=== PATIENT | female | born 1945 | race Caucasian/White ===

== ENCOUNTER → 2017-01-11 | Outpatient (CLI) | payer MEDICARE, OTHER ==
--- NOTE | 2017-01-11 16:41 | RADIOLOGY REPORT (SQ) ---
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 RADIONUCLIDE AND DOSE: 15.0 mCi F18 FDG The route of agent administration: Intravenous FASTING BLOOD SUGAR: 96 mg/dl CONTRAST TYPE AND DOSE: No CT contrast given. TECHNIQUE: Blood glucose level was verified. Above dose of FDG was injected intravenously. 2-D seg mented attenuation correction images were obtained from the base of the skull to the midthighs. Nonc ontrast CT images were obtained for attenuation correction and fusion with emission images. CT image s were performed without oral or intravenous contrast and are not sensitive for parenchymal lesions. A series of overlapping emission PET images were obtained. Images reviewed and manipulated at [facility] work station by the radiologist. Images stored on PACS. LIMITATIONS: None. FINDINGS: HEAD AND NECK: No areas of abnormal metabolic activity in the soft tissues of the head and neck. CHEST: No areas of abnormal metabolic activity in the chest. There are now surgical changes in the r ight breast with a 5 cm non metabolic postoperative fluid collection. Previously seen hypermetabolic right axillary lymph node is no longer present. ABDOMEN AND PELVIS: No areas of abnormal metabolic activity in the abdomen or pelvis. Expected physi ologic activity is present in the genitourinary system and bowel. PROXIMAL LOWER EXTREMITIES: No areas of abnormal metabolic activity in the soft tissues of the lower extremities. ADDITIONAL CT FINDINGS: Bilateral pleural effusions. Vascular access port in the chest. Gallstones. 3 cm right ovarian cyst. OTHER: No other significant findings. IMPRESSION: 1. UNREMARKABLE PET SCAN. THERE ARE SURGICAL CHANGES IN THE RIGHT BREAST WITH POSTOPERATIVE FLUID CO LLECTION, SEROMA. PREVIOUSLY SEEN HYPERMETABOLIC RIGHT AXILLARY LYMPH NODE IS NO LONGER PRESENT. 2. SMALL BILATERAL PLEURAL EFFUSIONS, NOT PRESENT PREVIOUSLY. 3. OTHER INCIDENTAL CT FINDINGS DESCRIBED INCLUDING GALLSTONES AND A RIGHT OVARIAN CYST. TECHNICAL DOCUMENTATION: JOB ID: [id number]- All Rights Reserved
== END ==
LOC: RAD 08:32
PROVIDERS: ATTEND Internal Medicine Medical Oncology
DX: C50.111 Malignant neoplasm of central portion of right female breast (principal); J90 Pleural effusion, not elsewhere classified
CPT/HCPCS: 78815; A9552

== ENCOUNTER → 2017-02-14 | Outpatient (CLI) | payer MEDICARE, OTHER ==
--- NOTE | 2017-02-15 10:50 | RADIOLOGY REPORT (SQ) ---
EXAM DESCRIPTION: MRI BREAST BILAT W AND/OR WO COMPLETED DATE/TIME: 02/14/2017 11:14 am REASON FOR STUDY: MALIGNANT NEOPLASM OF UPPER INNER QUADRANT OF RIGHT BREAST C50.111 MALIGNANT NEOP LASM OF CENTRAL PORTION OF RIGHT FEMAL COMPARISON: Mammograms 05/07/2015, 05/14/2015, 04/26/2016, 02/14/2017 Right breast ultrasound 05/14/2015 Bilateral breast MRI 05/21/2015 PET-CT 01/11/2017 PATHOLOGIC CORRELATION: Right upper inner quadrant breast biopsy 05/14/2015 invasive carcinoma CONTRAST TYPE AND DOSE: 20 mL Prohance. RENAL FUNCTION: GFR > 60. TECHNIQUE: MR imaging performed with a dedicated breast coil. Pre contrast T1 and T2 weighted images . Pre contrast and post contrast enhanced T1 weighted images with fat saturation. Subtraction images, 3D thick and thin MIPS, and kinetic analysis performed on an independent workstat ion. ([employer] workstation) Magnet strength: 1.5 T LIMITATIONS: None. FINDINGS: BREAST DENSITY: b. There are scattered areas of fibroglandular density. BACKGROUND PARENCHYMAL ENHANCEMENT:Minimal. RIGHT BREAST: No enhancing or suspicious masses. No clumped, regional/segmental ductal enhancement. There is a thin walled cavity in the upper inner quadrant of the right breast. There is thin rim of peripheral enhancement. No nodularity or aggressive enhancement worrisome for residual tumor. Remainder of the right breast demonstrates diffuse skin thickening and enhancement, with thickened Co oper's ligaments, related to breast radiation. No worrisome areas of nodularity or enhancement to mcarthur ggest tumor. CHEST WALL: Normal tissue planes. No abnormal internal mammary nodes. AXILLA: Normal axillary and retro-pectoral nodes. LEFT BREAST:No enhancing or suspicious masses. No clumped, regional/segmental ductal enhancement. CHEST WALL: Normal tissue planes. No abnormal internal mammary nodes. AXILLA: Normal axillary and retro-pectoral nodes. OTHER:No identified liver, bone, or lung lesions. No other significant incidental findings. IMPRESSION: Post therapeutic changes right breast. No findings worrisome for residual or recurrent malignancy. Unremarkable MRI left breast. BIRAD: RIGHT BREAST: 2 Benign findings. LEFT BREAST: 1 Negative. RECOMMENDATION: RECOMMENDED FOLLOW-UP: Patient is due for bilateral mammography in April 2017 TECHNICAL DOCUMENTATION: JOB ID: [id number]- All Rights Reserved
--- NOTE | 2017-02-15 15:14 | WOMENS IMAGING REPORT ---
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 LIMITATIONS: None. FINDINGS: BREAST: Right MASSES: In the medial right breast adjacent to biopsy clips, there is a 5 cm diameter well-circumscri bed fluid-filled cavity. This correlates with MRI today. CALCIFICATIONS: No new or suspicious calcifications. ARCHITECTURAL DISTORTION: None. DEVELOPING DENSITY: None. ASYMMETRY: None noted. OTHER: Diffuse profound skin thickening post radiation. Thickened Vijay's ligaments post radiation. Read with the assistance of CAD. .[facility] - R2 C[employer] Version 1.3 .[facility] - R2 Cenova Version 1.3 .[facility] - R2 Cenova Version 2.4 .[facility] [place] R2 Cenova Version 2.4 .[facility] - R2 [employer] Version 9.2 IMPRESSION: Right breast mammogram correlates with MRI findings today, of post therapeutic changes. BREAST DENSITY: b. There are scattered areas of fibroglandular density. BIRAD: 2 Benign findings. RECOMMENDATION: RECOMMENDED FOLLOW UP: Patient is due for bilateral mammography in April 2017 SPECIFIC INTERVENTION/IMAGING/CONSULTATION RECOMMENDED:Bilateral mammography April 2017 COMMUNICATION:Patient notified by letter COMMENT: The patient has been notified of the results by letter per SA requirements. Additional no tification policies are in place for contacting patient with suspicious or incomplete findings. Quality ID #225: The [employer] recommends an annual screening mammogram for women aged 40 years or over. This facility utilizes a reminder system to ensure that all patients receive reminder letters, and/or direct phone calls for appointments. This includes reminders for routine scr eening mammograms, diagnostic mammograms, or other Breast Imaging Interventions when appropriate. Th is patient will be placed in the appropriate reminder system. The [employer] (ACR) has developed recommendations for screening MRI of the breast s in certain patient populations, to be used in conjunction with mammography. Breast MRI surveillanc e may be appropriate for women with more than 20% lifetime risk of developing breast cancer as deter mined by genetic testing, significant family history of the disease, or history of mantle radiation f or Hodgkins Disease. ACR Practice Guidelines 2008. TECHNICAL DOCUMENTATION: FINDING NUMBER: (1) ASSESSMENT: (1) JOB ID: [id number] [employer]- All Rights Reserved
== END ==
LOC: RAD 08:51
PROVIDERS: ATTEND Internal Medicine Medical Oncology
DX: C50.111 Malignant neoplasm of central portion of right female breast (principal); C50.211 Malignant neoplasm of upper-inner quadrant of right female breast
CPT/HCPCS: 82565; A9576; C8906; G0206; 77059

== ENCOUNTER → 2017-07-26 | Outpatient (CLI) | payer MEDICARE, OTHER ==
--- NOTE | 2017-07-26 14:57 | WOMENS IMAGING REPORT ---
EXAM DESCRIPTION: BILAT DIAGNOSTIC MAMMO W/CAD COMPLETED DATE/TIME: 07/26/2017 1:14 pm REASON FOR STUDY: BREAST CANCER SP CHEMOTHERAPY C50.911 MALIGNANT NEOPLASM OF UNSP SITE OF RIGHT FE MALE LINDA COMPARISON: 02/14/2017, 04/26/2016, 09/15/2015, 05/07/2015. TECHNIQUE: Standard craniocaudal and mediolateral oblique views of each breast recorded using digita l acquisition. Additional true lateral image of the right breast also acquired. LIMITATIONS: None. FINDINGS: RIGHT BREAST MASSES: Stable postoperative changes with surgical clips and residual seroma. CALCIFICATIONS: No new or suspicious calcifications. ARCHITECTURAL DISTORTION: None. DEVELOPING DENSITY: None. ASYMMETRY: None noted. OTHER: Stable diffuse skin thickening secondary to treatment changes. LEFT BREAST MASSES: No suspicious masses. CALCIFICATIONS: No new or suspicious calcifications. ARCHITECTURAL DISTORTION: None. DEVELOPING DENSITY: None. ASYMMETRY: None noted. OTHER: No other significant finding. Read with the assistance of CAD: .[facility] - R2 Cenova Version 1.3 .[facility] Imaging - R2 Cenova Version 1.3 .[facility] Imaging - R2 Cenova Version 2.4 .[facility] [place] Cenova Version 2.4 .[facility] - R2 [employer] Version 9.2 IMPRESSION: Stable mammographic appearance of both breasts. Stable surgical changes and treatment c hanges in the right breast. BREAST DENSITY: c. The breasts are heterogeneously dense, which may obscure small masses. BIRAD: 2 Benign findings. RECOMMENDATION: RECOMMENDED FOLLOW UP: Post lumpectomy protocol. COMMENT: The patient has been notified of the results by letter per SA requirements. Additional no tification policies are in place for contacting patient with suspicious or incomplete findings. Quality ID #[id number]: The [employer] recommends an annual screening mammogram for women aged 40 years or over. This facility utilizes a reminder system to ensure that all patients receive reminder letters, and/or direct phone calls for appointments. This includes reminders for routine scr eening mammograms, diagnostic mammograms, or other Breast Imaging Interventions when appropriate. Th is patient will be placed in the appropriate reminder system. The [employer] (ACR) has developed recommendations for screening MRI of the breast s in certain patient populations, to be used in conjunction with mammography. Breast MRI surveillanc e may be appropriate for women with more than 20% lifetime risk of developing breast cancer as deter mined by genetic testing, significant family history of the disease, or history of mantle radiation f or Hodgkins Disease. ACR Practice Guidelines 2008. TECHNICAL DOCUMENTATION: FINDING NUMBER: (1) ASSESSMENT: (1) JOB ID: [id number] [employer]- All Rights Reserved
== END ==
LOC: WI 12:49
PROVIDERS: ATTEND Surgery
DX: C50.911 Malignant neoplasm of unspecified site of right female breast (principal)
CPT/HCPCS: 77066; G0204

== ENCOUNTER 2017-09-30 02:20 | Inpatient (IN) | payer MEDICARE, OTHER ==
--- NOTE | 2017-09-30 02:51 | ER Document Report ---
ED Fall - General Chief Complaint: Fall Injury Stated Complaint: FALL,HIP PAIN Time Seen by Provider: 09/30/17 02:27 Mode of Arrival: Medic Information source: Patient Notes: 72-year-old female presents to ED via EMS after she states she got up to put the dog out became severely dizzy plaque that was not able to sit down but fell down hitting her head bruising the left side of her head knocking her glasses into her nose and scratching the left side of her face. Her complaint when coming into the ED was right hip and wrist pain. She has a history of Parkinson 's TIAs and is supposed to be on blood thinners but states she has not taken them at least a month. She states she is also space to be taking cholesterol medicine but has not taken that in about 6 weeks. She denies any history of any high blood pressure or other cardiac history. She states she also has vertigo and sometimes gets dizzy but has never been this dizzy before in her life. TRAVEL OUTSIDE OF THE [place] IN LAST 30 DAYS: No - HPI Occurred: Other - Around midnight Where: Home, Outdoors Context: Fell from standing Associated symptoms: Other - States she became so dizzy she blacked out and fell Location of injury/pain: Face - Left, Hip, Wrist - Right right Quality of pain: No pain, Sharp, Stabbing Severity: Moderate Pain Level: 4 - Related data Allergies/Adverse Reactions: No Known Allergies Allergy (Unverified 06/19/15 10:58) Past Medical History - General Information source: Patient - Social History Smoking Status: Never Smoker Cigarette use (# per day): No Chew tobacco use (# tins/day): No Smoking Education Provided: No Frequency of alcohol use: None Drug Abuse: None Lives with: Family Family History: Reviewed & Not Pertinent Patient has suicidal ideation: No Patient has homicidal ideation: No - Past Medical History Cardiac Medical History: Reports: Hx Hypercholesterolemia Pulmonary Medical History: Reports: Hx Bronchitis - hx of, Hx Pneumonia - hx of Neurological Medical History: Reports: Hx Cerebrovascular Accident - Multiple TIAs, Other - Parkinson's and vertigo Endocrine Medical History: Reports: None Renal/ Medical History: Reports: None Malignancy Medical History: Reports: Hx Breast Cancer GI Medical History: Reports: None Musculoskeltal Medical History: Reports Hx Arthritis Skin Medical History: Reports None Psychiatric Medical History: Reports: None Traumatic Medical History: Reports: None Infectious Medical History: Reports: None Past Surgical History: Reports: Hx Breast Surgery - Right lumpectomy, Other - Port-A-Cath - Immunizations Hx Diphtheria, Pertussis, Tetanus Vaccination: No Review of Systems - Review of Systems Constitutional: No symptoms reported EENT: No symptoms reported Cardiovascular: Syncope, Dizziness, Lightheaded Respiratory: No symptoms reported Gastrointestinal: No symptoms reported Genitourinary: No symptoms reported Female Genitourinary: No symptoms reported Musculoskeletal: Other - Pain to any movement of the right wrist. Pain to any movement of the right hip. Skin: No symptoms reported Hematologic/Lymphatic: No symptoms reported Neurological/Psychological: No symptoms reported Physical Exam - Vital signs Vitals: Resp BP Pulse Ox 15 139/65 H 95 09/30/17 03:33 09/30/17 03:33 09/30/17 03:33 - General Notes: PHYSICAL EXAMINATION: GENERAL: Well-appearing, well-nourished and in no acute distress. HEAD: Atraumatic, normocephalic. EYES: Pupils equal round and reactive to light, extraocular movements intact, conjunctiva are normal. ENT: Nares patent, oropharynx clear without exudates. Moist mucous membranes. NECK: Normal range of motion, supple without lymphadenopathy LUNGS: Breath sounds clear to auscultation bilaterally and equal. No wheezes rales or rhonchi. HEART: Regular rate and rhythm without murmurs ABDOMEN: Soft, nontender, nondistended abdomen. No guarding, no rebound. No masses appreciated. Female : deferred Musculoskeletal: Pain to any movement of the right wrist. No deformity noted. Refills less than 3 seconds. Pain with any movement of the right hip. No deformity. No rotation noted. Refills less than 3 on the foot. NEUROLOGICAL: Cranial nerves grossly intact. Normal speech, normal gait. Normal sensory, motor exams PSYCH: Normal mood, normal affect. SKIN: Warm, Dry, normal turgor, no rashes or lesions noted. Bruise noted to the left side of the forehead the bridge of the nose on the left side of the face. Course - Re-evaluation Re-evalutation: 09/30/17 06:38 Patient was examined in the ED fall after she became very dizzy while taking the dog out around midnight. She complained of pain to her right wrist and hip and has bruises to the left side of her face. She states she is never been this dizzy before but she does have chronic dizziness from ago and Parkinson's. She states she also has a history of breast cancer with a lumpectomy chemo and radiation. She has a history of elevated cholesterol and states she supposed to be on cholesterol and blood thinners. She states she has a history of multiple TIAs. A CT of the head x-ray of the right hip and wrist were ordered. The CT scan was negative for any acute changes. The x-ray of the hip and wrist were both positive for fractures. As soon as her x-rays were resulted in a fracture of the hip, hospitalist was called for admission. Patient does not have a primary doctor that she has seen at this time she will need surgery for her hip fracture. Hospice came to the emergency room examined her and has put it admission orders. Dr. Win will be consulted in the morning. Patient was treated with 1 mg of Dilaudid IV before going to x-ray. - Vital Signs Vital signs: Temp Pulse Resp BP Pulse Ox 15 139/65 H 95 09/30/17 03:33 09/30/17 03:33 09/30/17 03:33 - Laboratory Result Diagrams: 09/30/17 04:21 09/30/17 04:21 Laboratory results interpreted by me: 09/30/17 09/30/17 04:21 04:21 MCV 98 H MCH 33.6 H Seg Neutrophils % 88.8 H Lymphocytes % 6.2 L Absolute Neutrophils 9.1 H Creatine Kinase 24 L Total Protein 6.1 L - Diagnostic Test Radiology reviewed: Image reviewed, Reports reviewed Discharge - Discharge Clinical Impression: Closed right hip fracture Qualifiers: Encounter type: initial encounter Qualified Code(s): S72.001A - Fracture of unspecified part of neck of right femur, initial encounter for closed fracture Distal radius fracture, right Qualifiers: Encounter type: initial encounter Fracture type: closed Fracture morphology: unspecified fracture morphology Qualified Code(s): S52.501A - Unspecified fracture of the lower end of right radius, initial encounter for closed fracture Fall Qualifiers: Encounter type: initial encounter Qualified Code(s): W19.XXXA - Unspecified fall, initial encounter Disposition: ADMITTED INPATIENT Admitting Provider: Hospitalist - parchment Unit Admitted: Surgical Floor
--- NOTE | 2017-09-30 03:06 | RADIOLOGY REPORT (SQ) ---
EXAM DESCRIPTION: CT HEAD WITHOUT CLINICAL HISTORY: severe dizziness caused fall,hx tia COMPARISON: None available TECHNIQUE: Axial CT of the head obtained from the skull apex to the skull base without contrast. FINDINGS: No acute intracranial hemorrhage identified. No mass, mass effect, shift of the midline, abnormal extra-axial fluid collection or CT evidence of acute ischemic change identified. The ventricular system and sulcal spaces are mildly enlarged compatible with mild cerebral atrophy. Scattered areas of hypodensity throughout the supratentorial white matter are nonspecific and may be related to chronic small vessel ischemic change. Focal region of encephalomalacia involving the right frontal lobe is likely related to remote ischemic change.. The visualized paranasal sinuses and the mastoids are clear. No skull fracture identified. Visualized orbits and globes are unremarkable. Atherosclerotic calcification of the intracranial internal carotid arteries. DLP:1162.97 mGy-cm IMPRESSION: 1. No acute intracranial abnormality by CT criteria. This exam was performed according to our departmental dose-optimization program, which includes automated exposure control, adjustment of the mA and/or kV according to patient size and/or use of iterative reconstruction technique.
[2017-09-30] MEDS ORDERED: MORPHINE SULFATE 10 MG/ML INJ IV ONE (03:28)
[2017-09-30] MEDS ORDERED: ONDANSETRON HCL INJ/PF 4 MG/2 ML SDV IV ONE (03:28)
[2017-09-30] MEDS ORDERED: HYDROMORPHONE HCL INJ/PF 2 MG/ML AMPULE IV ONE (03:49)
--- NOTE | 2017-09-30 03:50 | RADIOLOGY REPORT (SQ) ---
EXAM DESCRIPTION: WRIST RIGHT 3 VIEWS CLINICAL HISTORY: fall pain COMPARISON: None. FINDINGS: 3 views of the right wrist. Acute minimally displaced fracture of the distal right radial metaphysis. Osteopenia. IMPRESSION: 1. Acute minimally displaced fracture of the distal right radial metaphysis.
--- NOTE | 2017-09-30 03:51 | RADIOLOGY REPORT (SQ) ---
EXAM DESCRIPTION: HIP RIGHT AP/LATERAL CLINICAL HISTORY: fall pain COMPARISON: None. FINDINGS: Single view of the pelvis and lateral view of the right hip. Acute mildly displaced subcapital fracture of the right femoral neck. Osteopenia. No other fractures identified. Degenerative change of the visualized lumbar spine. Pelvic soft tissues unremarkable. IMPRESSION: 1. Acute mildly displaced subcapital fracture of the right femoral neck.
--- NOTE | 2017-09-30 03:51 | RADIOLOGY REPORT (SQ) ---
EXAM DESCRIPTION: CHEST SINGLE VIEW CLINICAL HISTORY: severe dizziness caused fall,hx tia COMPARISON: None. FINDINGS: Single frontal view of the chest. The cardiomediastinal silhouette has normal size and contour. Left subclavian Mediport with tip in the SVC. No consolidation, pneumothorax, or pleural effusion. No displaced rib fractures identified. Upper abdominal soft tissues are unremarkable. IMPRESSION: 1. No acute pulmonary process identified.
[2017-09-30] MEDS ORDERED: OXYCODONE-ACETAMINOPHEN 5-325 MG TABLET PO PRN (04:32)
[2017-09-30 04:35] LABS: ABSOLUTE LYMPHOCYTES (AUTO) 0.6 10^3/uL (0.5-4.7); ABSOLUTE MONOCYTES (AUTO) 0.5 10^3/uL (0.1-1.4); ABSOLUTE NEUT (AUTO) 9.1 10^3/uL (1.7-8.2); BASOPHILS % (AUTO) 0.3 % (0-2); EOSINOPHILS % (AUTO) 0.3 % (0-6); HEMATOCRIT 39.7 % (36.0-47.0); HEMOGLOBIN 13.6 g/dL (12.0-15.5); LYMPHOCYTES % (AUTO) 6.2 % (13-45); MEAN CORPUSCULAR HEMOGLOBIN 33.6 pg (27.0-33.4); MEAN CORPUSCULAR HGB CONC 34.3 g/dL (32.0-36.0); MEAN CORPUSCULAR VOLUME 98 fl (80-97); MONOCYTES % (AUTO) 4.4 % (3-13); PLATELET COUNT 185 10^3/uL (150-450); RED BLOOD COUNT 4.05 10^6/uL (3.72-5.28); RED CELL DISTRIBUTION WIDTH 12.1 % (11.5-14.0); SEGMENTED NEUTROPHILS % (AUTO) 88.8 % (42-78); TOTAL CELLS COUNTED % (AUTO) 100 %; WHITE BLOOD COUNT 10.3 10^3/uL (4.0-10.5)
[2017-09-30] MEDS ORDERED: IBUPROFEN 400 MG TABLET PO PRN (04:41)
[2017-09-30] MEDS ORDERED: DIAZEPAM 5 MG TABLET PO PRN (04:41)
[2017-09-30 04:49] LABS: ALANINE AMINOTRANSFERASE 26 U/L (9-52); ALKALINE PHOSPHATASE 67 U/L (38-126); ANION GAP 9 (5-19); ASPARTATE AMINO TRANSFERASE 24 U/L (14-36); BILIRUBIN,DIRECT 0.1 mg/dL (0.0-0.4); BILIRUBIN,TOTAL 0.3 mg/dL (0.2-1.3); BLOOD UREA NITROGEN 15 mg/dL (7-20); CALCIUM 9.3 mg/dL (8.4-10.2); CARBON DIOXIDE 30 mmol/L (22-30); CHLORIDE 104 mmol/L (98-107); CREATINE KINASE 24 U/L (30-135); GLUCOSE 104 mg/dL (75-110); POTASSIUM 3.9 mmol/L (3.6-5.0); SODIUM 143.1 mmol/L (137-145); TOTAL PROTEIN 6.1 g/dL (6.3-8.2)
[2017-09-30 05:02] LABS: CREATINE KINASE MB < 0.22 ng/mL (<4.55); TROPONIN I < 0.012 ng/mL
[2017-09-30] MEDS: RINGERS SOLUTION,LACTATED 1,000 ML IV PRN (05:31)
[2017-09-30] MEDS ORDERED: CARBIDOPA/LEVODOPA 25-250 MG TABLET ONE (05:58)
[2017-09-30] MEDS ORDERED: CARBIDOPA/LEVODOPA 25-250 MG TABLET PO ONE (06:00)
[2017-09-30] MEDS: OXYCODONE HCL IR 5 MG TABLET PO PRN (06:02)
[2017-09-30 06:12] LABS: APPEARANCE,URINE CLEAR; BILIRUBIN,URINE NEGATIVE (NEGATIVE); COLOR,URINE YELLOW; GLUCOSE, URINE NEGATIVE (NEGATIVE); KETONES,URINE NEGATIVE (NEGATIVE); LEUKOCYTE ESTERASE,URINE NEGATIVE (NEGATIVE); NITRITE,URINE NEGATIVE (NEGATIVE); PROTEIN,URINE NEGATIVE (NEGATIVE); URINE SPECIFIC GRAVITY 1.014; UROBILINOGEN,URINE NEGATIVE mg/dL (<2.0)
--- NOTE | 2017-09-30 06:16 | PDOC H&P ---
History of Present Illness Admission Date/PCP: She is establishing care with PCP in [place]. Patient complains of: Fall right hip and wrist pain History of Present Illness: JANETH MIRANDA is a 72 year old female with a past medical history of right breast cancer, TIA and Parkinson's disease presenting to the ED following a fall at her home. Patient got up around midnight to let her dog out of the house. Patient states she was just about to go to bed when the dog wanted to go out. She was able to let the dog out however when the dog was coming back in she fell. She went to turn around and the room was spinning and would not stop. She fell on her right side on the floor. She fell on a tiled floor. Patient did have a rolling walker nearby but did not think to sit down in it when became dizzy. Patient also hurt her right wrist. Patient was able to scoot back to her chair and pull herself up and sit in the chair. Patient went to call her daughter. Her daughter then called EMS. EMS came to evaluate the patient stated that her hip was not broken. They went as far as to stand patient up however patient was unable to move her right leg. Patient was brought to the ED for further evaluation. Patient reports having some right lower quadrant discomfort when he gets closer time for her to take her Sinemet. Otherwise patient states she has been feeling well. Patient denies any chest pain or shortness of breath with activity. Patient has never had a stress test before. Patient denies any history of MIs. Patient did have a TIA patient states that was about a year ago. Presentation to the ED patient was noted to have a right wrist and right hip fracture on x-ray. Patient CT head was negative and chest x-ray was negative. EKG was normal. Past Medical History Cardiac Medical History: Reports: Hyperlipidema Denies: Myocardial Infarction, Hypertension Pulmonary Medical History: Reports: Bronchitis - hx of, Pneumonia - hx of Denies: Asthma - sinuses, Chronic Obstructive Pulmonary Disease (COPD) Neurological Medical History: Reports: Other - Parkinson's and vertigo Denies: Seizures Endocrine Medical History: Reports: None Renal/ Medical History: Reports: None Malignancy Medical History: Reports: None, Breast Cancer GI Medical History: Reports: None Musculoskeltal Medical History: Reports: None, Arthritis Skin Medical History: Reports: None Psychiatric Medical History: Reports: None Traumatic Medical History: Reports: None Hematology: Denies: Anemia Infectious Medical History: Reports: None Past Surgical History Past Surgical History: Reports: None, Other - Port-A-Cath Social History Lives with: Family Smoking Status: Never Smoker Hx Recreational Drug Use: No Hx Prescription Drug Abuse: No Family History Family History: Other - Melanoma Parental Family History Reviewed: No Children Family History Reviewed: No Sibling(s) Family History Reviewed.: No Medication/Allergy Home Medications: Clopidogrel Bisulfate [Plavix 75 mg Tablet] 75 mg PO DAILY 06/19/15 Diazepam [Valium] 10 mg PO ASDIR PRN 06/19/15 Diphenhydramine HCl [Allergy] 25 mg PO ASDIR PRN 06/19/15 Fenofibrate Nanocrystallized [Fenofibrate] 145 mg PO DAILY 06/19/15 Guaifenesin/Dextromethorphan [Refenesen Dm Caplet] 1 each PO DAILY 06/19/15 Ibuprofen [Motrin 400 mg Tablet] 400 mg PO ASDIR PRN 06/19/15 Omega3/Dha/Epa/Fish Oil/Sunflw [[place]-3 Dha Powder] 100 gm MC DAILY 06/19/15 Pumpkin Seed Extract/Soy Germ [Azo Bladder Control Capsule] 300 mg PO DAILY Oxycodone HCl/Acetaminophen [Percocet 5-325 mg Tablet] 1 - 2 tab PO ASDIR PRN # 30 tablet 06/25/15 Allergies/Adverse Reactions: No Known Allergies Allergy (Unverified 06/19/15 10:58) Review of Systems Constitutional: ABSENT: chills, fever(s), headache(s), weight gain, weight loss Eyes: ABSENT: visual disturbances Ears: ABSENT: hearing changes Cardiovascular: ABSENT: chest pain, dyspnea on exertion, edema, orthropnea, palpitations Respiratory: ABSENT: cough, hemoptysis Gastrointestinal: PRESENT: other - Right lower quadrant intermittent pain. ABSENT: abdominal pain, constipation, diarrhea, hematemesis, hematochezia, nausea, vomiting Genitourinary: ABSENT: dysuria, hematuria Musculoskeletal: PRESENT: other - Right hip and right wrist pain Integumentary: ABSENT: rash, wounds Neurological: ABSENT: abnormal gait, abnormal speech, confusion, dizziness, focal weakness, syncope Psychiatric: ABSENT: anxiety, depression, homidical ideation, suicidal ideation Endocrine: ABSENT: cold intolerance, heat intolerance, polydipsia, polyuria Hematologic/Lymphatic: ABSENT: easy bleeding, easy bruising Physical Exam Vital Signs: Temp Pulse Resp BP Pulse Ox 15 139/65 H 95 09/30/17 03:33 09/30/17 03:33 09/30/17 03:33 General appearance: PRESENT: no acute distress, well-developed, well-nourished Head exam: PRESENT: atraumatic, normocephalic Eye exam: PRESENT: EOMI. ABSENT: scleral icterus Ear exam: PRESENT: normal external ear exam Mouth exam: PRESENT: moist Neck exam: ABSENT: carotid bruit, JVD, lymphadenopathy, thyromegaly Respiratory exam: PRESENT: clear to auscultation nakul. ABSENT: rales, rhonchi, wheezes Cardiovascular exam: PRESENT: RRR. ABSENT: diastolic murmur, rubs, systolic murmur Pulses: PRESENT: normal dorsalis pedis pul Vascular exam: PRESENT: normal capillary refill GI/Abdominal exam: PRESENT: normal bowel sounds, soft. ABSENT: distended, guarding, mass, organolmegaly, rebound, tenderness Rectal exam: PRESENT: deferred Extremities exam: PRESENT: full ROM. ABSENT: calf tenderness, clubbing, pedal edema Musculoskeletal exam: PRESENT: other - Right wrist tenderness right hip tenderness decreased movement Neurological exam: PRESENT: alert, awake, oriented to person, oriented to place , oriented to time, oriented to situation, CN II-XII grossly intact. ABSENT: motor sensory deficit Psychiatric exam: PRESENT: appropriate affect, flat affect, normal mood. ABSENT : homicidal ideation, suicidal ideation Skin exam: PRESENT: dry, intact, warm. ABSENT: cyanosis, rash Results Laboratory Results: 09/30/17 04:21 09/30/17 04:21 WBC 10.3 RBC 4.05 Hgb 13.6 Hct 39.7 MCV 98 H MCH 33.6 H MCHC 34.3 RDW 12.1 Plt Count 185 Seg Neutrophils % 88.8 H Lymphocytes % 6.2 L Monocytes % 4.4 Eosinophils % 0.3 Basophils % 0.3 Absolute Neutrophils 9.1 H Absolute Lymphocytes 0.6 Absolute Monocytes 0.5 Absolute Eosinophils 0.0 Absolute Basophils 0.0 Impressions: Hip/Pelvis X-Ray 09/30/17 02:28 IMPRESSION: 1. Acute mildly displaced subcapital fracture of the right femoral neck. Wrist X-Ray 09/30/17 02:28 IMPRESSION: 1. Acute minimally displaced fracture of the distal right radial metaphysis. Chest X-Ray 09/30/17 02:38 IMPRESSION: 1. No acute pulmonary process identified. Head CT 09/30/17 02:38 IMPRESSION: 1. No acute intracranial abnormality by CT criteria. This exam was performed according to our departmental dose-optimization program, which includes automated exposure control, adjustment of the mA and/or kV according to patient size and/or use of iterative reconstruction technique. Assessment & Plan - Diagnosis (1) Closed right hip fracture Qualifiers: Encounter type: initial encounter Qualified Code(s): S72.001A - Fracture of unspecified part of neck of right femur, initial encounter for closed fracture Plan: Patient with acute mildly displaced subcapital fracture of the right femoral neck after a fall. Patient currently on bedrest. Patient requested Norris catheter. Orthopedics consulted. Attempting to manage pain. Patient n.p.o. on IV fluids. Discharge planning consulted for rehab following surgery. (2) Distal radius fracture, right Qualifiers: Encounter type: initial encounter Fracture type: closed Fracture morphology: unspecified fracture morphology Qualified Code(s): S52.501A - Unspecified fracture of the lower end of right radius, initial encounter for closed fracture Is this a current diagnosis for this admission?: Yes Plan: Patient with acute minimally displaced fracture of the distal right radial metaphysis. Splint was placed in the ED. Continue pain management. (3) Parkinson disease Is this a current diagnosis for this admission?: Yes Plan: Patient with history of Parkinson's disease. Patient on Sinemet 25- 250 mg 4 times a day. She takes the medication at 3am, 9am, 3pm, 9pm. Patient was given a stat dose in ED. (4) Pre-operative clearance Is this a current diagnosis for this admission?: Yes Plan: Patient has no cardiac history. Denies any cardiac symptoms with activity. This is intermediate risk surgery. Patient is older in age and does have a history of TIA. Patient may have fairly good functional capacity considering that she lives alone. Patient is clear from a medical standpoint for surgery. Patient will be placed on telemetry and monitor following the procedure. (5) Insomnia Is this a current diagnosis for this admission?: Yes Plan: Patient complains of having problems with insomnia. Patient takes gabapentin at night to help with sleeping however does not work. Patient was taken Valium in the past however there was concern that patient was developing a habit. Patient is no longer on this medication. Patient given trazodone and gabapentin nightly for rest. (6) Abdominal pain Qualifiers: Abdominal location: lower abdomen, unspecified Qualified Code(s): R10.30 - Lower abdominal pain, unspecified Is this a current diagnosis for this admission?: Yes Plan: Patient has right lower quadrant intermittent tenderness. Patient states she often gets that discomfort close to when she has to take her Sinemet. Not sure if this is clinically relevant. Will order an abdominal US. (7) Fall Is this a current diagnosis for this admission?: Yes Plan: Patient had a fall after becoming dizzy or orthostatic. Patient does have history of Parkinson's disease and may suffer from orthostasis. Will not be able to evaluate for orthostatic hypotension at this time as patient hip is broken and her positions cannot be changed. Possibly following her procedure this can be evaluated. CT head was negative. - Time Time Spent: 30 to 50 Minutes Anticipated discharge: SNF Within: Other - Inpatient Certification Medical Necessity: Need for Surgery
[2017-09-30] MEDS ORDERED: KETAMINE HCL INJ 500 MG/10 ML VIAL ONE (08:06)
[2017-09-30] MEDS ORDERED: FENTANYL CITRATE INJ/PF 100 MCG/2 ML AMPUL ONE ×2 (08:07→09:26)
[2017-09-30] MEDS ORDERED: MIDAZOLAM 2 MG/2 ML INJ ONE (08:07)
[2017-09-30] MEDS ORDERED: ONDANSETRON HCL INJ/PF 4 MG/2 ML SDV ONE (08:07)
[2017-09-30] MEDS ORDERED: PROPOFOL INJ 200 MG/20 ML VIAL IV ONE (08:08)
[2017-09-30] MEDS ORDERED: TRANEXAMIC ACID INJ/PF 1,000 MG/10 ML SDV IV ONE ×3 (08:08→13:20)
--- NOTE | 2017-09-30 08:11 | PDOC CONSULTATION ---
Consultation Consult Date: 09/30/17 Consult reason:: Right hip fracture History of Present Illness Admission Date/PCP: 09/30/17 04:54 History of Present Illness: Patient is a 72-year-old white female being treated for breast cancer who was a community ambulator. She took her dog outside tripped and fell and sustained a right hip injury. She also sustained a right wrist injury which was evaluated in emergency room and found to be a torus fracture of the right distal radius. This is been splinted. Past Medical History Cardiac Medical History: Reports: Hyperlipidema Denies: Myocardial Infarction, Hypertension Pulmonary Medical History: Reports: Bronchitis - hx of, Pneumonia - hx of Denies: Asthma - sinuses, Chronic Obstructive Pulmonary Disease (COPD) Neurological Medical History: Denies: Seizures Endocrine Medical History: Reports: None Renal/ Medical History: Reports: None Malignancy Medical History: Reports: None, Breast Cancer GI Medical History: Reports: None Musculoskeltal Medical History: Reports: None, Arthritis Skin Medical History: Reports: None Psychiatric Medical History: Reports: None Traumatic Medical History: Reports: None Hematology: Denies: Anemia Infectious Medical History: Reports: None Past Surgical History Past Surgical History: Reports: None Social History Information Source: Patient, Relative, REPLACED BY [facility] Records Lives with: Alone, Family Smoking Status: Never Smoker Hx Recreational Drug Use: No Hx Prescription Drug Abuse: No - Advance Directive Resuscitation Status: Full Code Family History Family History: Reviewed & Not Pertinent Parental Family History Reviewed: No Children Family History Reviewed: No Sibling(s) Family History Reviewed.: No Medication/Allergy Home Medications: Clopidogrel Bisulfate [Plavix 75 mg Tablet] 75 mg PO DAILY 06/19/15 Diazepam [Valium] 10 mg PO ASDIR PRN 06/19/15 Diphenhydramine HCl [Allergy] 25 mg PO ASDIR PRN 06/19/15 Fenofibrate Nanocrystallized [Fenofibrate] 145 mg PO DAILY 06/19/15 Guaifenesin/Dextromethorphan [Refenesen Dm Caplet] 1 each PO DAILY 06/19/15 Ibuprofen [Motrin 400 mg Tablet] 400 mg PO ASDIR PRN 06/19/15 Omega3/Dha/Epa/Fish Oil/Sunflw [[place]-3 Dha Powder] 100 gm MC DAILY 06/19/15 Pumpkin Seed Extract/Soy Germ [Azo Bladder Control Capsule] 300 mg PO DAILY Oxycodone HCl/Acetaminophen [Percocet 5-325 mg Tablet] 1 - 2 tab PO ASDIR PRN # 30 tablet 06/25/15 Allergies/Adverse Reactions: No Known Allergies Allergy (Unverified 06/19/15 10:58) Review of Systems All systems: as per [facility] Physical Exam Vital Signs: Temp Pulse Resp BP Pulse Ox 15 139/65 H 95 09/30/17 03:33 09/30/17 03:33 09/30/17 03:33 Physical Exam: The patient is a moderately built middle-aged white female lying in [facility]. She is accompanied by both daughters. Is a fair amount of anxiety within the room. General appearance: PRESENT: mild distress Head exam: PRESENT: normocephalic Respiratory exam: PRESENT: unlabored Cardiovascular exam: PRESENT: RRR Pulses: PRESENT: +1 pedal pulses bilateral Vascular exam: PRESENT: normal capillary refill GI/Abdominal exam: PRESENT: soft Rectal exam: PRESENT: deferred Extremities exam: PRESENT: other - Right lower extremity is shortened and internally rotated is still neurovascular examination is intact. Musculoskeletal exam: PRESENT: other - Right upper extremity is immobilized in a long-arm fiberglass splint. Distal neurovascular examination of the fingers is intact. Neurological exam: PRESENT: alert, awake, oriented to person, oriented to place , oriented to time, oriented to situation. ABSENT: motor sensory deficit Psychiatric exam: PRESENT: anxious, appropriate affect, normal mood. ABSENT: homicidal ideation, suicidal ideation Skin exam: PRESENT: dry, intact, warm. ABSENT: cyanosis, rash Results Laboratory Results: 09/30/17 05:43 Urine Color YELLOW Urine Appearance CLEAR Urine pH 7.0 Ur Specific [place] 1.014 Urine Protein NEGATIVE Urine Glucose (UA) NEGATIVE Urine Ketones NEGATIVE Urine Blood NEGATIVE Urine Nitrite NEGATIVE Ur Leukocyte Esterase NEGATIVE Urine WBC (Auto) 0 Urine RBC (Auto) 0 Impressions: Hip/Pelvis X-Ray 09/30/17 02:28 IMPRESSION: 1. Acute mildly displaced subcapital fracture of the right femoral neck. Wrist X-Ray 09/30/17 02:28 IMPRESSION: 1. Acute minimally displaced fracture of the distal right radial metaphysis. Chest X-Ray 09/30/17 02:38 IMPRESSION: 1. No acute pulmonary process identified. Head CT 09/30/17 02:38 IMPRESSION: 1. No acute intracranial abnormality by CT criteria. This exam was performed according to our departmental dose-optimization program, which includes automated exposure control, adjustment of the mA and/or kV according to patient size and/or use of iterative reconstruction technique. Status: Imported from PACS Assessment & Plan - Diagnosis (1) Closed right hip fracture Qualifiers: Encounter type: initial encounter Qualified Code(s): S72.001A - Fracture of unspecified part of neck of right femur, initial encounter for closed fracture Is this a current diagnosis for this admission?: Yes Plan: Plan for hemiarthroplasty pending or availability (2) Distal radius fracture, right Qualifiers: Encounter type: initial encounter Fracture type: closed Fracture morphology: unspecified fracture morphology Qualified Code(s): S52.501A - Unspecified fracture of the lower end of right radius, initial encounter for closed fracture Is this a current diagnosis for this admission?: Yes Plan: This can be treated nonoperatively in a splint - Time Time Spent: 50 to 70 Minutes Anticipated discharge: Home with Homehealth Within: within 48 hours
--- NOTE | 2017-09-30 08:53 | RADIOLOGY REPORT (SQ) ---
EXAM DESCRIPTION: U/S ABDOMEN COMPLETE W/O DOP COMPLETED DATE/TIME: 09/30/2017 7:27 am REASON FOR STUDY: RLQ pain COMPARISON: None TECHNIQUE: Dynamic and static grayscale images acquired of the abdomen and recorded on PACS. Additio nal selected color Doppler and spectral images recorded. LIMITATIONS: Study limited due to acoustical interference from fat or from air in the bowel. FINDINGS: PANCREAS: Obscured. LIVER: No masses. No dilated ducts. LIVER VASCULATURE: Normal directional flow of the main portal vein and hepatic veins. GALLBLADDER: No stones. Normal wall thickness. No pericholecystic fluid. ULTRASOUND-DETECTED ROLLINS'S SIGN: Negative. INTRAHEPATIC DUCTS AND COMMON DUCT:CBD and intrahepatic ducts normal caliber. No filling defects. INFERIOR VENA CAVA: Normal flow. AORTA: Obscured. RIGHT KIDNEY: Normal size. Normal echogenicity. No solid or suspicious masses. No hydronephrosis. No calcifications. LEFT KIDNEY: Normal size. Normal echogenicity. No solid or suspicious masses. No hydronephrosis. No calcifications. SPLEEN:Normal size. No solid masses. PERITONEAL AND PLEURAL SPACES: No ascites or effusions. OTHER: No other significant finding. IMPRESSION: LIMITED STUDY. NO SIGNIFICANT FINDING IN THE VISUALIZED ABDOMEN. TECHNICAL DOCUMENTATION: JOB ID: [id number] [employer]- All Rights Reserved
[2017-09-30] MEDS ORDERED: CEFAZOLIN INJ 1 GM VIAL ONE (08:57)
[2017-09-30] MEDS ORDERED: CARBIDOPA/LEVODOPA 25-250 MG TABLET PO SCH (09:00)
[2017-09-30] MEDS ORDERED: FENTANYL CITRATE INJ/PF 100 MCG/2 ML AMPUL IV PRN ×3 (09:50)
[2017-09-30] MEDS ORDERED: DIPHENHYDRAMINE HCL 50 MG/ML VIAL IV PRN ×2 (09:50→11:15)
[2017-09-30] MEDS ORDERED: MEPERIDINE HCL/PF INJ 25 MG/1 ML DISP.SYRIN IV PRN (09:50)
[2017-09-30] MEDS ORDERED: MORPHINE SULFATE 10 MG/ML INJ IV PRN (09:50)
[2017-09-30] MEDS ORDERED: PROMETHAZINE HCL INJ 25 MG/1 ML VIAL IV PRN (09:50)
[2017-09-30] MEDS ORDERED: DIAZEPAM INJ 10 MG/2 ML DISP.SYRIN IV ONE (09:50)
[2017-09-30] MEDS ORDERED: DIAZEPAM INJ 10 MG/2 ML DISP.SYRIN ONE (09:56)
[2017-09-30] MEDS ORDERED: FENOFIBRATE NANOCRYSTALLIZED 145 MG TABLET PO SCH (10:00)
--- NOTE | 2017-09-30 10:17 | EKG REPORT ---
SEVERITY:- ABNORMAL ECG - SINUS RHYTHM ABNRM R PROG, CONSIDER ASMI OR LEAD PLACEMENT : Confirmed by: Shaista Steen 30-Sep-2017 10:17:04
[2017-09-30] MEDS ORDERED: THROMBIN (BOVINE) TOPICAL 20000 UNIT VIAL ONE (10:26)
[2017-09-30] MEDS ORDERED: THROMBIN (BOVINE) 5000 UNIT EPITAXIS KIT ONE (10:31)
[2017-09-30] MEDS: BUPIVACAINE INJ/PF LIPOSOME/PF 266 MG/20 ML SDV ONE ×2 (10:37→11:11)
[2017-09-30] MEDS: THROMBIN (BOVINE) 5000 UNIT EPITAXIS KIT ONE ×2 (10:38→11:08)
[2017-09-30] MEDS: THROMBIN (BOVINE) TOPICAL 20000 UNIT VIAL ONE ×2 (10:53→11:08)
--- NOTE | 2017-09-30 11:14 | Operative Report ---
Operative Report DATE OF SURGERY: 09/30/17 PREOPERATIVE DIAGNOSIS: Right femoral neck fracture OPERATION: Right proximal femoral hemiarthroplasty SURGEON: JANET LAWRENCE ANESTHESIA: Spinal TISSUE REMOVED OR ALTERED: Femoral head to pathology ESTIMATED BLOOD LOSS: 100 PROCEDURE: [place] size 5 Accolade 2 stem Standard neck 45 mm unipolar head With the patient in a left lateral decubitus position the right lower extremity hindquarter prepped and draped in a sterile fashion. A curvilinear incision made over the greater trochanter a posterior approach the hip was taken. The femur was retracted anteriorly and underlying femoral neck and head are retrieved using a corkscrew. The femoral head was measured and noted to be 45 millimeters. Attention is now turned to the femur. Access is gained to the femoral canal using a box osteotome to the piriformis fossa. The femur is then prepared using a series of tapered broaches until a number 5 broach is seated. A trial reduction was now performed using a standard head and 45 neck. Leg length was restored and there is excellent anterior posterior stability. A decision was made to proceed with this construct. All trial implants were removed. The final number 5 femoral stem is impacted into the canal. The standard neck is impacted onto the trunnion. Final unipolar head 45 millimeters is impacted onto the neck. The hip was reduced. The wound is copiously irrigated with pulsed lavage. A subsequent closed in layers using Vicryl and nel. A sterile dressing is applied. The patient was returned to the recovery room in satisfactory condition.
[2017-09-30] MEDS ORDERED: MAG HYDROX/AL HYDROX/SIMETH SUSP 30 ML UDCUP PO PRN (11:15)
[2017-09-30] MEDS ORDERED: ACETAMINOPHEN 325 MG TABLET PO PRN (11:15)
[2017-09-30] MEDS ORDERED: ONDANSETRON HCL INJ/PF 4 MG/2 ML SDV IV PRN (11:15)
[2017-09-30] MEDS ORDERED: ONDANSETRON 4 MG TAB.RAPDIS PO PRN (11:15)
[2017-09-30] MEDS ORDERED: ZOLPIDEM TARTRATE 5 MG TABLET PO PRN (11:15)
[2017-09-30] MEDS: CARBIDOPA/LEVODOPA 25-250 MG TABLET PO SCH ×3 (12:00→22:07)
[2017-09-30] MEDS ORDERED: HYDROMORPHONE HCL INJ/PF 2 MG/ML AMPULE IV PRN (12:03)
[2017-09-30] MEDS ORDERED: HYDROMORPHONE HCL INJ/PF 2 MG/ML AMPULE ONE (12:07)
[2017-09-30] MEDS ORDERED: KETOROLAC TROMETHAMINE INJ/PF 30 MG/1 ML SDV ONE (13:00)
--- NOTE | 2017-09-30 14:14 | RADIOLOGY REPORT (SQ) ---
EXAM DESCRIPTION: PELVIS AP COMPLETED DATE/TIME: 09/30/2017 1:41 pm REASON FOR STUDY: Post Op Long Cassette in PACU COMPARISON: 09/30/2017. NUMBER OF VIEWS: One view TECHNIQUE: Digital radiographic images of the pelvis post-procedure LIMITATIONS: None. FINDINGS: BONES: No worrisome or unexpected findings post-procedure. DEVICE: Bi-polar prothesis. Device appears in appropriate location. SOFT TISSUES: No worrisome findings. Expected postoperative soft tissue changes. IMPRESSION: SATISFACTORY POSTOPERATIVE PELVIS. TECHNICAL DOCUMENTATION: JOB ID: [id number] [employer]- All Rights Reserved
[2017-09-30] MEDS: DOCUSATE SODIUM 100 MG CAPSULE PO SCH (14:48)
[2017-09-30] MEDS: PANTOPRAZOLE SODIUM 40 MG VIAL IV SCH ×2 (14:48→22:07)
[2017-09-30] MEDS: ASPIRIN 81 MG TABLET, ENT COATED PO SCH (14:48)
--- NOTE | 2017-09-30 16:44 | PDOC PROGRESS REPORT ---
Subjective Progress Note for:: 09/30/17 Subjective:: 72-year-old female with past medical history of R Breast cancer TIA Parkinson's disease She presented to the hospital after sustaining a fall at home when she got up around midnight to that her dog out of the house. When she turned around the room was spinning and she fell on her right side to Floor which was tiled. She sustained pain in her right hip and wrist and was found to have fractures of both the right wrist and the right hip. CT of the head was negative. Chest x-ray was within normal limits. EKG was within normal limits. She got back from surgery. Pain is reasonably well controlled. Reason For Visit: RIGHT HIP AND WRIST FRACTURE Physical Exam Vital Signs: Temp Pulse Resp BP Pulse Ox 15 139/65 H 95 09/30/17 03:33 09/30/17 03:33 09/30/17 03:33 Additional comments: Elderly female lying in bed not in acute distress Lungs: Clear to auscultation bilaterally, normal Tory effort Cardiac: S1-S2 regular, no cyanosis no thrills palpable no murmurs heard no JVD Abdomen: Soft, no focal tenderness normal bowel sounds Skin: Warm and dry R upper extremity in sling. Results Laboratory Results: 09/30/17 05:43 Urine Color YELLOW Urine Appearance CLEAR Urine pH 7.0 Ur Specific [place] 1.014 Urine Protein NEGATIVE Urine Glucose (UA) NEGATIVE Urine Ketones NEGATIVE Urine Blood NEGATIVE Urine Nitrite NEGATIVE Ur Leukocyte Esterase NEGATIVE Urine WBC (Auto) 0 Urine RBC (Auto) 0 Impressions: Hip/Pelvis X-Ray 09/30/17 02:28 IMPRESSION: 1. Acute mildly displaced subcapital fracture of the right femoral neck. Wrist X-Ray 09/30/17 02:28 IMPRESSION: 1. Acute minimally displaced fracture of the distal right radial metaphysis. Chest X-Ray 09/30/17 02:38 IMPRESSION: 1. No acute pulmonary process identified. Head CT 09/30/17 02:38 IMPRESSION: 1. No acute intracranial abnormality by CT criteria. This exam was performed according to our departmental dose-optimization program, which includes automated exposure control, adjustment of the mA and/or kV according to patient size and/or use of iterative reconstruction technique. Assessment & Plan - Diagnosis (1) Closed right hip fracture Qualifiers: Encounter type: initial encounter Qualified Code(s): S72.001A - Fracture of unspecified part of neck of right femur, initial encounter for closed fracture Plan: Mildly displaced subcapital fracture of the right femur neck. Currently on bedrest. Orthopedic consultation requested. Continue analgesics for pain management. She is n.p.o. on IV fluids. Next (2) Distal radius fracture, right Qualifiers: Encounter type: initial encounter Fracture type: closed Fracture morphology: unspecified fracture morphology Qualified Code(s): S52.501A - Unspecified fracture of the lower end of right radius, initial encounter for closed fracture Is this a current diagnosis for this admission?: Yes Plan: [place] was placed in the ED. Continue pain management. Orthopedic evaluation. (3) Abdominal pain Qualifiers: Abdominal location: lower abdomen, unspecified Qualified Code(s): R10.30 - Lower abdominal pain, unspecified Is this a current diagnosis for this admission?: Yes (4) Fall Qualifiers: Encounter type: initial encounter Qualified Code(s): W19.XXXA - Unspecified fall, initial encounter Is this a current diagnosis for this admission?: Yes Plan: Could have been secondary to orthostasis as a result of her Parkinson's disease. All precautions and bedrest for now. (5) Insomnia Is this a current diagnosis for this admission?: Yes Plan: Trazodone and gabapentin. (6) Parkinson disease Is this a current diagnosis for this admission?: Yes (7) Pre-operative clearance Is this a current diagnosis for this admission?: Yes Plan: No cardiac history. Denies any chest pain or dyspnea with activity. Given her old age and history of TIA she is at intermediate risk for surgery. (8) Breast CA Is this a current diagnosis for this admission?: No - Time Time Spent with patient: 25-34 minutes
[2017-09-30] MEDS ORDERED: ACETAMINOPHEN 100 ML IV ONE (17:15)
[2017-09-30] MEDS: SENNOSIDES/DOCUSATE 8.6-50 MG 1 EACH TABLET PO SCH (17:21)
[2017-09-30] MEDS: HYDROMORPHONE HCL INJ/PF 2 MG/ML AMPULE IV PRN (17:26)
[2017-09-30] MEDS ORDERED: VANCOMYCIN HCL INJ 1000 MG VIAL ONE (21:13)
[2017-09-30] MEDS: OXYCODONE HCL SR 10 MG TABLET PO SCH (22:07)
[2017-09-30] MEDS: TRAZODONE HCL 50 MG TABLET PO SCH (22:07)
[2017-09-30] MEDS: GABAPENTIN 300 MG CAPSULE PO SCH ×2 (22:08→22:09)
[2017-09-30] MEDS ORDERED: VANCOMYCIN HCL 1,000 MG in DEXTROSE 5%-WATER 250 ML IV ONE (23:15)
[2017-10-01] MEDS: CARBIDOPA/LEVODOPA 25-250 MG TABLET PO SCH ×4 (05:28→23:40)
[2017-10-01] MEDS: LANSOPRAZOLE 30 MG TAB.RAP.DR PO SCH (05:28)
[2017-10-01] MEDS: OXYCODONE HCL IR 5 MG TABLET PO PRN ×2 (05:29→17:44)
[2017-10-01 06:25] LABS: ABSOLUTE EOSINOPHILS # (AUTO) 0.1 10^3/uL (0.0-0.6); ABSOLUTE LYMPHOCYTES (AUTO) 0.6 10^3/uL (0.5-4.7); ABSOLUTE MONOCYTES (AUTO) 0.3 10^3/uL (0.1-1.4); ABSOLUTE NEUT (AUTO) 5.2 10^3/uL (1.7-8.2); BASOPHILS % (AUTO) 0.2 % (0-2); EOSINOPHILS % (AUTO) 0.9 % (0-6); HEMATOCRIT 30.6 % (36.0-47.0); LYMPHOCYTES % (AUTO) 9.8 % (13-45); MEAN CORPUSCULAR HEMOGLOBIN 34.4 pg (27.0-33.4); MEAN CORPUSCULAR HGB CONC 34.7 g/dL (32.0-36.0); MEAN CORPUSCULAR VOLUME 99 fl (80-97); MONOCYTES % (AUTO) 5.4 % (3-13); PLATELET COUNT 136 10^3/uL (150-450); RED BLOOD COUNT 3.09 10^6/uL (3.72-5.28); RED CELL DISTRIBUTION WIDTH 11.7 % (11.5-14.0); SEGMENTED NEUTROPHILS % (AUTO) 83.7 % (42-78); TOTAL CELLS COUNTED % (AUTO) 100 %; WHITE BLOOD COUNT 6.3 10^3/uL (4.0-10.5)
[2017-10-01 06:26] LABS: HEMOGLOBIN 10.6 g/dL (12.0-15.5)
[2017-10-01 06:41] LABS: BLOOD UREA NITROGEN 14 mg/dL (7-20); CALCIUM 8.3 mg/dL (8.4-10.2); CHLORIDE 104 mmol/L (98-107); GLUCOSE 104 mg/dL (75-110); MAGNESIUM 1.9 mg/dL (1.6-2.3); PHOSPHORUS 3.4 mg/dL (2.5-4.5); POTASSIUM 3.9 mmol/L (3.6-5.0)
[2017-10-01 07:03] LABS: CARBON DIOXIDE 29 mmol/L (22-30); SODIUM 137.3 mmol/L (137-145)
[2017-10-01 07:07] LABS: ANION GAP 4 (5-19)
--- NOTE | 2017-10-01 08:45 | PDOC PROGRESS REPORT ---
Subjective Progress Note for:: 10/01/17 Reason For Visit: RIGHT FEMORAL NECK FRACTURE 72-year-old white female with metastatic breast carcinoma postop day 1 from right proximal femoral hemiarthroplasty secondary to femoral neck fracture. No indication for metastatic involvement. Physical Exam Vital Signs: Temp Pulse Resp BP Pulse Ox 37.3 C 115 H 18 107/37 L 93 10/01/17 07:46 10/01/17 07:46 10/01/17 07:46 10/01/17 07:46 10/01/17 07:46 Intake & Output 09/30/17 10/01/17 10/02/17 06:59 06:59 06:59 Intake Total 4520 Output Total 1450 Balance 3070 Weight 70.1 kg General appearance: PRESENT: no acute distress Head exam: PRESENT: normocephalic Respiratory exam: PRESENT: unlabored Cardiovascular exam: PRESENT: RRR Pulses: PRESENT: +1 pedal pulses bilateral Vascular exam: PRESENT: normal capillary refill GI/Abdominal exam: PRESENT: soft Rectal exam: PRESENT: deferred Extremities exam: PRESENT: other - Right hip dressing is clean dry and intact. Leg lengths are equal. Distal neurovascular examination is intact. Neurological exam: PRESENT: alert, awake, oriented to person, oriented to place , oriented to time, oriented to situation. ABSENT: motor sensory deficit Psychiatric exam: PRESENT: appropriate affect, normal mood. ABSENT: homicidal ideation, suicidal ideation Skin exam: PRESENT: dry, intact, warm. ABSENT: cyanosis, rash Results Laboratory Results: 10/01/17 05:30 10/01/17 05:30 10/01/17 10/01/17 05:30 05:30 WBC 6.3 RBC 3.09 L Hgb 10.6 L D Hct 30.6 L MCV 99 H MCH 34.4 H MCHC 34.7 RDW 11.7 Plt Count 136 L Seg Neutrophils % 83.7 H Lymphocytes % 9.8 L Monocytes % 5.4 Eosinophils % 0.9 Basophils % 0.2 Absolute Neutrophils 5.2 Absolute Lymphocytes 0.6 Absolute Monocytes 0.3 Absolute Eosinophils 0.1 Absolute Basophils 0.0 Sodium 137.3 Potassium 3.9 Chloride 104 Carbon Dioxide 29 Anion Gap 4 L BUN 14 Creatinine 0.53 Est GFR ( Amer) > 60 Est GFR (Non-Af Amer) > 60 Glucose 104 Calcium 8.3 L Phosphorus 3.4 Magnesium 1.9 Impressions: Abdomen Ultrasound 09/30/17 00:00 IMPRESSION: LIMITED STUDY. NO SIGNIFICANT FINDING IN THE VISUALIZED ABDOMEN. Hip/Pelvis X-Ray 09/30/17 02:28 IMPRESSION: 1. Acute mildly displaced subcapital fracture of the right femoral neck. Wrist X-Ray 09/30/17 02:28 IMPRESSION: 1. Acute minimally displaced fracture of the distal right radial metaphysis. Chest X-Ray 09/30/17 02:38 IMPRESSION: 1. No acute pulmonary process identified. Head CT 09/30/17 02:38 IMPRESSION: 1. No acute intracranial abnormality by CT criteria. This exam was performed according to our departmental dose-optimization program, which includes automated exposure control, adjustment of the mA and/or kV according to patient size and/or use of iterative reconstruction technique. Pelvis X-Ray 09/30/17 11:16 IMPRESSION: SATISFACTORY POSTOPERATIVE PELVIS. Status: Imported from PACS Assessment & Plan - Diagnosis (1) Closed right hip fracture Qualifiers: Encounter type: initial encounter Qualified Code(s): S72.001A - Fracture of unspecified part of neck of right femur, initial encounter for closed fracture Is this a current diagnosis for this admission?: Yes Plan: Postop day 1 right hemiarthroplasty. Patient will be mobilized with physical therapy and weightbearing as tolerated basis. Patient will need a platform walker because of the right distal radius fracture. Postoperative hematocrit is 30.7. (2) Distal radius fracture, right Qualifiers: Encounter type: initial encounter Fracture type: closed Fracture morphology: unspecified fracture morphology Qualified Code(s): S52.501A - Unspecified fracture of the lower end of right radius, initial encounter for closed fracture Is this a current diagnosis for this admission?: Yes Plan: Stable
[2017-10-01] MEDS: PRENATAL VITAMIN W DHA CAPSULE PO SCH (09:59)
[2017-10-01] MEDS: PANTOPRAZOLE SODIUM 40 MG VIAL IV SCH ×2 (10:00→21:18)
[2017-10-01] MEDS: OXYCODONE HCL SR 10 MG TABLET PO SCH ×2 (10:00→21:18)
[2017-10-01] MEDS: DOCUSATE SODIUM 100 MG CAPSULE PO SCH (10:00)
[2017-10-01] MEDS: SENNOSIDES/DOCUSATE 8.6-50 MG 1 EACH TABLET PO SCH ×2 (10:00→17:44)
--- NOTE | 2017-10-01 11:35 | PDOC PROGRESS REPORT ---
Subjective Progress Note for:: 10/01/17 Subjective:: 72-year-old female with past medical history of R Breast cancer TIA Parkinson's disease She presented to the hospital after sustaining a fall at home when she got up around midnight to that her dog out of the house. When she turned around the room was spinning and she fell on her right side to Floor which was tiled. She sustained pain in her right hip and wrist and was found to have fractures of both the right wrist and the right hip. CT of the head was negative. Chest x-ray was within normal limits. EKG was within normal limits. Post op day 1 from right proximal femoral hemiarthroplasty secondary to femoral neck fracture. No indication for metastatic involvement per orthopedic surgery. No complaints at present pain is reasonably well controlled. Reason For Visit: RIGHT FEMORAL NECK FRACTURE Physical Exam Vital Signs: Temp Pulse Resp BP Pulse Ox 99.2 F 115 H 18 107/37 L 93 10/01/17 07:46 10/01/17 07:46 10/01/17 07:46 10/01/17 07:46 10/01/17 07:46 Intake & Output 09/30/17 10/01/17 10/02/17 06:59 06:59 06:59 Intake Total 4520 Output Total 1450 Balance 3070 Weight 70.1 kg Additional comments: Elderly female lying in bed not in acute distress Lungs: Clear to auscultation bilaterally, normal respiratory effort Cardiac: S1-S2 regular, no cyanosis no thrills palpable no murmurs heard no JVD Abdomen: Soft, no focal tenderness normal bowel sounds Skin: Warm and dry R upper extremity in sling. Results Laboratory Results: 10/01/17 05:30 10/01/17 05:30 10/01/17 10/01/17 05:30 05:30 WBC 6.3 RBC 3.09 L Hgb 10.6 L D Hct 30.6 L MCV 99 H MCH 34.4 H MCHC 34.7 RDW 11.7 Plt Count 136 L Seg Neutrophils % 83.7 H Lymphocytes % 9.8 L Monocytes % 5.4 Eosinophils % 0.9 Basophils % 0.2 Absolute Neutrophils 5.2 Absolute Lymphocytes 0.6 Absolute Monocytes 0.3 Absolute Eosinophils 0.1 Absolute Basophils 0.0 Sodium 137.3 Potassium 3.9 Chloride 104 Carbon Dioxide 29 Anion Gap 4 L BUN 14 Creatinine 0.53 Est GFR ( Amer) > 60 Est GFR (Non-Af Amer) > 60 Glucose 104 Calcium 8.3 L Phosphorus 3.4 Magnesium 1.9 Impressions: Abdomen Ultrasound 09/30/17 00:00 IMPRESSION: LIMITED STUDY. NO SIGNIFICANT FINDING IN THE VISUALIZED ABDOMEN. Hip/Pelvis X-Ray 09/30/17 02:28 IMPRESSION: 1. Acute mildly displaced subcapital fracture of the right femoral neck. Wrist X-Ray 09/30/17 02:28 IMPRESSION: 1. Acute minimally displaced fracture of the distal right radial metaphysis. Chest X-Ray 09/30/17 02:38 IMPRESSION: 1. No acute pulmonary process identified. Head CT 09/30/17 02:38 IMPRESSION: 1. No acute intracranial abnormality by CT criteria. This exam was performed according to our departmental dose-optimization program, which includes automated exposure control, adjustment of the mA and/or kV according to patient size and/or use of iterative reconstruction technique. Pelvis X-Ray 09/30/17 11:16 IMPRESSION: SATISFACTORY POSTOPERATIVE PELVIS. Assessment & Plan - Diagnosis (1) Closed right hip fracture Qualifiers: Encounter type: initial encounter Qualified Code(s): S72.001A - Fracture of unspecified part of neck of right femur, initial encounter for closed fracture Is this a current diagnosis for this admission?: Yes Plan: Management per Orthopedic surgery Continue analgesics for pain management. (2) Distal radius fracture, right Qualifiers: Encounter type: initial encounter Fracture type: closed Fracture morphology: unspecified fracture morphology Qualified Code(s): S52.501A - Unspecified fracture of the lower end of right radius, initial encounter for closed fracture Is this a current diagnosis for this admission?: Yes Plan: Splint was placed in the ED. Continue pain management. Orthopedic evaluation appreciated (3) Abdominal pain Qualifiers: Abdominal location: lower abdomen, unspecified Qualified Code(s): R10.30 - Lower abdominal pain, unspecified Is this a current diagnosis for this admission?: No (4) Fall Qualifiers: Encounter type: initial encounter Qualified Code(s): W19.XXXA - Unspecified fall, initial encounter Is this a current diagnosis for this admission?: Yes Plan: Could have been secondary to orthostasis as a result of her Parkinson's disease. Fall precautions and PT as tolerated. (5) Insomnia Is this a current diagnosis for this admission?: Yes Plan: Trazodone and gabapentin. (6) Parkinson disease Is this a current diagnosis for this admission?: Yes Plan: Continue Sinemet (7) Breast CA Is this a current diagnosis for this admission?: No Plan: Outpatient follow up - Time Time Spent with patient: 25-34 minutes
[2017-10-01] MEDS: ASPIRIN 81 MG TABLET, ENT COATED PO SCH (12:47)
[2017-10-01] MEDS: HYDROMORPHONE HCL INJ/PF 2 MG/ML AMPULE IV PRN (12:47)
[2017-10-01] MEDS: RINGERS SOLUTION,LACTATED 1,000 ML IV PRN ×2 (12:53→19:39)
[2017-10-01] MEDS: GABAPENTIN 300 MG CAPSULE PO SCH ×2 (21:15→21:18)
[2017-10-01] MEDS: TRAZODONE HCL 50 MG TABLET PO SCH (21:18)
[2017-10-02] MEDS: LANSOPRAZOLE 30 MG TAB.RAP.DR PO SCH (05:50)
[2017-10-02] MEDS: CARBIDOPA/LEVODOPA 25-250 MG TABLET PO SCH ×4 (05:51→21:15)
[2017-10-02 06:36] LABS: ABSOLUTE EOSINOPHILS # (AUTO) 0.1 10^3/uL (0.0-0.6); ABSOLUTE LYMPHOCYTES (AUTO) 0.6 10^3/uL (0.5-4.7); ABSOLUTE MONOCYTES (AUTO) 0.5 10^3/uL (0.1-1.4); ABSOLUTE NEUT (AUTO) 6.3 10^3/uL (1.7-8.2); BASOPHILS % (AUTO) 0.2 % (0-2); EOSINOPHILS % (AUTO) 1.3 % (0-6); HEMOGLOBIN 10.1 g/dL (12.0-15.5); LYMPHOCYTES % (AUTO) 7.5 % (13-45); MEAN CORPUSCULAR HEMOGLOBIN 34.1 pg (27.0-33.4); MEAN CORPUSCULAR HGB CONC 34.8 g/dL (32.0-36.0); MEAN CORPUSCULAR VOLUME 98 fl (80-97); MONOCYTES % (AUTO) 6.2 % (3-13); PLATELET COUNT 126 10^3/uL (150-450); RED BLOOD COUNT 2.96 10^6/uL (3.72-5.28); RED CELL DISTRIBUTION WIDTH 12.1 % (11.5-14.0); SEGMENTED NEUTROPHILS % (AUTO) 84.8 % (42-78); TOTAL CELLS COUNTED % (AUTO) 100 %; WHITE BLOOD COUNT 7.5 10^3/uL (4.0-10.5)
[2017-10-02 07:05] LABS: ANION GAP 5 (5-19); BLOOD UREA NITROGEN 6 mg/dL (7-20); CALCIUM 8.3 mg/dL (8.4-10.2); CARBON DIOXIDE 30 mmol/L (22-30); CHLORIDE 104 mmol/L (98-107); GLUCOSE 113 mg/dL (75-110); MAGNESIUM 1.8 mg/dL (1.6-2.3); POTASSIUM 3.7 mmol/L (3.6-5.0); SODIUM 138.5 mmol/L (137-145)
[2017-10-02] MEDS: RINGERS SOLUTION,LACTATED 1,000 ML IV PRN (08:44)
[2017-10-02] MEDS: SENNOSIDES/DOCUSATE 8.6-50 MG 1 EACH TABLET PO SCH ×2 (10:55→17:53)
[2017-10-02] MEDS: DOCUSATE SODIUM 100 MG CAPSULE PO SCH (10:55)
[2017-10-02] MEDS: PRENATAL VITAMIN W DHA CAPSULE PO SCH (10:55)
[2017-10-02] MEDS: OXYCODONE HCL SR 10 MG TABLET PO SCH (10:55)
[2017-10-02] MEDS: PANTOPRAZOLE SODIUM 40 MG VIAL IV SCH ×2 (10:56→21:15)
[2017-10-02] MEDS: ASPIRIN 81 MG TABLET, ENT COATED PO SCH (14:09)
[2017-10-02] MEDS: ONDANSETRON HCL INJ/PF 4 MG/2 ML SDV IV PRN (14:10)
--- NOTE | 2017-10-02 14:30 | PDOC PROGRESS REPORT ---
Subjective Progress Note for:: 10/02/17 Subjective:: Patient is complaining of fatigue and pain in the hip No shortness of breath no fever no chills She is alert and awake She does have a bed in rehab and will be transferred tomorrow Reason For Visit: RIGHT FEMORAL NECK FRACTURE Physical Exam Vital Signs: Temp Pulse Resp BP Pulse Ox 98.8 F 101 H 18 117/53 L 90 L 10/02/17 10:48 10/02/17 10:48 10/02/17 10:48 10/02/17 10:48 10/02/17 10:48 Intake & Output 10/01/17 10/02/17 10/03/17 00:59 00:59 00:59 Intake Total 3600 7256 1230 Output Total 1550 1000 Balance 2050 6256 1230 Weight 64.5 kg 70.1 kg General appearance: PRESENT: no acute distress, well-developed, well-nourished Eye exam: PRESENT: conjunctiva pink, EOMI, PERRLA. ABSENT: scleral icterus Neck exam: ABSENT: carotid bruit, JVD, lymphadenopathy, thyromegaly Respiratory exam: PRESENT: clear to auscultation nakul. ABSENT: rales, rhonchi, wheezes Pulses: PRESENT: normal dorsalis pedis pul GI/Abdominal exam: PRESENT: normal bowel sounds, soft. ABSENT: distended, guarding, mass, organolmegaly, rebound, tenderness Extremities exam: ABSENT: calf tenderness, joint swelling Neurological exam: PRESENT: alert Results Laboratory Results: 10/02/17 06:00 10/02/17 06:00 10/02/17 10/02/17 06:00 06:00 WBC 7.5 RBC 2.96 L Hgb 10.1 L Hct 29.0 L MCV 98 H MCH 34.1 H MCHC 34.8 RDW 12.1 Plt Count 126 L Seg Neutrophils % 84.8 H Lymphocytes % 7.5 L Monocytes % 6.2 Eosinophils % 1.3 Basophils % 0.2 Absolute Neutrophils 6.3 Absolute Lymphocytes 0.6 Absolute Monocytes 0.5 Absolute Eosinophils 0.1 Absolute Basophils 0.0 Sodium 138.5 Potassium 3.7 Chloride 104 Carbon Dioxide 30 Anion Gap 5 BUN 6 L Creatinine 0.47 L Est GFR ( Amer) > 60 Est GFR (Non-Af Amer) > 60 Glucose 113 H Calcium 8.3 L Magnesium 1.8 Impressions: Abdomen Ultrasound 09/30/17 00:00 IMPRESSION: LIMITED STUDY. NO SIGNIFICANT FINDING IN THE VISUALIZED ABDOMEN. Hip/Pelvis X-Ray 09/30/17 02:28 IMPRESSION: 1. Acute mildly displaced subcapital fracture of the right femoral neck. Wrist X-Ray 09/30/17 02:28 IMPRESSION: 1. Acute minimally displaced fracture of the distal right radial metaphysis. Chest X-Ray 09/30/17 02:38 IMPRESSION: 1. No acute pulmonary process identified. Head CT 09/30/17 02:38 IMPRESSION: 1. No acute intracranial abnormality by CT criteria. This exam was performed according to our departmental dose-optimization program, which includes automated exposure control, adjustment of the mA and/or kV according to patient size and/or use of iterative reconstruction technique. Pelvis X-Ray 09/30/17 11:16 IMPRESSION: SATISFACTORY POSTOPERATIVE PELVIS. Assessment & Plan - Diagnosis (1) Closed right hip fracture Qualifiers: Encounter type: initial encounter Qualified Code(s): S72.001A - Fracture of unspecified part of neck of right femur, initial encounter for closed fracture Is this a current diagnosis for this admission?: Yes (2) Distal radius fracture, right Qualifiers: Encounter type: initial encounter Fracture type: closed Fracture morphology: unspecified fracture morphology Qualified Code(s): S52.501A - Unspecified fracture of the lower end of right radius, initial encounter for closed fracture Is this a current diagnosis for this admission?: Yes (3) Fall Qualifiers: Encounter type: initial encounter Qualified Code(s): W19.XXXA - Unspecified fall, initial encounter Is this a current diagnosis for this admission?: Yes (4) Parkinson disease Is this a current diagnosis for this admission?: Yes Plan: Continue present management Transferred to short-term rehab in [facility]
[2017-10-02] MEDS: HYDROMORPHONE HCL INJ/PF 2 MG/ML AMPULE IV PRN (18:16)
[2017-10-02] MEDS: OXYCODONE HCL IR 5 MG TABLET PO PRN (21:10)
[2017-10-02] MEDS: GABAPENTIN 300 MG CAPSULE PO SCH ×2 (21:15)
[2017-10-02] MEDS: TRAZODONE HCL 50 MG TABLET PO SCH (21:15)
[2017-10-03] MEDS: HYDROMORPHONE HCL INJ/PF 2 MG/ML AMPULE IV PRN (01:21)
[2017-10-03] MEDS: LANSOPRAZOLE 30 MG TAB.RAP.DR PO SCH (05:43)
[2017-10-03] MEDS: ONDANSETRON HCL INJ/PF 4 MG/2 ML SDV IV PRN (05:43)
[2017-10-03] MEDS: CARBIDOPA/LEVODOPA 25-250 MG TABLET PO SCH ×3 (05:43→17:37)
[2017-10-03 06:11] LABS: ABSOLUTE EOSINOPHILS # (AUTO) 0.1 10^3/uL (0.0-0.6); ABSOLUTE LYMPHOCYTES (AUTO) 0.6 10^3/uL (0.5-4.7); ABSOLUTE MONOCYTES (AUTO) 0.3 10^3/uL (0.1-1.4); ABSOLUTE NEUT (AUTO) 4.2 10^3/uL (1.7-8.2); BASOPHILS % (AUTO) 0.2 % (0-2); EOSINOPHILS % (AUTO) 2.4 % (0-6); HEMATOCRIT 26.9 % (36.0-47.0); HEMOGLOBIN 9.5 g/dL (12.0-15.5); LYMPHOCYTES % (AUTO) 11.8 % (13-45); MEAN CORPUSCULAR HEMOGLOBIN 34.3 pg (27.0-33.4); MEAN CORPUSCULAR HGB CONC 35.2 g/dL (32.0-36.0); MEAN CORPUSCULAR VOLUME 98 fl (80-97); MONOCYTES % (AUTO) 6.2 % (3-13); PLATELET COUNT 136 10^3/uL (150-450); RED BLOOD COUNT 2.75 10^6/uL (3.72-5.28); RED CELL DISTRIBUTION WIDTH 11.8 % (11.5-14.0); SEGMENTED NEUTROPHILS % (AUTO) 79.4 % (42-78); TOTAL CELLS COUNTED % (AUTO) 100 %; WHITE BLOOD COUNT 5.3 10^3/uL (4.0-10.5)
[2017-10-03 06:27] LABS: BLOOD UREA NITROGEN 6 mg/dL (7-20); CHLORIDE 106 mmol/L (98-107); GLUCOSE 86 mg/dL (75-110); MAGNESIUM 1.7 mg/dL (1.6-2.3); POTASSIUM 3.4 mmol/L (3.6-5.0)
[2017-10-03 06:39] LABS: CARBON DIOXIDE 33 mmol/L (22-30); SODIUM 140.1 mmol/L (137-145)
[2017-10-03 06:41] LABS: ANION GAP 1 (5-19)
[2017-10-03] MEDS: SENNOSIDES/DOCUSATE 8.6-50 MG 1 EACH TABLET PO SCH ×2 (09:15→17:37)
[2017-10-03] MEDS: OXYCODONE HCL IR 5 MG TABLET PO PRN ×2 (09:15→17:43)
[2017-10-03] MEDS: DOCUSATE SODIUM 100 MG CAPSULE PO SCH (09:15)
[2017-10-03] MEDS: PRENATAL VITAMIN W DHA CAPSULE PO SCH (09:15)
[2017-10-03] MEDS: PANTOPRAZOLE SODIUM 40 MG VIAL IV SCH (09:20)
[2017-10-03] MEDS: ASPIRIN 81 MG TABLET, ENT COATED PO SCH (13:24)
[2017-10-03] MEDS ORDERED: POTASSIUM CHLORIDE 10 MEQ TABLET.SA PO ONE (15:55)
--- NOTE | 2017-10-03 16:02 | PDOC PROGRESS REPORT ---
Subjective Progress Note for:: 10/03/17 Subjective:: The patient is a 72-year-old white female who is postoperative day #3 status post right proximal femoral hemiarthroplasty secondary to a femoral neck fracture. She also sustained a humeral fracture on the right arm. The patient has underlying breast cancer. According to the surgery notes there is no indication at this time of metastatic involvement. Patient did well today with physical therapy. She is without any specific complaints. Reason For Visit: RIGHT FEMORAL NECK FRACTURE Physical Exam Vital Signs: Temp Pulse Resp BP Pulse Ox 98.7 F 103 H 18 124/54 L 91 L 10/03/17 12:00 10/03/17 14:00 10/03/17 12:00 10/03/17 12:00 10/03/17 12:00 Intake & Output 10/02/17 10/03/17 10/04/17 06:59 06:59 06:59 Intake Total 6366 2797 Output Total 600 Balance 5766 2797 Weight 72.3 kg Additional comments: The patient is a very pleasant female. She is not in any distress. Her cognition appears to be intact. Her facial appearance is unremarkable. Her lungs are clear bilaterally. Her cardiac exam is regular without murmurs, gallops or rubs. The abdomen is soft. Bowel sounds are present in all 4 quadrants. She does not have guarding or rebound noted and there are no hernias or masses present. The patient has warmth feet without significant edema. The skin is warm dry and intact without lesions or rashes. The right arm is wrapped in a semi-soft cast with an Joshua bandage. Results Laboratory Results: 10/03/17 05:55 10/03/17 05:55 10/03/17 10/03/17 05:55 05:55 WBC 5.3 RBC 2.75 L Hgb 9.5 L Hct 26.9 L MCV 98 H MCH 34.3 H MCHC 35.2 RDW 11.8 Plt Count 136 L Seg Neutrophils % 79.4 H Lymphocytes % 11.8 L Monocytes % 6.2 Eosinophils % 2.4 Basophils % 0.2 Absolute Neutrophils 4.2 Absolute Lymphocytes 0.6 Absolute Monocytes 0.3 Absolute Eosinophils 0.1 Absolute Basophils 0.0 Sodium 140.1 Potassium 3.4 L Chloride 106 Carbon Dioxide 33 H Anion Gap 1 L BUN 6 L Creatinine 0.43 L Est GFR ( Amer) > 60 Est GFR (Non-Af Amer) > 60 Glucose 86 Calcium 8.0 L Magnesium 1.7 Impressions: Abdomen Ultrasound 09/30/17 00:00 IMPRESSION: LIMITED STUDY. NO SIGNIFICANT FINDING IN THE VISUALIZED ABDOMEN. Hip/Pelvis X-Ray 09/30/17 02:28 IMPRESSION: 1. Acute mildly displaced subcapital fracture of the right femoral neck. Wrist X-Ray 09/30/17 02:28 IMPRESSION: 1. Acute minimally displaced fracture of the distal right radial metaphysis. Chest X-Ray 09/30/17 02:38 IMPRESSION: 1. No acute pulmonary process identified. Head CT 09/30/17 02:38 IMPRESSION: 1. No acute intracranial abnormality by CT criteria. This exam was performed according to our departmental dose-optimization program, which includes automated exposure control, adjustment of the mA and/or kV according to patient size and/or use of iterative reconstruction technique. Pelvis X-Ray 09/30/17 11:16 IMPRESSION: SATISFACTORY POSTOPERATIVE PELVIS. Assessment & Plan - Diagnosis (1) Closed right hip fracture Qualifiers: Encounter type: initial encounter Qualified Code(s): S72.001A - Fracture of unspecified part of neck of right femur, initial encounter for closed fracture Is this a current diagnosis for this admission?: Yes (2) Distal radius fracture, right Qualifiers: Encounter type: initial encounter Fracture type: closed Fracture morphology: unspecified fracture morphology Qualified Code(s): S52.501A - Unspecified fracture of the lower end of right radius, initial encounter for closed fracture Is this a current diagnosis for this admission?: Yes (3) Fall Qualifiers: Encounter type: initial encounter Qualified Code(s): W19.XXXA - Unspecified fall, initial encounter Is this a current diagnosis for this admission?: Yes (4) Parkinson disease Is this a current diagnosis for this admission?: Yes (5) Breast CA Is this a current diagnosis for this admission?: No - Time Time Spent with patient: 15-24 minutes - Inpatient Certification Medical Necessity: Need for Pain Control - Plan Summary Plan Summary: The patient appears to be doing well. I have stopped her IV fluids. We will continue her medications for pain control. She will continue on her medications for Parkinson's. I anticipate discharge in the morning.
[2017-10-03] MEDS: TRAZODONE HCL 50 MG TABLET PO SCH (22:17)
[2017-10-03] MEDS: GABAPENTIN 300 MG CAPSULE PO SCH ×2 (22:17)
[2017-10-04] MEDS: CARBIDOPA/LEVODOPA 25-250 MG TABLET PO SCH ×3 (00:06→12:16)
[2017-10-04] MEDS: LANSOPRAZOLE 30 MG TAB.RAP.DR PO SCH (05:44)
--- NOTE | 2017-10-04 09:10 | PDOC PROGRESS REPORT ---
Subjective Progress Note for:: 10/04/17 Reason For Visit: RIGHT FEMORAL NECK FRACTURE 72-year-old white female postop day 4 from right proximal femoral hemiarthroplasty for femoral neck fracture. Uneventful postoperative course. Physical Exam Vital Signs: Temp Pulse Resp BP Pulse Ox 37.0 C 96 16 129/59 H 96 10/04/17 08:28 10/04/17 08:28 10/04/17 08:28 10/04/17 08:28 10/04/17 08:28 Intake & Output 10/03/17 10/04/17 10/05/17 06:59 06:59 06:59 Intake Total 2797 1346 Balance 2797 1346 Weight 72.3 kg 67.9 kg General appearance: PRESENT: no acute distress Extremities exam: PRESENT: other - Right hip dressing remains clean dry and intact. Leg lengths are equal. Distal neurovascular examination is intact. Results Laboratory Results: 10/03/17 05:55 10/03/17 05:55 Impressions: Abdomen Ultrasound 09/30/17 00:00 IMPRESSION: LIMITED STUDY. NO SIGNIFICANT FINDING IN THE VISUALIZED ABDOMEN. Hip/Pelvis X-Ray 09/30/17 02:28 IMPRESSION: 1. Acute mildly displaced subcapital fracture of the right femoral neck. Wrist X-Ray 09/30/17 02:28 IMPRESSION: 1. Acute minimally displaced fracture of the distal right radial metaphysis. Chest X-Ray 09/30/17 02:38 IMPRESSION: 1. No acute pulmonary process identified. Head CT 09/30/17 02:38 IMPRESSION: 1. No acute intracranial abnormality by CT criteria. This exam was performed according to our departmental dose-optimization program, which includes automated exposure control, adjustment of the mA and/or kV according to patient size and/or use of iterative reconstruction technique. Pelvis X-Ray 09/30/17 11:16 IMPRESSION: SATISFACTORY POSTOPERATIVE PELVIS. Status: Imported from PACS Assessment & Plan - Diagnosis (1) Closed right hip fracture Qualifiers: Encounter type: initial encounter Qualified Code(s): S72.001A - Fracture of unspecified part of neck of right femur, initial encounter for closed fracture Is this a current diagnosis for this admission?: Yes Plan: Patient to be discharged to a custodial facility on a weightbearing as tolerated basis. Follow-up with Dr. Win in the [facility] for surgery in approximately 10-14 days for staple removal. (2) Distal radius fracture, right Qualifiers: Encounter type: initial encounter Fracture type: closed Fracture morphology: unspecified fracture morphology Qualified Code(s): S52.501A - Unspecified fracture of the lower end of right radius, initial encounter for closed fracture Is this a current diagnosis for this admission?: Yes Plan: At the time of the patient's clinic appointment the right lower extremity splint will be removed and a cast applied - Time Time Spent with patient: 15-24 minutes Anticipated discharge: SNF Within: when bed available
[2017-10-04] MEDS: SENNOSIDES/DOCUSATE 8.6-50 MG 1 EACH TABLET PO SCH (09:47)
[2017-10-04] MEDS: DOCUSATE SODIUM 100 MG CAPSULE PO SCH (09:48)
[2017-10-04] MEDS: PRENATAL VITAMIN W DHA CAPSULE PO SCH (09:48)
[2017-10-04] MEDS: OXYCODONE HCL IR 5 MG TABLET PO PRN ×2 (10:28→16:32)
[2017-10-04] MEDS ORDERED: METHYL SALICYLATE/MENTHOL BALM 29 GM TP PRN (10:29)
--- NOTE | 2017-10-04 11:50 | PDOC DISCHARGE SUMMARY ---
General - Admit/Disc Date/PCP Admission Date/Primary Care Provider: 09/30/17 04:54 Discharge Date: 10/04/17 - Discharge Diagnosis (1) Closed right hip fracture Is this a current diagnosis for this admission?: Yes (2) Distal radius fracture, right Is this a current diagnosis for this admission?: Yes (3) Fall Is this a current diagnosis for this admission?: Yes (4) Parkinson disease Is this a current diagnosis for this admission?: Yes (5) Breast CA Is this a current diagnosis for this admission?: No - Additional Information Resuscitation Status: Full Code Discharge Diet: Regular Discharge Activity: Supervised Activity Prescriptions: Aspirin [Ecotrin 81 mg EC Tablet] 81 mg PO Q24H 30 Days #30 tabec Oxycodone HCl [Oxy-Ir 5 mg Tablet] 5 mg PO Q6HP PRN 7 Days #20 tablet PRN Reason: Home Medications: Carbidopa/Levodopa [Sinemet 25-250 mg Tablet] 1 tab PO Q6 09/30/17 Gabapentin [Neurontin 300 mg Capsule] 300 mg PO QHS 09/30/17 Tramadol HCl/Acetaminophen [Ultracet 37.5 mg/325 mg Tablet] 1 tab PO Q8HP PRN Acetaminophen [Tylenol 325 mg Tablet] 650 mg PO Q4HP PRN tablet 10/04/17 Aspirin [Ecotrin 81 mg EC Tablet] 81 mg PO Q24H 30 Days #30 tabec 10/04/17 Docusate Sodium [Colace 100 mg Capsule] 100 mg PO DAILY capsule 10/04/17 Mag Hydrox/Al Hydrox/Simeth [Maalox Plus Susp 30 Udcup] 30 ml PO Q6HP PRN udc 10/04/17 Methyl Salicylate/Menthol [Demarco-Silveira Analgesic [place] 29 gm] 1 applic TP PRN PRN tube 10/04/17 Oxycodone HCl [Oxy-Ir 5 mg Tablet] 5 mg PO Q6HP PRN 7 Days #20 tablet 10/04/17 Sennosides/Docusate 8.6-50 mg [Senna Plus Tablet] 1 each PO BID tablet History of Present Illness History of Present Illness: JANETH MIRANDA is a 72 year old female with a past medical history of right breast cancer, TIA and Parkinson's disease presenting to the ED following a fall at her home. Patient got up around midnight to let her dog out of the house. Patient states she was just about to go to bed when the dog wanted to go out. She was able to let the dog out however when the dog was coming back in she fell. She went to turn around and the room was spinning and would not stop. She fell on her right side on the floor. She fell on a tiled floor. Patient did have a rolling walker nearby but did not think to sit down in it when became dizzy. Patient also hurt her right wrist. Patient was able to scoot back to her chair and pull herself up and sit in the chair. Patient went to call her daughter. Her daughter then called EMS. EMS came to evaluate the patient stated that her hip was not broken. They went as far as to stand patient up however patient was unable to move her right leg. Patient was brought to the ED for further evaluation. Patient reports having some right lower quadrant discomfort when he gets closer time for her to take her Sinemet. Otherwise patient states she has been feeling well. Patient denies any chest pain or shortness of breath with activity. Patient has never had a stress test before. Patient denies any history of MIs. Patient did have a TIA patient states that was about a year ago. Presentation to the ED patient was noted to have a right wrist and right hip fracture on x-ray. Patient CT head was negative and chest x-ray was negative. EKG was normal. Hospital Course Hospital Course: The patient presented after an acute fall at home. She suffered a right hip fracture and right distal radius fracture. The patient underwent right proximal Demerol hemiarthroplasty on 09/30/2017. Her wrist fracture is being treated nonoperatively with a splint. She has had an unremarkable postoperative course. She will be discharged today to a senior living facility for rehabilitation. DVT prophylaxis is aspirin. The patient did not have evidence of metastatic involvement from her breast cancer. She will be continued on her routine Parkinson's medications. She will be given a short course of opiates for pain management. Incentive spirometry will be continued upon discharge. Physical Exam Vital Signs: Temp Pulse Resp BP Pulse Ox 98.6 F 96 16 129/59 H 96 10/04/17 08:28 10/04/17 08:28 10/04/17 08:28 10/04/17 08:28 02/14/18 08:28 Intake & Output 10/03/17 10/04/17 10/05/17 06:59 06:59 06:59 Intake Total 2797 1346 Balance 2797 1346 Weight 72.3 kg 67.9 kg Additional comments: Patient is in good spirits this morning. She has no complaints except for some slight back pain. She states that she worked hard with physical therapy yesterday and she is in more pain today. Her lungs are clear to auscultation bilaterally. Her cardiac exam is regular without murmurs, gallops or rubs. The abdomen is soft and flat. Bowel sounds are present in the lower quadrants. The lower extremities are warm to touch. No pitting edema is present. The patient's surgical site on the right hip is clean dry and intact without any excessive bleeding. The right arm remains in a soft cast. Results Laboratory Results: 10/03/17 05:55 10/03/17 05:55 Impressions: Abdomen Ultrasound 09/30/17 00:00 IMPRESSION: LIMITED STUDY. NO SIGNIFICANT FINDING IN THE VISUALIZED ABDOMEN. Hip/Pelvis X-Ray 09/30/17 02:28 IMPRESSION: 1. Acute mildly displaced subcapital fracture of the right femoral neck. Wrist X-Ray 09/30/17 02:28 IMPRESSION: 1. Acute minimally displaced fracture of the distal right radial metaphysis. Chest X-Ray 09/30/17 02:38 IMPRESSION: 1. No acute pulmonary process identified. Head CT 09/30/17 02:38 IMPRESSION: 1. No acute intracranial abnormality by CT criteria. This exam was performed according to our departmental dose-optimization program, which includes automated exposure control, adjustment of the mA and/or kV according to patient size and/or use of iterative reconstruction technique. Pelvis X-Ray 09/30/17 11:16 IMPRESSION: SATISFACTORY POSTOPERATIVE PELVIS. Plan Discharge Plan: 1. Discharge to senior living facility today 2. Follow-up with Dr. Win in 10 days at the [facility] surgery for suture removal Time Spent: Less than 30 Minutes
[2017-10-04] MEDS: ASPIRIN 81 MG TABLET, ENT COATED PO SCH (12:16)
[2017-10-04 13:02] VITALS: BP 139/70
== END 2017-10-04 16:47 | DRG 470 ==
LOC: ER 02:20 → EH 04:54 → UNDOADMIN 04:54 → 4S 14:12
PROVIDERS: ADMIT Pediatrics; ATTEND Pediatrics
PROC: 2W38X1Z Immobilization of Right Upper Extremity using Splint (ICD-10-PCS; 2017-09-30)
PROC: 0SRR01Z Replacement of Right Hip Joint, Femoral Surface with Metal Synthetic Substitute, Open Approach (ICD-10-PCS; principal; 2017-09-30 08:30)
DX: S72.011A Unspecified intracapsular fracture of right femur, initial encounter for closed fracture (principal); S52.591A Other fractures of lower end of right radius, initial encounter for closed fracture; S00.81XA Abrasion of other part of head, initial encounter; G20 Parkinson's disease; M19.90 Unspecified osteoarthritis, unspecified site; W18.30XA Fall on same level, unspecified, initial encounter; Y92.009 Unspecified place in unspecified non-institutional (private) residence as the place of occurrence of the external cause; E78.00 Pure hypercholesterolemia, unspecified; R10.30 Lower abdominal pain, unspecified; E78.5 Hyperlipidemia, unspecified; G47.00 Insomnia, unspecified; Z86.73 Personal history of transient ischemic attack (TIA), and cerebral infarction without residual deficits; Z85.3 Personal history of malignant neoplasm of breast; Z92.21 Personal history of antineoplastic chemotherapy; Z92.3 Personal history of irradiation
CPT/HCPCS: 01210; 36415; 36591; 70450; 71045; 72170; 76700; 80048; 80053; 81001; 82550; 82553; 83735; 84100; 84484; 85025; 93005; 93010; 94799; 96374; 96375; 99285; C9290; G8978-GP; G8979-GP; G8987-GO; G8988-GO; G8989-GO; J0690; J1170; J1200; J1642; J1885; J2250; J2405; J2704; J3010; J3360; J3370; J3490; J7120; S0164

== ENCOUNTER 2018-01-15 12:24 | Observation (INO) | payer MEDICARE, OTHER ==
--- NOTE | 2018-01-15 13:00 | ER Document Report ---
ED Dizziness/Weakness - General Chief Complaint: Syncope Stated Complaint: POSSIBLE SYNCOPE Time Seen by Provider: 01/15/18 12:29 Mode of Arrival: Stretcher Information source: Patient, Relative Notes: Chief complaint: Syncope History of complain:( obtained from----patient) 72 years old female with a history of frequent syncope, today in the closet when she was trying to reach out for a box passed out she do not remember what happened after that. The family states that she was out for about 5 minutes by the time EMS arrived she came around. No fall apparently she slid down. No injuries. Currently has no headache focal weakness numbness tingling sensation. Denies any constitutional symptoms. Denies any injury to the upper limbs or lower limbs. Onset: Sudden Duration: 5 minutes Severity: Mild to moderate Quality: Not applicable Context: Reaching out for an object about head Exacerbating factor and relieving factors: Not applicable REVIEW OF SYSTEMS: CONSTITUTIONAL : Denies fever, chills, or sweats. Denies recent illness. EENT: Denies eye, ear, throat, or mouth pain or symptoms. Denies nasal or sinus congestion or discharge. Denies throat, tongue, or mouth swelling or difficulty swallowing. CARDIOVASCULAR: Denies chest pain. Denies palpitations or racing or irregular heart beat. Denies ankle edema. RESPIRATORY: Denies cough, cold, or chest congestion. Denies shortness of breath, difficulty breathing, or wheezing. GASTROINTESTINAL: Denies distention. Denies nausea, vomiting, or diarrhea. Denies blood in vomitus, stools, or per rectum. Denies black, tarry stools. Denies constipation. GENITOURINARY: Denies difficulty urinating, painful urination, burning, frequency, blood in urine, or discharge. FEMALE GENITOURINARY: Denies vaginal bleeding, heavy or abnormal periods, irregular periods. Denies vaginal discharge or odor. MUSCULOSKELETAL: Denies back or neck pain or stiffness. Denies joint pain or swelling. SKIN: Denies rash, lesions or sores. HEMATOLOGIC : Denies easy bruising or bleeding. LYMPHATIC: Denies swollen, enlarged glands. NEUROLOGICAL: Denies confusion or altered mental status. Denies passing out or loss of consciousness. Denies dizziness or lightheadedness. Denies headache. Denies weakness or paralysis or loss of use of either side. Denies problems with gait or speech. Denies sensory loss, numbness, or tingling. Denies seizures. PSYCHIATRIC: Denies anxiety or stress. Denies depression, suicidal ideation, or homicidal ideation. ALL OTHER SYSTEMS REVIEWED AND NEGATIVE. PHYSICAL EXAMINATION: GENERAL: Well-appearing, well-nourished and in no acute distress. Pleasant female HEAD: Atraumatic, normocephalic. EYES: Pupils equal round and reactive to light, extraocular movements intact, conjunctiva are normal. ENT: Nares patent, oropharynx clear without exudates. Moist mucous membranes. NECK: Normal range of motion, supple without lymphadenopathy LUNGS: Breath sounds clear to auscultation bilaterally and equal. No wheezes rales or rhonchi. HEART: Regular rate and rhythm without murmurs ABDOMEN: Soft, nontender, nondistended abdomen. No guarding, no rebound. No masses appreciated. Examination of genitals-deferred Musculoskeletal: Normal range of motion, no pitting or edema. No cyanosis. NEUROLOGICAL: Cranial nerves grossly intact. Normal speech, normal gait. Normal sensory, motor exams. No pronator drift no focal neurological deficit. PSYCH: Normal mood, normal affect. SKIN: Warm, Dry, normal turgor, no rashes or lesions noted. Dictation was performed using [employer] voice recognition software TRAVEL OUTSIDE OF THE [place] IN LAST 30 DAYS: No - HPI Severity: Moderate Notes: Dictated - Related Data Allergies/Adverse Reactions: No Known Allergies Allergy (Unverified 06/19/15 10:58) Past Medical History - General Information source: Patient - Social History Smoking Status: Never Smoker Cigarette use (# per day): No Chew tobacco use (# tins/day): No Frequency of alcohol use: None Lives with: Family Family History: Reviewed & Not Pertinent - Past Medical History Cardiac Medical History: Reports: Hx Hypercholesterolemia Denies: Hx Heart Attack, Hx Hypertension Pulmonary Medical History: Reports: Hx Bronchitis - hx of, Hx Pneumonia - hx of Denies: Hx Asthma - sinuses, Hx COPD Neurological Medical History: Reports: Hx Cerebrovascular Accident - Multiple TIAs. Denies: Hx Seizures Renal/ Medical History: Denies: Hx Peritoneal Dialysis Malignancy Medical History: Reports: Hx Breast Cancer Musculoskeltal Medical History: Reports Hx Arthritis Past Surgical History: Reports: Hx Breast Surgery - Right lumpectomy, Other - Port-A-Cath - Immunizations Hx Diphtheria, Pertussis, Tetanus Vaccination: No Review of Systems - Review of Systems Notes: Dictated Physical Exam - Vital signs Vitals: Resp BP Pulse Ox 22 H 113/71 99 01/15/18 12:36 01/15/18 12:36 01/15/18 12:36 - Notes Notes: Dictated Course - Re-evaluation Re-evalutation: 01/15/18 16:05 Case discussed with hospitalist to admit patient to the hospital. - Vital Signs Vital signs: Temp Pulse Resp BP Pulse Ox 18 104/62 99 01/15/18 13:02 01/15/18 13:02 01/15/18 13:02 - Laboratory Result Diagrams: 01/15/18 13:20 01/15/18 13:20 Laboratory results interpreted by me: 01/15/18 01/15/18 01/15/18 13:20 13:20 15:00 Seg Neutrophils % 78.1 H Lymphocytes % 11.9 L Sodium 145.7 H BUN 22 H Urine Protein 30 H Urine Ketones TRACE H Ur Leukocyte Esterase LARGE H - Diagnostic Test Radiology reviewed: Reports reviewed - CT report reviewed - EKG Interpretation by Me EKG shows normal: Sinus rhythm Rate: Normal Rhythm: NSR - Sinus rhythm at the rate of 88 bpm normal axis no acute ST elevation ST depression T-wave inversion noted. Discharge - Discharge Clinical Impression: Vertebral artery compression syndrome Syncope Qualifiers: Syncope type: unspecified Qualified Code(s): R55 - Syncope and collapse Condition: Fair Disposition: ADMITTED INPATIENT Admitting Provider: Hospitalist Unit Admitted: Medical Floor
[2018-01-15 13:32] LABS: ABSOLUTE EOSINOPHILS # (AUTO) 0.1 10^3/uL (0.0-0.6); ABSOLUTE LYMPHOCYTES (AUTO) 0.6 10^3/uL (0.5-4.7); ABSOLUTE MONOCYTES (AUTO) 0.4 10^3/uL (0.1-1.4); ABSOLUTE NEUT (AUTO) 4.1 10^3/uL (1.7-8.2); BASOPHILS % (AUTO) 0.4 % (0-2); EOSINOPHILS % (AUTO) 2.6 % (0-6); HEMOGLOBIN 13.2 g/dL (12.0-15.5); LYMPHOCYTES % (AUTO) 11.9 % (13-45); MEAN CORPUSCULAR HGB CONC 34.9 g/dL (32.0-36.0); MEAN CORPUSCULAR VOLUME 95 fl (80-97); PLATELET COUNT 220 10^3/uL (150-450); RED BLOOD COUNT 4.01 10^6/uL (3.72-5.28); RED CELL DISTRIBUTION WIDTH 12.3 % (11.5-14.0); SEGMENTED NEUTROPHILS % (AUTO) 78.1 % (42-78); TOTAL CELLS COUNTED % (AUTO) 100 %; WHITE BLOOD COUNT 5.2 10^3/uL (4.0-10.5)
[2018-01-15 13:49] LABS: ALANINE AMINOTRANSFERASE 16 U/L (9-52); ALBUMIN 3.7 g/dL (3.5-5.0); ALKALINE PHOSPHATASE 61 U/L (38-126); ANION GAP 9 (5-19); ASPARTATE AMINO TRANSFERASE 18 U/L (14-36); BILIRUBIN,DIRECT 0.3 mg/dL (0.0-0.4); BILIRUBIN,TOTAL 0.6 mg/dL (0.2-1.3); BLOOD UREA NITROGEN 22 mg/dL (7-20); CALCIUM 9.6 mg/dL (8.4-10.2); CARBON DIOXIDE 30 mmol/L (22-30); CHLORIDE 107 mmol/L (98-107); GLUCOSE 99 mg/dL (75-110); POTASSIUM 4.3 mmol/L (3.6-5.0); SODIUM 145.7 mmol/L (137-145); TOTAL PROTEIN 6.4 g/dL (6.3-8.2)
[2018-01-15 13:50] LABS: ALCOHOL < 10 mg/dL (NONE DETECTED)
--- NOTE | 2018-01-15 13:59 | RADIOLOGY REPORT (SQ) ---
EXAM DESCRIPTION: CT HEAD WITHOUT COMPLETED DATE/TIME: 01/15/2018 1:44 pm REASON FOR STUDY: Syncope COMPARISON: 09/30/2017 TECHNIQUE: Axial images acquired through the brain without intravenous contrast. Images reviewed wi th bone, brain and subdural windows. Additional sagittal and coronal reconstructions were generated. Images stored on PACS. All CT scanners at this facility use dose modulation, iterative reconstruction, and/or weight based d osing when appropriate to reduce radiation dose to as low as reasonably achievable (ALARA). [facility]: Dose Right [facility]: CareDose [facility]: Dose Right [facility]: Teradose 4D [facility]: Smart 1010data RADIATION DOSE: CT Rad equipment meets quality standard of care and radiation dose reduction techniq ues were employed. CTDIvol: 53.2 mGy. DLP: 1017 mGy-cm. mGy. LIMITATIONS: None. FINDINGS: VENTRICLES: Normal size and contour. CEREBRUM: Mild cortical atrophy. No masses. No hemorrhage. No midline shift. Limited area of ence phalomalacia in the right frontal lobe. No interval change PA No evidence for acute infarction. Few scattered areas of low density in the white matter most likely chronic small vessel ischemic changes. CEREBELLUM: No masses. No hemorrhage. No alteration of density. No evidence for acute infarction. EXTRAAXIAL SPACES: No fluid collections. No masses. ORBITS AND GLOBE: No intra- or extraconal masses. Normal contour of globe without masses. CALVARIUM: No fracture. PARANASAL SINUSES: No fluid or mucosal thickening. SOFT TISSUES: No mass or hematoma. OTHER: No other significant finding. IMPRESSION: MILD CHRONIC MICROVASCULAR ISCHEMIA. NO ACUTE IMAGING FINDINGS IN THE BRAIN. EVIDENCE OF ACUTE STROKE: NO. COMMENT: Quality ID # [id number]: Final reports with documentation of one or more dose reduction techniques (e.g., Automated exposure control, adjustment of the mA and/or kV according to patient size, use of iterative reconstruction technique) TECHNICAL DOCUMENTATION: JOB ID: [id number] [employer]- All Rights Reserved Reading location - IP/workstation name: [email or web address]
[2018-01-15 15:21] LABS: APPEARANCE,URINE CLOUDY; BILIRUBIN,URINE NEGATIVE (NEGATIVE); COLOR,URINE AMBER; GLUCOSE, URINE NEGATIVE (NEGATIVE); KETONES,URINE TRACE mg/dL (NEGATIVE); LEUKOCYTE ESTERASE,URINE LARGE (NEGATIVE); NITRITE,URINE NEGATIVE (NEGATIVE); PROTEIN,URINE 30 mg/dL (NEGATIVE); URINE SPECIFIC GRAVITY 1.018; UROBILINOGEN,URINE NEGATIVE mg/dL (<2.0)
[2018-01-15 15:37] LABS: URINE AMPHETAMINES SCREEN NEGATIVE; URINE BARBITURATES SCREEN NEGATIVE; URINE BENZODIAZEPINES SCREEN NEGATIVE; URINE COCAINE SCREEN NEGATIVE; URINE MARIJUANA (THC) SCREEN NEGATIVE; URINE METHADONE SCREEN NEGATIVE; URINE PHENCYCLIDINE SCREEN NEGATIVE
--- NOTE | 2018-01-15 16:30 | EKG REPORT ---
SEVERITY:- BORDERLINE ECG - SINUS RHYTHM BORDERLINE INFERIOR Q WAVES : Confirmed by: Shaista Steen 15-Jan-2018 16:30:02
[2018-01-15] MEDS ORDERED: ACETAMINOPHEN 325 MG TABLET PO PRN (16:36)
[2018-01-15] MEDS ORDERED: PROMETHAZINE HCL 25 MG TABLET PO PRN (16:36)
--- NOTE | 2018-01-15 16:57 | PDOC H&P ---
History of Present Illness Admission Date/PCP: 01/15/18 16:15 NO LOCALMD History of Present Illness: JANETH MIRANDA is a 72 year old female with a past medical history of Parkinson's disease, hyperlipidemia and history of breast cancer brought by EMS with chief complaint of syncope. Per her daughter, the patient was trying to get a box from her close it at which time she felt dizzy and become unresponsive for about 10 minutes. There is no fall or injury to her head. Patient claims she had had 2 similar attacks in the past while she is sitting on commode. There is no prodrome of nausea, vomiting, blurring of vision, diaphoresis or palpitation. No history of clammy or cold extremity. Patient denied any history of rhythm disorder or cardiac disease. Patient is partially independent for her ADLs. No fever, chills, chest pain or diarrhea. She denies incontinence of bowel or bladder at the time of attack. Past Medical History Cardiac Medical History: Reports: Hyperlipidema Denies: Myocardial Infarction, Hypertension Pulmonary Medical History: Reports: Bronchitis - hx of, Pneumonia - hx of Denies: Asthma - sinuses, Chronic Obstructive Pulmonary Disease (COPD) Neurological Medical History: Denies: Seizures Malignancy Medical History: Reports: Breast Cancer Musculoskeltal Medical History: Reports: Arthritis Hematology: Denies: Anemia Past Surgical History Past Surgical History: Reports: Other - Port-A-Cath Social History Lives with: Family Smoking Status: Never Smoker Frequency of Alcohol Use: None Hx Recreational Drug Use: No Drugs: None Hx Prescription Drug Abuse: No Family History Family History: None, Reviewed & Not Pertinent Parental Family History Reviewed: Yes Children Family History Reviewed: Yes Sibling(s) Family History Reviewed.: Yes Medication/Allergy Home Medications: Carbidopa/Levodopa [Sinemet 25-250 mg Tablet] 1 tab PO Q6 09/30/17 Gabapentin [Neurontin 300 mg Capsule] 300 mg PO QHS 09/30/17 Acetaminophen [Tylenol 325 mg Tablet] 650 mg PO Q4HP PRN tablet 10/04/17 Aspirin [Ecotrin 81 mg EC Tablet] 81 mg PO Q24H 30 Days #30 tabec 10/04/17 Docusate Sodium [Colace 100 mg Capsule] 100 mg PO DAILY capsule 10/04/17 Mag Hydrox/Al Hydrox/Simeth [Maalox Plus Susp 30 Udcup] 30 ml PO Q6HP PRN udc 10/04/17 Methyl Salicylate/Menthol [Demarco-Silveira Analgesic [place] 29 gm] 1 applic TP PRN PRN tube 10/04/17 Oxycodone HCl [Oxy-Ir 5 mg Tablet] 5 mg PO Q6HP PRN 7 Days #20 tablet 10/04/17 Sennosides/Docusate 8.6-50 mg [Senna Plus Tablet] 1 each PO BID tablet Tramadol HCl/Acetaminophen [Ultracet 37.5 mg/325 mg Tablet] 1 tab PO Q8HP PRN 5 Days #14 tablet 10/04/17 Allergies/Adverse Reactions: No Known Allergies Allergy (Unverified 06/19/15 10:58) Review of Systems Constitutional: ABSENT: chills, fever(s), headache(s), weight gain, weight loss Eyes: PRESENT: as per HPI Cardiovascular: PRESENT: as per HPI Respiratory: ABSENT: cough, hemoptysis Genitourinary: ABSENT: dysuria, hematuria Neurological: PRESENT: as per HPI Psychiatric: PRESENT: as per HPI Physical Exam Vital Signs: Temp Pulse Resp BP Pulse Ox 18 104/62 99 01/15/18 13:02 01/15/18 13:02 01/15/18 13:02 General appearance: PRESENT: no acute distress Head exam: PRESENT: atraumatic, normocephalic Eye exam: PRESENT: conjunctiva pink, EOMI, PERRLA. ABSENT: scleral icterus Neck exam: ABSENT: carotid bruit, JVD, lymphadenopathy, thyromegaly Respiratory exam: PRESENT: clear to auscultation nakul. ABSENT: rales, rhonchi, wheezes Cardiovascular exam: PRESENT: RRR. ABSENT: diastolic murmur, rubs, systolic murmur GI/Abdominal exam: PRESENT: normal bowel sounds, soft. ABSENT: distended, guarding, mass, organolmegaly, rebound, tenderness Extremities exam: PRESENT: full ROM. ABSENT: calf tenderness, clubbing, pedal edema Neurological exam: PRESENT: alert, awake, oriented to time Psychiatric exam: PRESENT: appropriate affect, normal mood. ABSENT: homicidal ideation, suicidal ideation Results Impressions: Head CT 01/15/18 12:59 IMPRESSION: MILD CHRONIC MICROVASCULAR ISCHEMIA. NO ACUTE IMAGING FINDINGS IN THE BRAIN. EVIDENCE OF ACUTE STROKE: NO. Assessment & Plan - Diagnosis (1) Recurrent syncope Is this a current diagnosis for this admission?: Yes Plan: Patient admitted to telemetry floor for observation. Cardiac Doppler, echo and MRI of the brain requested. Continuous cardiac monitoring. (2) UTI (urinary tract infection) Qualifiers: Indwelling urinary catheter type: unspecified Is this a current diagnosis for this admission?: Yes Plan: Patient has been started on ceftriaxone. (3) Hyperlipidemia Qualifiers: Hyperlipidemia type: unspecified Qualified Code(s): E78.5 - Hyperlipidemia , unspecified Is this a current diagnosis for this admission?: Yes Plan: Continue her statin (4) Parkinson disease Is this a current diagnosis for this admission?: Yes Plan: We will continue her home Sinemet
[2018-01-15] MEDS ORDERED: CEFTRIAXONE 1 GM/D5W RTU 1 GM/50 ML RTUPB IV ONE ×2 (18:00→21:02)
[2018-01-15] MEDS: CARBIDOPA/LEVODOPA 25-250 MG TABLET PO SCH (21:21)
[2018-01-16] MEDS: CARBIDOPA/LEVODOPA 25-250 MG TABLET PO SCH ×3 (01:59→12:33)
[2018-01-16] MEDS ORDERED: LANSOPRAZOLE 30 MG TAB.RAP.DR PO SCH (06:00)
[2018-01-16 06:32] LABS: HEMATOCRIT 36.6 % (36.0-47.0); HEMOGLOBIN 12.8 g/dL (12.0-15.5); MEAN CORPUSCULAR HEMOGLOBIN 33.1 pg (27.0-33.4); MEAN CORPUSCULAR HGB CONC 34.9 g/dL (32.0-36.0); MEAN CORPUSCULAR VOLUME 95 fl (80-97); PLATELET COUNT 230 10^3/uL (150-450); RED BLOOD COUNT 3.86 10^6/uL (3.72-5.28); RED CELL DISTRIBUTION WIDTH 12.4 % (11.5-14.0); WHITE BLOOD COUNT 3.9 10^3/uL (4.0-10.5)
[2018-01-16 07:05] LABS: ANION GAP 10 (5-19); BLOOD UREA NITROGEN 19 mg/dL (7-20); CALCIUM 9.2 mg/dL (8.4-10.2); CARBON DIOXIDE 30 mmol/L (22-30); CHLORIDE 105 mmol/L (98-107); GLUCOSE 116 mg/dL (75-110); POTASSIUM 3.5 mmol/L (3.6-5.0); SODIUM 145.1 mmol/L (137-145)
--- NOTE | 2018-01-16 09:00 | RADIOLOGY REPORT (SQ) ---
EXAM DESCRIPTION: MRI HEAD COMBO COMPLETED DATE/TIME: 01/16/2018 8:23 am REASON FOR STUDY: Recurrent syncope COMPARISON: CT brain 01/15/2018, 09/30/2017 MRI brain 06/20/2014 TECHNIQUE: Multiplanar imaging includes noncontrasted T1, T2, FLAIR, diffusion with ADC map and post gadolinium contrast T1 sequences. Images stored on PACS. CONTRAST TYPE AND DOSE: 10 developmental mL Multihance. RENAL FUNCTION: GFR > 60. LIMITATIONS: None. FINDINGS: ANATOMY: No anomalies. Normal vascular flow voids. Pituitary fossa normal. CSF SPACES: Normal in size and contour. No hemorrhage. CEREBRUM: No MRI evidence of acute ischemic change, acute intracranial hemorrhage, mass effect, or mi dline shift. There is an old right frontal cortical and subcortical white matter infarct unchanged since 2013. Mi nimal spotty increased FLAIR/ T2 signal in the hemispheric white matter from minimal small vessel isc hemic change, age-appropriate. POSTERIOR FOSSA: No signal alteration. No hemorrhage. No edema, masses, or mass effect. Internal kevin tory canals, cerebellopontine angles, mastoids normal. No enhancing lesions. No abnormal enhancement post contrast. DIFFUSION IMAGING: Negative for acute or subacute infarction. ORBITS: No masses. Globes normal. PARANASAL SINUSES: No fluid levels. Mucosa normal. OTHER: No other significant finding. IMPRESSION: No acute findings. 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 Ag e-appropriate minimal small vessel ischemic change in the hemispheric white matter. EVIDENCE OF ACUTE STROKE: NO. TECHNICAL DOCUMENTATION: JOB ID: [id number] [employer]- All Rights Reserved Reading location - IP/workstation name: [facility]
[2018-01-16] MEDS ORDERED: ENOXAPARIN SODIUM INJ 40 MG/0.4 ML DISP.SYRIN SUBCUT SCH (10:00)
[2018-01-16] MEDS ORDERED: CEFTRIAXONE SODIUM 1,000 MG in DEXTROSE 5%-WATER 50 ML IV SCH (10:00)
[2018-01-16] MEDS ORDERED: CEFTRIAXONE 1 GM/D5W RTU 1 GM/50 ML RTUPB IV SCH (10:00)
--- NOTE | 2018-01-16 10:09 | RADIOLOGY REPORT (SQ) ---
EXAM DESCRIPTION: CAROTID DOPPLER COMPLETED DATE/TIME: 01/16/2018 9:33 am REASON FOR STUDY: Recurrent syncope COMPARISON: MRI brain 01/16/2018 CT brain 01/15/2018 Carotid Doppler 07/01/2014 TECHNIQUE: Grayscale ultrasound, Doppler velocity and spectra, and color Doppler images acquired of the extra-cranial carotid and vertebral arteries. Images stored on PACS. LIMITATIONS: None. FINDINGS: RIGHT CAROTID CCA Velocities: Within normal limits. ICA Velocities Peak systolic 0.75 m/s. End diastolic 0.20 m/s. Proximal ICA/CCA peak systolic ratio 1.08. Spectra normal. No significant plaque. LEFT CAROTID CCA Velocities: Within normal limits. ICA Velocities Peak systolic 0.55 m/s. End diastolic 0.15 m/s. Proximal ICA/CCA peak systolic ratio 0.7. Spectra normal. No significant plaque. VERTEBRAL ARTERIES: Antegrade flow. Normal waveforms. SUBCLAVIAN ARTERIES: Not evaluated OTHER: No other significant finding. IMPRESSION: NO HEMODYNAMICALLY SIGNIFICANT STENOSIS. COMMENT: Quality ID #[id number]: Velocity criteria are extrapolated from the diameter data as defined by t he Society of Radiologists in Ultrasound Consensus Conference. Radiology 2003: 229; 340-346. TECHNICAL DOCUMENTATION: JOB ID: [id number] [employer]- All Rights Reserved Reading location - IP/workstation name: [facility] BEDS AT THE [facility]
--- NOTE | 2018-01-16 10:56 | PDOC DISCHARGE SUMMARY ---
General - Admit/Disc Date/PCP Admission Date/Primary Care Provider: 01/15/18 16:15 NO LOCALMD Discharge Date: 01/16/18 - Discharge Diagnosis (1) Recurrent syncope Is this a current diagnosis for this admission?: Yes (2) UTI (urinary tract infection) Is this a current diagnosis for this admission?: Yes (3) Hyperlipidemia Is this a current diagnosis for this admission?: Yes (4) Parkinson disease Is this a current diagnosis for this admission?: Yes - Additional Information Resuscitation Status: Full Code Discharge Diet: Regular Discharge Activity: Activity As Tolerated Prescriptions: Atorvastatin Calcium [Lipitor 40 mg Tablet] 40 mg PO QHS #30 tablet Home Medications: Carbidopa/Levodopa [Sinemet 25-250 mg Tablet] 1 tab PO Q6 09/30/17 Gabapentin [Neurontin 300 mg Capsule] 300 mg PO QHS 09/30/17 Acetaminophen [Tylenol 325 mg Tablet] 650 mg PO Q4HP PRN tablet 10/04/17 Aspirin [Ecotrin 81 mg EC Tablet] 81 mg PO Q24H 30 Days #30 tabec 10/04/17 Docusate Sodium [Colace 100 mg Capsule] 100 mg PO DAILY capsule 10/04/17 Mag Hydrox/Al Hydrox/Simeth [Maalox Plus Susp 30 Udcup] 30 ml PO Q6HP PRN udc 10/04/17 Methyl Salicylate/Menthol [Demarco-Silveira Analgesic Buckland 29 gm] 1 applic TP PRN PRN tube 10/04/17 Oxycodone HCl [Oxy-Ir 5 mg Tablet] 5 mg PO Q6HP PRN 7 Days #20 tablet 10/04/17 Sennosides/Docusate 8.6-50 mg [Senna Plus Tablet] 1 each PO BID tablet Tramadol HCl/Acetaminophen [Ultracet 37.5 mg/325 mg Tablet] 1 tab PO Q8HP PRN 5 Days #14 tablet 10/04/17 Atorvastatin Calcium [Lipitor 40 mg Tablet] 40 mg PO QHS #30 tablet 01/16/18 History of Present Illness History of Present Illness: JANETH MIRANDA is a 72 year old female with a past medical history of Parkinson's disease, hyperlipidemia and history of breast cancer brought by EMS with chief complaint of syncope. Per her daughter, the patient was trying to get a box from her close it at which time she felt dizzy and become unresponsive for about 10 minutes. There is no fall or injury to her head. Patient claims she had had 2 similar attacks in the past while she is sitting on commode. There is no prodrome of nausea, vomiting, blurring of vision, diaphoresis or palpitation. No history of clammy or cold extremity. Patient denied any history of rhythm disorder or cardiac disease. Patient is partially independent for her ADLs. No fever, chills, chest pain or diarrhea. She denies incontinence of bowel or bladder at the time of attack. Hospital Course Hospital Course: This is a 72 years old female patient admitted with history of unresponsiveness patient has also prior similar episodes due to recurrent syncope. CT head, MRI of the brain and bilateral carotid carotid Doppler studies are unremarkable. During this current admission patient also found to have UTI for which she is on ceftriaxone. This morning I seen patient while she is resting on recliner. She is awake alert oriented. She is not in pain or any form of acute cardiorespiratory distress. Her vital signs are within normal limits and patient is stable enough to be discharged and follow-up with her primary care physician. Patient discharged with Lipitor 40 mg p.o. nightly and Levaquin 500 mg p.o. daily for 5 days. Physical Exam Vital Signs: Temp Pulse Resp BP Pulse Ox 98.2 F 94 14 128/63 H 99 01/16/18 08:02 01/16/18 08:02 01/16/18 08:02 01/16/18 08:02 01/16/18 08:02 Intake & Output 01/15/18 01/16/18 01/17/18 06:59 06:59 06:59 Weight 140.4 kg General appearance: PRESENT: no acute distress, well-developed, well-nourished Head exam: PRESENT: atraumatic, normocephalic Ear exam: PRESENT: normal external ear exam Neck exam: ABSENT: carotid bruit, JVD, lymphadenopathy, thyromegaly Respiratory exam: PRESENT: clear to auscultation nakul. ABSENT: rales, rhonchi, wheezes Cardiovascular exam: PRESENT: RRR. ABSENT: diastolic murmur, rubs, systolic murmur GI/Abdominal exam: PRESENT: normal bowel sounds, soft. ABSENT: distended, guarding, mass, organolmegaly, rebound, tenderness Neurological exam: PRESENT: alert, awake, oriented to person, oriented to place , oriented to time, oriented to situation, CN II-XII grossly intact. ABSENT: motor sensory deficit Psychiatric exam: PRESENT: appropriate affect, normal mood. ABSENT: homicidal ideation, suicidal ideation Results Laboratory Results: 01/16/18 06:15 01/16/18 06:15 01/16/18 01/16/18 01/16/18 06:15 06:15 06:15 WBC 3.9 L RBC 3.86 Hgb 12.8 Hct 36.6 MCV 95 MCH 33.1 MCHC 34.9 RDW 12.4 Plt Count 230 Sodium 145.1 H Potassium 3.5 L Chloride 105 Carbon Dioxide 30 Anion Gap 10 BUN 19 Creatinine 0.49 L Est GFR ( Amer) > 60 Est GFR (Non-Af Amer) > 60 Glucose 116 H Calcium 9.2 TSH 4.43 Impressions: Head CT 01/15/18 12:59 IMPRESSION: MILD CHRONIC MICROVASCULAR ISCHEMIA. NO ACUTE IMAGING FINDINGS IN THE BRAIN. EVIDENCE OF ACUTE STROKE: NO. Carotid Doppler Study 01/16/18 00:00 IMPRESSION: NO HEMODYNAMICALLY SIGNIFICANT STENOSIS. Head MRI 01/16/18 00:00 IMPRESSION: No acute findings. 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 Age-appropriate minimal small vessel ischemic change in the hemispheric white matter. EVIDENCE OF ACUTE STROKE: NO. Qualifiers - * PATIENT BEING DISCHARGED WITH ANY OF THE FOLLOWING DIAGNOSIS: No
--- NOTE | 2018-01-16 12:54 | XCELERA REPORT ---
[address] [address] Transthoracic Echocardiogram Report Name: JANETH MIRANDA Age: 72 yrs Gender: Female : 1945 Patient Status: Inpatient Patient Location: [address] [place] [address] Study Date: 01/16/2018 08:45 AM Height: 65 in Weight: 145 lb BSA: 1.7 m2 Procedure: A two-dimensional transthoracic echocardiogram with color flow and Doppler was performed. Study Quality: Technically suboptimal. The study was technically difficult with many images being suboptimal in quality. Reason For Study: SYNCOPE History: SYNCOPE. Ordering Physician: ALEXA PENNINGTON Performed By: Fabiana Lao Interpretation Summary The left ventricle is normal in size. There is normal left ventricular wall thickness. LV EF is > than 65% Left ventricular systolic function is normal. Doppler measurements suggest impaired left ventricular relaxation, which is associated with grade I/IV or mild diastolic dysfunction The left ventricular wall motion is normal. The right ventricle is not well visualized secondary to technical limitations The left atrial size is normal. There is no evidence of mitral valve prolapse. There is no vegetation seen on the mitral valve. There is no mitral valve stenosis. There is no mitral regurgitation noted. There is no aortic valve stenosis There is no LVOT obstruction. No aortic regurgitation is present. There is no tricuspid stenosis. There is a trace amount of tricuspid regurgitation Right ventricular systolic pressure is normal. RVSP is 29 mm of Hg , with RA mean of 5. There is no pulmonic valvular stenosis. There is no pulmonic valvular regurgitation. There is no pericardial effusion. MMode/2D Measurements & Calculations RVDd: 1.8 cm LVIDd: 3.7 cm FS: 42.2 % Ao root diam: 2.8 cm IVSd: 0.91 cm LVIDs: 2.1 cm EDV(Teich): 57.3 ml LVPWd: 0.77 cmESV(Teich): 14.9 ml Ao root area: 6.3 cm2 EF(Teich): 74.0 % LVOT diam: 1.8 cm LVOT area: 2.5 cm2 Doppler Measurements & Calculations MV E max prachi: MV dec slope: Ao V2 max: LV V1 max P.5 cm/sec 369.6 cm/sec2 139.4 cm/sec 3.8 mmHg MV A max prachi: MV dec time: Ao max PG: LV V1 max: 75.7 cm/sec 0.15 sec 7.8 mmHg 97.9 cm/sec MV E/A: 0.75 EZEKIEL(V,D): 1.7 cm2 PA V2 max: TR max prachi: 76.3 cm/sec 246.7 cm/sec PA max PG: TR max P.3 mmHg 2.3 mmHg Left Ventricle The left ventricle is normal in size. There is normal left ventricular wall thickness. LV EF is > than 65%. Left ventricular systolic function is normal. Doppler measurements suggest impaired left ventricular relaxation, which is associated with grade I/IV or mild diastolic dysfunction. The left ventricular wall motion is normal. Right Ventricle The right ventricle is not well visualized secondary to technical limitations. Atria The right atrium is normal. The left atrial size is normal. Mitral Valve There is no evidence of mitral valve prolapse. There is no vegetation seen on the mitral valve. There is no mitral valve stenosis. There is no mitral regurgitation noted. Aortic Valve There is no aortic valvular vegetation. There is no aortic valve stenosis. There is no LVOT obstruction. No aortic regurgitation is present. Tricuspid Valve There is no tricuspid stenosis. There is a trace amount of tricuspid regurgitation. Right ventricular systolic pressure is normal. RVSP is 29 mm of Hg , with RA mean of 5. Pulmonic Valve There is no pulmonic valvular stenosis. There is no pulmonic valvular regurgitation. Great Vessels The aortic root is not well visualized but is probably normal size. Effusions There is no pericardial effusion. : ALEXA PENNINGTON > Ellen Gibbs
[2018-01-16 13:39] VITALS: BP 128/63
== END 2018-01-16 14:50 | disposition home or self-care (01) ==
LOC: ER 12:24 → EH 16:15 → INTOOBSV 16:15 → 4S 18:40
PROVIDERS: ADMIT Internal Medicine; ATTEND Internal Medicine
DX: R55 Syncope and collapse (principal); N39.0 Urinary tract infection, site not specified; E78.5 Hyperlipidemia, unspecified; G20 Parkinson's disease; M19.90 Unspecified osteoarthritis, unspecified site; Z79.899 Other long term (current) drug therapy; Z85.3 Personal history of malignant neoplasm of breast; Z79.82 Long term (current) use of aspirin; Z86.73 Personal history of transient ischemic attack (TIA), and cerebral infarction without residual deficits
CPT/HCPCS: 93005; 36591; 99285; 36415; 87040; 82962; 80307 ×2; 83735; 84443; 85025; 85027; 80048; 80053; 81001; 93306; 93880; 70553; 70450; 93010; G0378 ×3; A9577; A9270 ×4; J1650; J0696 ×2; J3490

== ENCOUNTER 2018-02-27 09:50 | Emergency (ER) | payer MEDICARE, OTHER ==
[2018-02-27] MEDS ORDERED: ASPIRIN 81 MG TABLET, CHEWABLE PO ONE ×2 (10:08→12:41)
--- NOTE | 2018-02-27 10:24 | ER Document Report ---
ED General - General Chief Complaint: Syncope Stated Complaint: SYNCOPE Time Seen by Provider: 02/27/18 09:52 Mode of Arrival: Medic Information source: Patient Notes: 73-year-old female who has had multiple episodes of syncope in the past presents after another syncopal episode today. Patient was at her primary care office for checkup, notes they are taking her vitals and while standing she felt lightheaded dizzy heart rate dropped to 23 blood pressure went to 80s over 40s and patient syncopized. She denies any chest pain shortness breath difficulty breathing, TRAVEL OUTSIDE OF THE [place] IN LAST 30 DAYS: No - HPI Onset: Just prior to arrival Onset/Duration: Sudden Quality of pain: No pain Severity: Moderate Pain Level: Denies Associated symptoms: Weakness Exacerbated by: Denies Relieved by: Denies Similar symptoms previously: Yes Recently seen / treated by doctor: Yes - Related Data Allergies/Adverse Reactions: No Known Allergies Allergy (Unverified 06/19/15 10:58) Past Medical History - Social History Smoking Status: Never Smoker Cigarette use (# per day): No Chew tobacco use (# tins/day): No Smoking Education Provided: No Family History: Reviewed & Not Pertinent - Past Medical History Cardiac Medical History: Reports: Hx Hypercholesterolemia Denies: Hx Congestive Heart Failure, Hx Heart Attack, Hx Hypertension Pulmonary Medical History: Reports: Hx Bronchitis - hx of, Hx Pneumonia - hx of Denies: Hx Asthma - sinuses, Hx COPD, Hx Tuberculosis Neurological Medical History: Reports: Hx Cerebrovascular Accident - Multiple TIAs. Denies: Hx Seizures Renal/ Medical History: Denies: Hx End Stage Renal Disease, Hx Kidney Stones, Hx Peritoneal Dialysis Malignancy Medical History: Reports: Hx Breast Cancer GI Medical History: Reports: Hx Gastroesophageal Reflux Disease. Denies: Hx Cirrhosis, Hx Ulcer Musculoskeltal Medical History: Reports Hx Arthritis, Denies Hx Multiple Sclerosis Psychiatric Medical History: Denies: Hx Bipolar Disorder, Hx Depression, Hx Schizophrenia Past Surgical History: Reports: Hx Breast Surgery - Right lumpectomy, Other - Port-A-Cath - Immunizations Hx Diphtheria, Pertussis, Tetanus Vaccination: No Review of Systems - Review of Systems Notes: REVIEW OF SYSTEMS: CONSTITUTIONAL : Denies fever, chills, or sweats. Denies recent illness. EENT: Denies eye, ear, throat, or mouth pain or symptoms. Denies nasal or sinus congestion or discharge. Denies throat, tongue, or mouth swelling or difficulty swallowing. CARDIOVASCULAR: Denies chest pain. Denies palpitations or racing or irregular heart beat. Denies ankle edema. RESPIRATORY: Denies cough, cold, or chest congestion. Denies shortness of breath, difficulty breathing, or wheezing. GASTROINTESTINAL: Denies abdominal pain or distention. Denies nausea, vomiting , or diarrhea. Denies blood in vomitus, stools, or per rectum. Denies black, tarry stools. Denies constipation. GENITOURINARY: Denies difficulty urinating, painful urination, burning, frequency, blood in urine, or discharge. FEMALE GENITOURINARY: Denies vaginal bleeding, heavy or abnormal periods, irregular periods. Denies vaginal discharge or odor. MUSCULOSKELETAL: Denies back or neck pain or stiffness. Denies joint pain or swelling. SKIN: Denies rash, lesions or sores. HEMATOLOGIC : Denies easy bruising or bleeding. LYMPHATIC: Denies swollen, enlarged glands. NEUROLOGICAL: Admits to syncope PSYCHIATRIC: Denies anxiety or stress. Denies depression, suicidal ideation, or homicidal ideation. ALL OTHER SYSTEMS REVIEWED AND NEGATIVE. PHYSICAL EXAMINATION: GENERAL: Well-appearing, well-nourished and in no acute distress. HEAD: Atraumatic, normocephalic. EYES: Pupils equal round and reactive to light, extraocular movements intact, conjunctiva are normal. ENT: Nares patent, oropharynx clear without exudates. Moist mucous membranes. NECK: Normal range of motion, supple without lymphadenopathy LUNGS: Breath sounds clear to auscultation bilaterally and equal. No wheezes rales or rhonchi. HEART: Regular rate and rhythm without murmurs ABDOMEN: Soft, nontender, nondistended abdomen. No guarding, no rebound. No masses appreciated. Female : deferred Musculoskeletal: Normal range of motion, no pitting or edema. No cyanosis. NEUROLOGICAL: Cranial nerves grossly intact. Normal speech, normal gait. Normal sensory, motor exams PSYCH: Normal mood, normal affect. SKIN: Warm, Dry, normal turgor, no rashes or lesions noted. Dictation was performed using [employer] voice recognition software Physical Exam - Vital signs Vitals: Resp Pulse Ox 22 H 100 02/27/18 09:58 02/27/18 09:58 Course - Re-evaluation Re-evalutation: 02/27/18 10:24 Patient was given IV fluid bolus by EMS her blood pressure is now 119/66 02/27/18 11:14 Aubree whitman , awaiting call back 02/27/18 11:39 Dr Hu accepts transfer 02/27/18 14:01 Patient has been resting comfortably no distress - Vital Signs Vital signs: Temp Pulse Resp BP Pulse Ox 97.5 F 14 128/60 H 98 02/27/18 10:00 02/27/18 13:01 02/27/18 13:01 02/27/18 13:01 - Laboratory Result Diagrams: 02/27/18 09:22 02/27/18 09:22 Laboratory results interpreted by me: 02/27/18 02/27/18 09:22 09:22 MCH 33.7 H Sodium 146.7 H BUN 22 H Creatine Kinase 23 L Total Protein 6.1 L - Diagnostic Test Radiology reviewed: Reports reviewed - EKG Interpretation by Me EKG shows normal: Sinus rhythm, Heartwell, Intervals, QRS Complexes Discharge - Discharge Clinical Impression: Bradycardia, Syncope and collapse Condition: Stable Disposition: [facility] Referrals: LARISSA CA MD [Primary Care Provider] - Follow up as needed
[2018-02-27 10:39] LABS: ABSOLUTE EOSINOPHILS # (AUTO) 0.2 10^3/uL (0.0-0.6); ABSOLUTE LYMPHOCYTES (AUTO) 1.1 10^3/uL (0.5-4.7); ABSOLUTE MONOCYTES (AUTO) 0.3 10^3/uL (0.1-1.4); ABSOLUTE NEUT (AUTO) 3.4 10^3/uL (1.7-8.2); BASOPHILS % (AUTO) 0.8 % (0-2); HEMATOCRIT 37.6 % (36.0-47.0); HEMOGLOBIN 13.1 g/dL (12.0-15.5); MEAN CORPUSCULAR HEMOGLOBIN 33.7 pg (27.0-33.4); MEAN CORPUSCULAR HGB CONC 34.8 g/dL (32.0-36.0); MEAN CORPUSCULAR VOLUME 97 fl (80-97); MONOCYTES % (AUTO) 6.2 % (3-13); PLATELET COUNT 216 10^3/uL (150-450); RED BLOOD COUNT 3.89 10^6/uL (3.72-5.28); RED CELL DISTRIBUTION WIDTH 12.8 % (11.5-14.0); TOTAL CELLS COUNTED % (AUTO) 100 %
[2018-02-27 10:51] LABS: ALANINE AMINOTRANSFERASE 15 U/L (9-52); ALBUMIN 3.5 g/dL (3.5-5.0); ALKALINE PHOSPHATASE 60 U/L (38-126); ANION GAP 10 (5-19); ASPARTATE AMINO TRANSFERASE 19 U/L (14-36); BILIRUBIN,DIRECT 0.4 mg/dL (0.0-0.4); BILIRUBIN,TOTAL 0.9 mg/dL (0.2-1.3); BLOOD UREA NITROGEN 22 mg/dL (7-20); CARBON DIOXIDE 30 mmol/L (22-30); CHLORIDE 107 mmol/L (98-107); CREATINE KINASE 23 U/L (30-135); GLUCOSE 102 mg/dL (75-110); SODIUM 146.7 mmol/L (137-145); TOTAL PROTEIN 6.1 g/dL (6.3-8.2)
[2018-02-27 11:03] LABS: CREATINE KINASE MB < 0.22 ng/mL (<4.55); TROPONIN I < 0.012 ng/mL
--- NOTE | 2018-02-27 11:04 | RADIOLOGY REPORT (SQ) ---
EXAM DESCRIPTION: CHEST SINGLE VIEW COMPLETED DATE/TIME: 02/27/2018 10:47 am REASON FOR STUDY: All syncope COMPARISON: May 2018 EXAM PARAMETERS: NUMBER OF VIEWS: One view. TECHNIQUE: Single frontal radiographic view of the chest acquired. RADIATION DOSE: NA LIMITATIONS: None. FINDINGS: LUNGS AND PLEURA: No opacities, masses or pneumothorax. No pleural effusion. MEDIASTINUM AND HILAR STRUCTURES: No masses. Contour normal. HEART AND VASCULAR STRUCTURES: Heart normal in size. Normal vasculature. BONES: No acute findings. HARDWARE: On the left with the tip projected over the superior vena cava. OTHER: No other significant finding. IMPRESSION: NO ACUTE RADIOGRAPHIC FINDING IN THE CHEST. TECHNICAL DOCUMENTATION: JOB ID: [id number] [employer]- All Rights Reserved Reading location - IP/workstation name: [email or web address]
[2018-02-27 16:08] VITALS: BP 102/82
--- NOTE | 2018-02-27 16:35 | ER Document Report ---
Doctor's Note Notes: 02/27/18 16:34 Transport is here for the patient. Her vital signs are stable. She is sitting up in bed sipping fluids and eating a meal. At this time she does appear stable for transport.
--- NOTE | 2018-02-27 20:41 | EKG REPORT ---
SEVERITY:- NORMAL ECG - SINUS RHYTHM : Confirmed by: Ellen Gibbs MD 27-Feb-2018 20:41:13
[2018-02-28] MEDS ORDERED: ASPIRIN 81 MG TABLET, CHEWABLE PO SCH (10:00)
== END 2018-02-27 16:35 | disposition short-term general hospital (02) ==
LOC: ER 09:50
DX: R55 Syncope and collapse (principal); R00.1 Bradycardia, unspecified; R53.1 Weakness; Z86.73 Personal history of transient ischemic attack (TIA), and cerebral infarction without residual deficits; Z85.3 Personal history of malignant neoplasm of breast
CPT/HCPCS: 93005; 99285; 36415; 82553; 82550; 85025; 80053; 84484; 71045; 93010; A9270

== ENCOUNTER 2018-12-11 14:56 | Inpatient (IN) | payer MEDICARE, OTHER ==
--- NOTE | 2018-12-11 16:04 | ER Document Report ---
Entered by DANNY SCOTT SCRIBE 12/11/18 1525 Acting as scribe for:NABEEL DEL ANGEL MD ED General - General Stated Complaint: POSSIBLE SYNCOPE Time Seen by Provider: 12/11/18 15:05 Mode of Arrival: Ambulatory Notes: Patient is a 73 year old female presenting to the emergency department complaining of a syncopal episode onset just prior to arrival. Patient states she was at her doctors office when she proceeded to feel dizzy and have a syncopal episode. EMS reports a blood pressure of 100/66 upon arrival to the scene and they proceeded to administer a normal saline bolus. Patient state she currently feels a lot better. Of note, patient has a history of multiple syncopal episodes. Patient's PCP is Dr. Ramirez. The patient was here in February 2018 with a syncopal episode that occurred in the office. The notes report that she had a pulse that dropped down to 28 and a low blood pressure. There is no description of how the low pulse was verified. She was evaluated in the emergency room where her blood pressure were normal. Due to the history of the bradycardia, she was transferred to [facility] for evaluation for a pacemaker. After she was evaluated there, they decided that she did not need a pacemaker. The daughter states that her mother has been very weak recently and cannot go home. She actually was taken to the doctor's office today to be evaluated for urinary tract infection and to check her sacral- coccyx region because of pain since she sustained a fall several days ago. TRAVEL OUTSIDE OF THE [place] IN LAST 30 DAYS: No - Related Data Allergies/Adverse Reactions: No Known Allergies Allergy (Unverified 06/19/15 10:58) Past Medical History - General Information source: Patient - Social History Smoking Status: Never Smoker Cigarette use (# per day): No Chew tobacco use (# tins/day): No Smoking Education Provided: No Frequency of alcohol use: None Family History: Reviewed & Not Pertinent - Past Medical History Cardiac Medical History: Reports: Hx Hypercholesterolemia Pulmonary Medical History: Reports: Hx Bronchitis - hx of, Hx Pneumonia - hx of Neurological Medical History: Reports: Hx Cerebrovascular Accident - Multiple TIAs Malignancy Medical History: Reports: Hx Breast Cancer GI Medical History: Reports: Hx Gastroesophageal Reflux Disease Musculoskeletal Medical History: Reports Hx Arthritis Past Surgical History: Reports: Hx Breast Surgery - Right lumpectomy, Other - Port-A-Cath - Immunizations Hx Diphtheria, Pertussis, Tetanus Vaccination: No Review of Systems - Review of Systems Constitutional: No symptoms reported EENT: No symptoms reported Cardiovascular: See HPI, Syncope Respiratory: No symptoms reported Gastrointestinal: No symptoms reported Genitourinary: No symptoms reported Female Genitourinary: No symptoms reported Musculoskeletal: No symptoms reported Skin: No symptoms reported Hematologic/Lymphatic: No symptoms reported Neurological/Psychological: No symptoms reported -: Yes All other systems reviewed and negative Physical Exam - Vital signs Vitals: Pulse BP 92 134/68 H 12/11/18 15:01 12/11/18 15:01 - Notes Notes: GENERAL: Alert, interacts well. No acute distress. HEAD: Normocephalic, atraumatic. EYES: Pupils equal, round, and reactive to light. Extraocular movements intact. ENT: Oral mucosa moist, tongue midline. NECK: Full range of motion. Supple. Trachea midline. LUNGS: Clear to auscultation bilaterally, no wheezes, rales, or rhonchi. No respiratory distress. HEART: Regular rate and rhythm. No murmurs, gallops, or rubs. Blood pressure 134 on quality assurance monitor body. ABDOMEN: Soft, non-tender. Non-distended. Bowel sounds present in all 4 quadrants. No guarding, rigidity, or rebound. BACK: There is some tenderness in the region of the coccyx. EXTREMITIES: Moves all 4 extremities spontaneously. NEUROLOGICAL: Alert and oriented x3. Normal speech. PSYCH: Normal affect, normal mood. SKIN: Warm, dry, normal turgor. No rashes or lesions noted. Course - Re-evaluation Re-evalutation: 12/11/18 18:54 The patient was gotten up to her walker and tested for hemodynamic stability. Her blood pressure dropped to 78/55 and her heart rate went up to about 150. This would suggest that the patient possibly needs a tilt table test, and serum cortisol testing. - Vital Signs Vital signs: Temp Pulse Resp BP Pulse Ox 98.6 F 92 15 139/62 H 96 12/11/18 15:13 12/11/18 15:01 12/11/18 17:33 12/11/18 17:33 12/11/18 17:33 - Laboratory Result Diagrams: 12/11/18 15:05 12/11/18 15:05 Laboratory results interpreted by me: 12/11/18 12/11/18 12/11/18 15:05 15:05 16:45 Seg Neutrophils % 86.0 H Lymphocytes % 7.6 L Chloride 108 H Anion Gap 4 L Creatine Kinase 22 L Total Protein 6.1 L Urine Protein 30 H Urine Blood MODERATE H Ur Leukocyte Esterase LARGE H - Diagnostic Test Radiology reviewed: Image reviewed, Reports reviewed - Chest x-ray does not show any acute findings. Sacrum and coccyx x-ray shows a questionable acute hairline nondisplaced fracture through the coccyx seen on the lateral view. - EKG Interpretation by Me EKG shows normal: Sinus rhythm, Reedy, Intervals, QRS Complexes, ST-T Waves Rate: Normal - 94 Rhythm: NSR - Consults Dr Chacon Time consulted: 18:33 Consulted provider: other - Admit to telemetry, Dr. Moran will see the patient when he comes on duty. Discharge - Discharge Clinical Impression: Recurrent syncope, Orthostatic hypotension Syncope Qualifiers: Syncope type: unspecified Qualified Code(s): R55 - Syncope and collapse Hypotension Qualifiers: Hypotension type: unspecified hypotension type Qualified Code(s): I95.9 - Hypotension, unspecified Fractured coccyx Qualifiers: Encounter type: initial encounter Fracture type: closed Qualified Code(s): S32.2XXA - Fracture of coccyx, initial encounter for closed fracture Urinary tract infection Qualifiers: Urinary tract infection type: site unspecified Hematuria presence: with hematuria Qualified Code(s): N39.0 - Urinary tract infection, site not specified Condition: Good Disposition: ADMITTED INPATIENT Admitting Provider: Ines (Hospitalist) Unit Admitted: Telemetry Scribe Attestation: 12/11/18 15:57 I personally performed the services described in the documentation, reviewed and edited the documentation which was dictated to the scribe in my presence, and it accurately records my words and actions. I personally performed the services described in the documentation, reviewed and edited the documentation which was dictated to the scribe in my presence, and it accurately records my words and actions.
--- NOTE | 2018-12-11 16:11 | RADIOLOGY REPORT (SQ) ---
EXAM DESCRIPTION: CHEST SINGLE VIEW COMPLETED DATE/TIME: 12/11/2018 3:57 pm REASON FOR STUDY: syncope COMPARISON: 09/30/2017 NUMBER OF VIEWS: One view. TECHNIQUE: Single frontal radiographic image of the chest acquired. LIMITATIONS: None. FINDINGS: LUNGS AND PLEURA: No acute findings. MEDIASTINUM AND HILAR STRUCTURES: Normal in appearance. HEART AND VASCULAR STRUCTURES: Normal in size. No failure. SUPPORT DEVICES: [id number] remains in place. BONES: No acute findings. OTHER: No other significant finding. IMPRESSION: No acute findings in the chest. TECHNICAL DOCUMENTATION: JOB ID: [id number] [employer]- All Rights Reserved Reading location - IP/workstation name: [email or web address]
[2018-12-11 16:12] LABS: ABSOLUTE EOSINOPHILS # (AUTO) 0.1 10^3/uL (0.0-0.6); ABSOLUTE LYMPHOCYTES (AUTO) 0.6 10^3/uL (0.5-4.7); ABSOLUTE MONOCYTES (AUTO) 0.4 10^3/uL (0.1-1.4); ABSOLUTE NEUT (AUTO) 6.3 10^3/uL (1.7-8.2); BASOPHILS % (AUTO) 0.5 % (0-2); EOSINOPHILS % (AUTO) 1.1 % (0-6); HEMATOCRIT 39.4 % (36.0-47.0); HEMOGLOBIN 13.4 g/dL (12.0-15.5); LYMPHOCYTES % (AUTO) 7.6 % (13-45); MEAN CORPUSCULAR HEMOGLOBIN 32.6 pg (27.0-33.4); MEAN CORPUSCULAR HGB CONC 33.9 g/dL (32.0-36.0); MEAN CORPUSCULAR VOLUME 96 fl (80-97); MONOCYTES % (AUTO) 4.8 % (3-13); PLATELET COUNT 225 10^3/uL (150-450); RED BLOOD COUNT 4.09 10^6/uL (3.72-5.28); RED CELL DISTRIBUTION WIDTH 12.5 % (11.5-14.0); TOTAL CELLS COUNTED % (AUTO) 100 %; WHITE BLOOD COUNT 7.4 10^3/uL (4.0-10.5)
[2018-12-11 16:36] LABS: ALANINE AMINOTRANSFERASE 25 U/L (9-52); ALBUMIN 3.5 g/dL (3.5-5.0); ALKALINE PHOSPHATASE 92 U/L (38-126); ASPARTATE AMINO TRANSFERASE 15 U/L (14-36); BILIRUBIN,DIRECT 0.1 mg/dL (0.0-0.4); BILIRUBIN,TOTAL 0.5 mg/dL (0.2-1.3); BLOOD UREA NITROGEN 16 mg/dL (7-20); CALCIUM 9.3 mg/dL (8.4-10.2); CARBON DIOXIDE 29 mmol/L (22-30); CHLORIDE 108 mmol/L (98-107); CREATINE KINASE 22 U/L (30-135); GLUCOSE 110 mg/dL (75-110); TOTAL PROTEIN 6.1 g/dL (6.3-8.2)
[2018-12-11 16:49] LABS: SODIUM 141.2 mmol/L (137-145)
[2018-12-11 16:50] LABS: ANION GAP 4 (5-19)
--- NOTE | 2018-12-11 17:16 | EKG REPORT ---
SEVERITY:- NORMAL ECG - SINUS RHYTHM : Confirmed by: Jesus Manuel Sosa MD 11-Dec-2018 17:15:48
--- NOTE | 2018-12-11 17:19 | RADIOLOGY REPORT (SQ) ---
EXAM DESCRIPTION: SACRUM AND COCCYX COMPLETED DATE/TIME: 12/11/2018 5:07 pm REASON FOR STUDY: Fall, tailbone pain COMPARISON: 12/14/2015 NUMBER OF VIEWS: Three views. TECHNIQUE: AP, lateral, and tilt views of the sacrum and coccyx. LIMITATIONS: None. FINDINGS: MINERALIZATION: Osteoporotic BONES: Question acute hairline nondisplaced fracture through the coccyx on lateral view SOFT TISSUES: No soft tissue swelling. No foreign body. OTHER: No other significant finding. IMPRESSION: Question acute hairline nondisplaced fracture through the coccyx on lateral view TECHNICAL DOCUMENTATION: JOB ID: [id number] [employer]- All Rights Reserved Reading location - IP/workstation name: [email or web address]
[2018-12-11 17:35] LABS: APPEARANCE,URINE CLOUDY; BILIRUBIN,URINE NEGATIVE (NEGATIVE); CALCIUM OXALATE CRYSTALS,URINE MODERATE /HPF; COLOR,URINE YELLOW; GLUCOSE, URINE NEGATIVE (NEGATIVE); KETONES,URINE NEGATIVE (NEGATIVE); LEUKOCYTE ESTERASE,URINE LARGE (NEGATIVE); NITRITE,URINE NEGATIVE (NEGATIVE); PROTEIN,URINE 30 mg/dL (NEGATIVE); UROBILINOGEN,URINE NEGATIVE mg/dL (<2.0)
[2018-12-11] MEDS ORDERED: NORMAL SALINE 1000 ML 1,000 ML IV ONE ×2 (18:41→19:23)
[2018-12-11] MEDS ORDERED: CEFTRIAXONE 1 GM/D5W RTU 1 GM/50 ML RTUPB IV ONE (18:41)
[2018-12-11] MEDS ORDERED: MAGNESIUM HYDROXIDE SUSP 30 ML UDCUP PO PRN (19:19)
[2018-12-11] MEDS ORDERED: IPRATROPIUM/ALBUTEROL 0.5-2.5 MG/3 ML AMPUL NEB PRN (19:19)
[2018-12-11] MEDS ORDERED: ACETAMINOPHEN 325 MG TABLET PO PRN (19:19)
[2018-12-11 22:15] LABS: URINE AMPHETAMINES SCREEN NEGATIVE; URINE BARBITURATES SCREEN NEGATIVE; URINE BENZODIAZEPINES SCREEN NEGATIVE; URINE COCAINE SCREEN NEGATIVE; URINE MARIJUANA (THC) SCREEN NEGATIVE; URINE METHADONE SCREEN NEGATIVE; URINE PHENCYCLIDINE SCREEN NEGATIVE
[2018-12-11] MEDS ORDERED: SUCRALFATE 1 GM TABLET PO ONE (23:30)
[2018-12-11] MEDS: ATORVASTATIN CALCIUM 40 MG TABLET PO SCH (23:35)
[2018-12-11] MEDS: HEPARIN SOD (PORCINE) 5,000 UNIT/ML 1 ML SYRINGE SUBCUT SCH (23:36)
[2018-12-11] MEDS: GABAPENTIN 300 MG CAPSULE PO SCH (23:36)
[2018-12-11] MEDS: CARBIDOPA/LEVODOPA 25-250 MG TABLET PO SCH (23:44)
[2018-12-12] MEDS: HEPARIN SOD (PORCINE) 5,000 UNIT/ML 1 ML SYRINGE SUBCUT SCH ×4 (00:08→21:37)
[2018-12-12] MEDS: KETOROLAC TROMETHAMINE INJ/PF 30 MG/1 ML SDV IV PRN ×3 (01:39→16:15)
[2018-12-12 03:45] LABS: ABSOLUTE EOSINOPHILS # (AUTO) 0.1 10^3/uL (0.0-0.6); ABSOLUTE LYMPHOCYTES (AUTO) 0.9 10^3/uL (0.5-4.7); ABSOLUTE MONOCYTES (AUTO) 0.4 10^3/uL (0.1-1.4); ABSOLUTE NEUT (AUTO) 3.5 10^3/uL (1.7-8.2); BASOPHILS % (AUTO) 0.8 % (0-2); EOSINOPHILS % (AUTO) 2.8 % (0-6); HEMATOCRIT 36.6 % (36.0-47.0); HEMOGLOBIN 12.6 g/dL (12.0-15.5); LYMPHOCYTES % (AUTO) 17.7 % (13-45); MEAN CORPUSCULAR HEMOGLOBIN 33.3 pg (27.0-33.4); MEAN CORPUSCULAR HGB CONC 34.5 g/dL (32.0-36.0); MEAN CORPUSCULAR VOLUME 97 fl (80-97); MONOCYTES % (AUTO) 7.6 % (3-13); PLATELET COUNT 212 10^3/uL (150-450); RED BLOOD COUNT 3.79 10^6/uL (3.72-5.28); RED CELL DISTRIBUTION WIDTH 12.7 % (11.5-14.0); SEGMENTED NEUTROPHILS % (AUTO) 71.1 % (42-78); TOTAL CELLS COUNTED % (AUTO) 100 %; WHITE BLOOD COUNT 4.9 10^3/uL (4.0-10.5)
[2018-12-12 04:08] LABS: BLOOD UREA NITROGEN 15 mg/dL (7-20); CALCIUM 8.7 mg/dL (8.4-10.2); CREATINE KINASE 21 U/L (30-135); GLUCOSE 111 mg/dL (75-110); POTASSIUM 3.6 mmol/L (3.6-5.0)
[2018-12-12 04:21] LABS: CREATINE KINASE MB < 0.22 ng/mL (<4.55); TROPONIN I < 0.012 ng/mL
[2018-12-12 04:22] LABS: ANION GAP 6 (5-19); CARBON DIOXIDE 27 mmol/L (22-30); CHLORIDE 110 mmol/L (98-107); SODIUM 142.8 mmol/L (137-145)
--- NOTE | 2018-12-12 05:00 | PDOC H&P ---
History of Present Illness Admission Date/PCP: 12/11/18 18:45 RENEA ZAPATA MD Patient complains of: Syncope History of Present Illness: JANETH MIRANDA is a 73 year old female with a past medical history of Parkinson's, GERD, hypertension and recurrent urinary tract infection. Patient presents 1 hour after the onset of the episode of dizziness followed by syncope with hypotension and bradycardia occurring at her primary care physician's office. She is brought to the emergency room after receiving IV fluids feeling largely improved without headache, blurred vision, nausea vomiting but complains of sacral pain. Patient has had several near syncopal episodes some resulting in fall recently. Work-up reveals pyuria and recurrence of orthostatic hypotens ion. She received IV fluids and empiric antibiotics referred to the hospitalist for admission. She denies recent change in medications. Past Medical History Cardiac Medical History: Reports: Hyperlipidema Denies: Congestive Heart Failure, Myocardial Infarction, Hypertension Pulmonary Medical History: Reports: Bronchitis - hx of, Pneumonia - hx of Denies: Asthma - sinuses, Chronic Obstructive Pulmonary Disease (COPD), Tuberculosis Neurological Medical History: Denies: Seizures Renal/ Medical History: Denies: End Stage Renal Disease Malignancy Medical History: Reports: Breast Cancer GI Medical History: Reports: Gastroesophageal Reflux Disease Denies: Cirrhosis Musculoskeltal Medical History: Reports: Arthritis Psychiatric Medical History: Denies: Bipolar Disorder, Depression Hematology: Denies: Anemia, Bleeding Tendencies Past Surgical History Past Surgical History: Reports: Other - Port-A-Cath Social History Information Source: Patient Lives with: Family Smoking Status: Smoker,Current Status Unk Frequency of Alcohol Use: None Hx Recreational Drug Use: No Drugs: None Hx Prescription Drug Abuse: No - Advance Directive Resuscitation Status: Full Code Family History Family History: Hypertension Parental Family History Reviewed: Yes Children Family History Reviewed: Yes Sibling(s) Family History Reviewed.: Yes Medication/Allergy Home Medications: Aspirin [Ecotrin 81 mg EC Tablet] 81 mg PO DAILY 01/16/18 Atorvastatin Calcium [Lipitor 40 mg Tablet] 40 mg PO QHS #30 tablet 01/16/18 Acetaminophen [Tylenol Extra Strength 500 mg Tablet] 1 tab PO QID 12/11/18 Amantadine HCl [Amantadine] 100 mg PO Q12 12/11/18 Celecoxib [Celebrex 200 mg Capsule] 200 mg PO DAILY 12/11/18 Cetirizine HCl [Zyrtec 10 mg Tablet] 10 mg PO QHS 12/11/18 Potassium Chloride 20 meq PO DAILY 12/11/18 Sucralfate [Carafate 1 gm Tablet] 1 gm PO ACHS 12/11/18 Allergies/Adverse Reactions: No Known Allergies Allergy (Unverified 06/19/15 10:58) Review of Systems Constitutional: PRESENT: as per HPI, weakness. ABSENT: chills, fever(s), headache(s), weight gain, weight loss Eyes: ABSENT: visual disturbances Ears: ABSENT: hearing changes Cardiovascular: ABSENT: chest pain, dyspnea on exertion, edema, orthropnea, palpitations Respiratory: ABSENT: cough, hemoptysis Gastrointestinal: ABSENT: abdominal pain, constipation, diarrhea, hematemesis, hematochezia, nausea, vomiting Genitourinary: ABSENT: dysuria, hematuria Musculoskeletal: PRESENT: as per HPI, back pain, muscle weakness. ABSENT: joint swelling Integumentary: ABSENT: rash, wounds Neurological: PRESENT: as per HPI, abnormal gait, abnormal movements. ABSENT: abnormal speech, confusion, dizziness, focal weakness, syncope Psychiatric: ABSENT: anxiety, depression, homidical ideation, suicidal ideation Endocrine: ABSENT: cold intolerance, heat intolerance, polydipsia, polyuria Hematologic/Lymphatic: ABSENT: easy bleeding, easy bruising Physical Exam Vital Signs: Temp Pulse Resp BP Pulse Ox 98.6 F 105 H 18 108/49 L 98 12/12/18 04:09 12/12/18 04:09 12/11/18 23:45 12/12/18 04:09 12/12/18 04:09 Intake & Output 12/10/18 12/11/18 12/12/18 11:59 11:59 11:59 Intake Total 1050 Balance 1050 Weight 74.3 kg General appearance: PRESENT: cooperative, mild distress, well-developed, well- nourished. ABSENT: disheveled Head exam: PRESENT: atraumatic, normocephalic Eye exam: PRESENT: conjunctiva pink, EOMI, PERRLA. ABSENT: scleral icterus Ear exam: PRESENT: normal external ear exam Mouth exam: PRESENT: moist, tongue midline Neck exam: ABSENT: carotid bruit, JVD, lymphadenopathy, thyromegaly Respiratory exam: PRESENT: clear to auscultation nakul. ABSENT: rales, rhonchi, wheezes Cardiovascular exam: PRESENT: RRR. ABSENT: diastolic murmur, rubs, systolic murmur Pulses: PRESENT: normal dorsalis pedis pul Vascular exam: PRESENT: normal capillary refill GI/Abdominal exam: PRESENT: normal bowel sounds, soft. ABSENT: distended, guarding, mass, organolmegaly, rebound, tenderness Rectal exam: PRESENT: deferred Extremities exam: PRESENT: full ROM. ABSENT: calf tenderness, clubbing, pedal edema Musculoskeletal exam: PRESENT: full ROM, normal inspection. ABSENT: tenderness Neurological exam: PRESENT: alert, awake, oriented to person, oriented to place, oriented to time, oriented to situation, CN II-XII grossly intact. ABSENT: motor sensory deficit Psychiatric exam: PRESENT: appropriate affect, normal mood. ABSENT: homicidal ideation, suicidal ideation Skin exam: PRESENT: dry, intact, warm. ABSENT: cyanosis, rash Results Laboratory Results: 12/12/18 02:50 12/12/18 02:45 12/11/18 12/11/18 12/11/18 15:05 15:05 16:45 WBC 7.4 RBC 4.09 Hgb 13.4 Hct 39.4 MCV 96 MCH 32.6 MCHC 33.9 RDW 12.5 Plt Count 225 Seg Neutrophils % 86.0 H Lymphocytes % 7.6 L Monocytes % 4.8 Eosinophils % 1.1 Basophils % 0.5 Absolute Neutrophils 6.3 Absolute Lymphocytes 0.6 Absolute Monocytes 0.4 Absolute Eosinophils 0.1 Absolute Basophils 0.0 Sodium 141.2 Potassium 4.0 Chloride 108 H Carbon Dioxide 29 Anion Gap 4 L BUN 16 Creatinine 0.69 Est GFR ( Amer) > 60 Est GFR (Non-Af Amer) > 60 Glucose 110 Calcium 9.3 Magnesium Total Bilirubin 0.5 AST 15 ALT 25 Alkaline Phosphatase 92 Total Protein 6.1 L Albumin 3.5 TSH Urine Color YELLOW Urine Appearance CLOUDY Urine pH 7.0 Ur Specific [place] 1.020 Urine Protein 30 H Urine Glucose (UA) NEGATIVE Urine Ketones NEGATIVE Urine Blood MODERATE H Urine Nitrite NEGATIVE Ur Leukocyte Esterase LARGE H Urine WBC (Auto) 154 Urine RBC (Auto) 55 12/11/18 12/11/18 12/12/18 20:30 20:30 02:45 WBC RBC Hgb Hct MCV MCH MCHC RDW Plt Count Seg Neutrophils % Lymphocytes % Monocytes % Eosinophils % Basophils % Absolute Neutrophils Absolute Lymphocytes Absolute Monocytes Absolute Eosinophils Absolute Basophils Sodium 142.8 Potassium 3.6 Chloride 110 H Carbon Dioxide 27 Anion Gap 6 BUN 15 Creatinine 0.54 Est GFR ( Amer) > 60 Est GFR (Non-Af Amer) > 60 Glucose 111 H Calcium 8.7 Magnesium 1.9 Total Bilirubin AST ALT Alkaline Phosphatase Total Protein Albumin TSH 2.23 Urine Color Urine Appearance Urine pH Ur Specific [place] Urine Protein Urine Glucose (UA) Urine Ketones Urine Blood Urine Nitrite Ur Leukocyte Esterase Urine WBC (Auto) Urine RBC (Auto) 12/12/18 02:50 WBC 4.9 RBC 3.79 Hgb 12.6 Hct 36.6 MCV 97 MCH 33.3 MCHC 34.5 RDW 12.7 Plt Count 212 Seg Neutrophils % 71.1 Lymphocytes % 17.7 Monocytes % 7.6 Eosinophils % 2.8 Basophils % 0.8 Absolute Neutrophils 3.5 Absolute Lymphocytes 0.9 Absolute Monocytes 0.4 Absolute Eosinophils 0.1 Absolute Basophils 0.0 Sodium Potassium Chloride Carbon Dioxide Anion Gap BUN Creatinine Est GFR ( Amer) Est GFR (Non-Af Amer) Glucose Calcium Magnesium Total Bilirubin AST ALT Alkaline Phosphatase Total Protein Albumin TSH Urine Color Urine Appearance Urine pH Ur Specific [place] Urine Protein Urine Glucose (UA) Urine Ketones Urine Blood Urine Nitrite Ur Leukocyte Esterase Urine WBC (Auto) Urine RBC (Auto) 12/11/18 12/11/18 12/11/18 15:05 15:05 20:30 Creatine Kinase 22 L CK-MB (CK-2) Troponin I < 0.012 < 0.012 12/12/18 12/12/18 02:45 02:50 Creatine Kinase 21 L CK-MB (CK-2) < 0.22 Troponin I < 0.012 Impressions: Chest X-Ray 12/11/18 15:13 IMPRESSION: No acute findings in the chest. Sacrum and Coccyx X-Ray 12/11/18 15:56 IMPRESSION: Question acute hairline nondisplaced fracture through the coccyx on lateral view Assessment and Plan - Diagnosis (1) Fractured coccyx Qualifiers: Encounter type: initial encounter Fracture type: closed Qualified Code(s): S32.2XXA - Fracture of coccyx, initial encounter for closed fracture Is this a current diagnosis for this admission?: Yes Plan: Symptomatic management with Toradol and Tylenol as needed (2) Hypotension Qualifiers: Hypotension type: unspecified hypotension type Qualified Code(s): I95.9 - Hypotension, unspecified Is this a current diagnosis for this admission?: Yes Plan: UTI versus Sinemet. Empiric antibiotics, IV fluid resuscitation, CHERELLE stockings, fall precautions (3) Orthostatic hypotension Is this a current diagnosis for this admission?: Yes Plan: Complicated by Sinemet and UTI. CHERELLE stockings and education (4) UTI (urinary tract infection) Qualifiers: Urinary tract infection type: site unspecified Hematuria presence: with hematuria Qualified Code(s): N39.0 - Urinary tract infection, site not specified; R31.9 - Hematuria, unspecified Is this a current diagnosis for this admission?: Yes Plan: Empiric antibiotics initiated, follow-up CBC blood and urine culture (5) Fall Qualifiers: Encounter type: initial encounter Qualified Code(s): W19.XXXA - Unspecified fall, initial encounter Is this a current diagnosis for this admission?: Yes Plan: Physical therapy consult (6) Parkinson disease Is this a current diagnosis for this admission?: Yes Plan: Continue Sinemet consider reduced dose. - Time Time Spent with patient: 35 or more minutes - Inpatient Certification Medical Necessity: Need Close Monitoring Due to Risk of Patient Decompensation
[2018-12-12] MEDS: CARBIDOPA/LEVODOPA 25-250 MG TABLET PO SCH ×3 (05:43→13:02)
[2018-12-12] MEDS: SUCRALFATE 1 GM TABLET PO SCH ×4 (07:40→21:36)
[2018-12-12] MEDS ORDERED: (PENDING PHARMACY ID) (Amantadine Hcl [Amantadine] 100 MG) PO SCH (10:00)
[2018-12-12] MEDS: ASPIRIN 81 MG TABLET, ENT COATED PO SCH (11:35)
[2018-12-12] MEDS: DOCUSATE SODIUM 100 MG CAPSULE PO SCH ×3 (11:36→19:27)
[2018-12-12] MEDS: POTASSIUM CHLORIDE 10 MEQ CAPSULE.ER PO SCH (11:36)
[2018-12-12] MEDS: AMANTADINE HCL 100 MG CAPSULE PO SCH ×2 (11:37→21:36)
[2018-12-12] MEDS: CETIRIZINE 10 MG TABLET PO SCH ×2 (11:38→21:39)
[2018-12-12] MEDS: CEFTRIAXONE SODIUM 1,500 MG in DEXTROSE 5%-WATER 100 ML IV SCH (11:44)
--- NOTE | 2018-12-12 13:45 | PDOC PROGRESS REPORT ---
Subjective Progress Note for:: 12/12/18 Subjective:: 73 year old female with a past medical history of Parkinson's, GERD, hypertension and recurrent urinary tract infection. Patient presents 1 hour after the onset of the episode of dizziness followed by syncope with hypotension and bradycardia occurring at her primary care physician's office. She is brought to the emergency room after receiving IV fluids feeling largely improved without headache, blurred vision, nausea vomiting but complains of sacral pain. Patient has had several near syncopal episodes some resulting in fall recently. Work-up reveals pyuria and recurrence of orthostatic hypotension. She received IV fluids and empiric antibiotics referred to the hospitalist for admission. She denies recent change in medications. 12/12/[id number]-iooe-old female with history of Parkinson's disease, hypertension, recurrent UTI admitted after history of fall. X-rays indicates fracture of the coccyx. She also found to be hypotensive and bradycardic in the primary care physician's office. Patient is still orthostatic this morning. As per the patient and her daughter Sinemet makes her come hypotensive. Unfortunately she received 1 dose of Sinemet this morning. Plan is to discontinue Sinemet and continue amantadine. Because of the history of fall and hairline fracture of the coccyx physical therapy consult was requested. Orthostatics are positive this morning patient's status is changed to inpatient. She may need to stay at least another day or 2. Reason For Visit: HYPOTENSION ORTHOSTATIC Physical Exam Vital Signs: Temp Pulse Resp BP Pulse Ox 97.3 F 98 18 129/52 H 98 12/12/18 12:11 12/12/18 12:11 12/12/18 12:11 12/12/18 12:11 12/12/18 12:11 Intake & Output 12/11/18 12/12/18 12/13/18 06:59 06:59 06:59 Intake Total 1050 Balance 1050 Weight 74.5 kg General appearance: PRESENT: no acute distress, well-developed Head exam: PRESENT: atraumatic Eye exam: PRESENT: PERRLA Neck exam: ABSENT: carotid bruit, JVD, lymphadenopathy, thyromegaly Respiratory exam: PRESENT: decreased breath sounds Cardiovascular exam: PRESENT: RRR. ABSENT: diastolic murmur, rubs, systolic murmur GI/Abdominal exam: PRESENT: normal bowel sounds, soft. ABSENT: distended, guarding, mass, organolmegaly, rebound, tenderness Rectal exam: PRESENT: deferred Extremities exam: PRESENT: full ROM. ABSENT: calf tenderness, clubbing, pedal edema Neurological exam: PRESENT: alert, awake, oriented to person, oriented to place, oriented to time, oriented to situation, CN II-XII grossly intact. ABSENT: motor sensory deficit Psychiatric exam: PRESENT: appropriate affect, normal mood. ABSENT: homicidal ideation, suicidal ideation Results Laboratory Results: 12/12/18 02:50 12/12/18 02:45 12/11/18 12/11/18 12/11/18 15:05 15:05 16:45 WBC 7.4 RBC 4.09 Hgb 13.4 Hct 39.4 MCV 96 MCH 32.6 MCHC 33.9 RDW 12.5 Plt Count 225 Seg Neutrophils % 86.0 H Lymphocytes % 7.6 L Monocytes % 4.8 Eosinophils % 1.1 Basophils % 0.5 Absolute Neutrophils 6.3 Absolute Lymphocytes 0.6 Absolute Monocytes 0.4 Absolute Eosinophils 0.1 Absolute Basophils 0.0 Sodium 141.2 Potassium 4.0 Chloride 108 H Carbon Dioxide 29 Anion Gap 4 L BUN 16 Creatinine 0.69 Est GFR ( Amer) > 60 Est GFR (Non-Af Amer) > 60 Glucose 110 Calcium 9.3 Magnesium Total Bilirubin 0.5 AST 15 ALT 25 Alkaline Phosphatase 92 Total Protein 6.1 L Albumin 3.5 TSH Urine Color YELLOW Urine Appearance CLOUDY Urine pH 7.0 Ur Specific [place] 1.020 Urine Protein 30 H Urine Glucose (UA) NEGATIVE Urine Ketones NEGATIVE Urine Blood MODERATE H Urine Nitrite NEGATIVE Ur Leukocyte Esterase LARGE H Urine WBC (Auto) 154 Urine RBC (Auto) 55 12/11/18 12/11/18 12/12/18 20:30 20:30 02:45 WBC RBC Hgb Hct MCV MCH MCHC RDW Plt Count Seg Neutrophils % Lymphocytes % Monocytes % Eosinophils % Basophils % Absolute Neutrophils Absolute Lymphocytes Absolute Monocytes Absolute Eosinophils Absolute Basophils Sodium 142.8 Potassium 3.6 Chloride 110 H Carbon Dioxide 27 Anion Gap 6 BUN 15 Creatinine 0.54 Est GFR ( Amer) > 60 Est GFR (Non-Af Amer) > 60 Glucose 111 H Calcium 8.7 Magnesium 1.9 Total Bilirubin AST ALT Alkaline Phosphatase Total Protein Albumin TSH 2.23 Urine Color Urine Appearance Urine pH Ur Specific [place] Urine Protein Urine Glucose (UA) Urine Ketones Urine Blood Urine Nitrite Ur Leukocyte Esterase Urine WBC (Auto) Urine RBC (Auto) 12/12/18 02:50 WBC 4.9 RBC 3.79 Hgb 12.6 Hct 36.6 MCV 97 MCH 33.3 MCHC 34.5 RDW 12.7 Plt Count 212 Seg Neutrophils % 71.1 Lymphocytes % 17.7 Monocytes % 7.6 Eosinophils % 2.8 Basophils % 0.8 Absolute Neutrophils 3.5 Absolute Lymphocytes 0.9 Absolute Monocytes 0.4 Absolute Eosinophils 0.1 Absolute Basophils 0.0 Sodium Potassium Chloride Carbon Dioxide Anion Gap BUN Creatinine Est GFR ( Amer) Est GFR (Non-Af Amer) Glucose Calcium Magnesium Total Bilirubin AST ALT Alkaline Phosphatase Total Protein Albumin TSH Urine Color Urine Appearance Urine pH Ur Specific [place] Urine Protein Urine Glucose (UA) Urine Ketones Urine Blood Urine Nitrite Ur Leukocyte Esterase Urine WBC (Auto) Urine RBC (Auto) 12/11/18 12/11/18 12/11/18 15:05 15:05 20:30 Creatine Kinase 22 L CK-MB (CK-2) Troponin I < 0.012 < 0.012 12/12/18 12/12/18 12/12/18 02:45 02:50 08:19 Creatine Kinase 21 L CK-MB (CK-2) < 0.22 Troponin I < 0.012 < 0.012 Impressions: Chest X-Ray 12/11/18 15:13 IMPRESSION: No acute findings in the chest. Sacrum and Coccyx X-Ray 12/11/18 15:56 IMPRESSION: Question acute hairline nondisplaced fracture through the coccyx on lateral view Assessment and Plan - Diagnosis (1) Fractured coccyx Qualifiers: Encounter type: initial encounter Fracture type: closed Qualified Code (s): S32.2XXA - Fracture of coccyx, initial encounter for closed fracture Is this a current diagnosis for this admission?: Yes Plan: Symptomatic management with Toradol and Tylenol as needed 12/12/2018-patient came in with history of fall and hairline fracture of the coccyx. Patient is on conservative management. (2) Hypotension Qualifiers: Hypotension type: unspecified hypotension type Qualified Code(s): I95.9 - Hypotension, unspecified Is this a current diagnosis for this admission?: Yes (3) Orthostatic hypotension Is this a current diagnosis for this admission?: Yes Plan: Complicated by Sinemet and UTI. CHERELLE stockings and education 12/12/2018-patient came in with orthostatic hypotension and it was positive again today. Patient is a history of fall at home. This morning patient received Sinemet but the daughter is adamant that Sinemet is given the hypotension issues. Patient is still complaining of dizziness when try to ambulate. Plan is to continue to monitor blood pressures under physical therapy consult was requested and that she may have to stay at least another day or 2 in the hospital. Sinemet is discontinued. (4) UTI (urinary tract infection) Qualifiers: Urinary tract infection type: site unspecified Hematuria presence: with hematuria Qualified Code(s): N39.0 - Urinary tract infection, site not specified; R31.9 - Hematuria, unspecified Is this a current diagnosis for this admission?: Yes Plan: Empiric antibiotics initiated, follow-up CBC blood and urine culture 12/12/2018-patient came in with UTI and she has history of recurrent UTI. Analysis shows moderate amount of blood and leukocyte esterase is large. WBC count is 154. Urine culture is showing gram-negative rods. Waiting for the sensitivity report. (5) Syncope Qualifiers: Syncope type: unspecified Qualified Code(s): R55 - Syncope and collapse Is this a current diagnosis for this admission?: Yes Plan: 12/12/[id number]-aqha-old female came in with syncope and fall and has a hairline fracture in the coccyx. Physical therapy consult was requested. (6) Parkinson disease Is this a current diagnosis for this admission?: Yes Plan: Continue Sinemet consider reduced dose. 12/12/2018-patient has a history of Parkinson's disease. She is taking amantadine at home. Patient and daughter are adamant that the Sinemet is causing hypotension and as per them it was discontinued by the neurologist few months ago. - Time Time Spent with patient: 15-24 minutes Medications reviewed and adjusted accordingly: Yes Anticipated discharge: Home
[2018-12-12] MEDS: ATORVASTATIN CALCIUM 40 MG TABLET PO SCH (21:38)
[2018-12-12] MEDS: GABAPENTIN 300 MG CAPSULE PO SCH (21:38)
[2018-12-13 06:18] LABS: ABSOLUTE EOSINOPHILS # (AUTO) 0.2 10^3/uL (0.0-0.6); ABSOLUTE LYMPHOCYTES (AUTO) 1.1 10^3/uL (0.5-4.7); ABSOLUTE MONOCYTES (AUTO) 0.3 10^3/uL (0.1-1.4); ABSOLUTE NEUT (AUTO) 3.4 10^3/uL (1.7-8.2); BASOPHILS % (AUTO) 0.8 % (0-2); EOSINOPHILS % (AUTO) 3.9 % (0-6); HEMATOCRIT 38.7 % (36.0-47.0); HEMOGLOBIN 13.1 g/dL (12.0-15.5); LYMPHOCYTES % (AUTO) 21.7 % (13-45); MEAN CORPUSCULAR HEMOGLOBIN 32.9 pg (27.0-33.4); MEAN CORPUSCULAR HGB CONC 33.7 g/dL (32.0-36.0); MEAN CORPUSCULAR VOLUME 98 fl (80-97); MONOCYTES % (AUTO) 6.8 % (3-13); PLATELET COUNT 206 10^3/uL (150-450); RED BLOOD COUNT 3.97 10^6/uL (3.72-5.28); RED CELL DISTRIBUTION WIDTH 12.7 % (11.5-14.0); SEGMENTED NEUTROPHILS % (AUTO) 66.8 % (42-78); TOTAL CELLS COUNTED % (AUTO) 100 %; WHITE BLOOD COUNT 5.1 10^3/uL (4.0-10.5)
[2018-12-13] MEDS: HEPARIN SOD (PORCINE) 5,000 UNIT/ML 1 ML SYRINGE SUBCUT SCH ×3 (06:28→21:50)
[2018-12-13 06:42] LABS: ALANINE AMINOTRANSFERASE 23 U/L (9-52); ALBUMIN 3.3 g/dL (3.5-5.0); ALKALINE PHOSPHATASE 82 U/L (38-126); ANION GAP 6 (5-19); ASPARTATE AMINO TRANSFERASE 16 U/L (14-36); BILIRUBIN,DIRECT 0.2 mg/dL (0.0-0.4); BILIRUBIN,TOTAL 0.6 mg/dL (0.2-1.3); BLOOD UREA NITROGEN 10 mg/dL (7-20); CALCIUM 9.2 mg/dL (8.4-10.2); CARBON DIOXIDE 28 mmol/L (22-30); CHLORIDE 108 mmol/L (98-107); GLUCOSE 84 mg/dL (75-110); POTASSIUM 3.8 mmol/L (3.6-5.0); SODIUM 142.3 mmol/L (137-145); TOTAL PROTEIN 5.9 g/dL (6.3-8.2)
[2018-12-13] MEDS: SUCRALFATE 1 GM TABLET PO SCH ×4 (10:29→21:51)
[2018-12-13] MEDS: POTASSIUM CHLORIDE 10 MEQ CAPSULE.ER PO SCH (10:32)
[2018-12-13] MEDS: DOCUSATE SODIUM 100 MG CAPSULE PO SCH ×2 (10:32→18:46)
[2018-12-13] MEDS: AMANTADINE HCL 100 MG CAPSULE PO SCH ×2 (10:32→21:52)
[2018-12-13] MEDS: ASPIRIN 81 MG TABLET, ENT COATED PO SCH (10:32)
[2018-12-13] MEDS: CEFTRIAXONE SODIUM 1,500 MG in DEXTROSE 5%-WATER 100 ML IV SCH (10:35)
--- NOTE | 2018-12-13 16:37 | PDOC PROGRESS REPORT ---
Subjective Progress Note for:: 12/13/18 Subjective:: Patient seen resting in bed. She is awake, alert, oriented x3. She denies any chest pain, shortness of breath or dyspnea. She denies any headache or dizziness. She denies any nausea, vomiting or abdominal pain. She denies fevers or chills overnight. She is having some pain in her tailbone. She states it is worse when she walks. This is improved from yesterday. She denies any other arthralgias or myalgias. She is wanting to get up and walk more. Reason For Visit: ORTHOSTATIC HYPOTENSION Physical Exam Vital Signs: Temp Pulse Resp BP Pulse Ox 98.6 F 111 H 15 129/59 H 98 12/13/18 15:02 12/13/18 15:02 12/13/18 15:02 12/13/18 15:02 12/13/18 15:02 Intake & Output 12/12/18 12/13/18 12/14/18 06:59 06:59 06:59 Intake Total 1050 600 336 Output Total 3600 Balance 1050 -3000 336 Weight 74.5 kg 76.5 kg General appearance: PRESENT: no acute distress, well-developed, well-nourished Head exam: PRESENT: atraumatic, normocephalic Eye exam: PRESENT: conjunctiva pink, EOMI, PERRLA. ABSENT: scleral icterus Ear exam: PRESENT: normal external ear exam Mouth exam: PRESENT: moist, tongue midline Neck exam: ABSENT: carotid bruit, JVD, lymphadenopathy, thyromegaly Respiratory exam: PRESENT: clear to auscultation nakul. ABSENT: rales, rhonchi, wheezes Cardiovascular exam: PRESENT: RRR. ABSENT: diastolic murmur, rubs, systolic murmur Pulses: PRESENT: normal dorsalis pedis pul Vascular exam: PRESENT: normal capillary refill GI/Abdominal exam: PRESENT: normal bowel sounds, soft. ABSENT: distended, guarding, mass, organolmegaly, rebound, tenderness Rectal exam: PRESENT: deferred Extremities exam: PRESENT: full ROM. ABSENT: calf tenderness, clubbing, pedal edema Musculoskeletal exam: PRESENT: ambulatory, full ROM - Sacral area, tenderness Neurological exam: PRESENT: alert, awake, oriented to person, oriented to place, oriented to time, oriented to situation, CN II-XII grossly intact, other - Parkinson's tremors in both hands. ABSENT: motor sensory deficit Psychiatric exam: PRESENT: appropriate affect, normal mood. ABSENT: homicidal ideation, suicidal ideation Skin exam: PRESENT: dry, intact, warm. ABSENT: cyanosis, rash Results Laboratory Results: 12/13/18 04:30 12/13/18 04:30 12/13/18 12/13/18 04:30 04:30 WBC 5.1 RBC 3.97 Hgb 13.1 Hct 38.7 MCV 98 H MCH 32.9 MCHC 33.7 RDW 12.7 Plt Count 206 Seg Neutrophils % 66.8 Lymphocytes % 21.7 Monocytes % 6.8 Eosinophils % 3.9 Basophils % 0.8 Absolute Neutrophils 3.4 Absolute Lymphocytes 1.1 Absolute Monocytes 0.3 Absolute Eosinophils 0.2 Absolute Basophils 0.0 Sodium 142.3 Potassium 3.8 Chloride 108 H Carbon Dioxide 28 Anion Gap 6 BUN 10 Creatinine 0.41 L Est GFR ( Amer) > 60 Est GFR (Non-Af Amer) > 60 Glucose 84 Calcium 9.2 Magnesium 2.1 Total Bilirubin 0.6 AST 16 ALT 23 Alkaline Phosphatase 82 Total Protein 5.9 L Albumin 3.3 L 12/11/18 16:45 Catheterized Urine Urine Culture - Final Escherichia Coli Proteus Mirabilis 12/11/18 12/11/18 12/11/18 15:05 15:05 20:30 Creatine Kinase 22 L CK-MB (CK-2) Troponin I < 0.012 < 0.012 12/12/18 12/12/18 12/12/18 02:45 02:50 08:19 Creatine Kinase 21 L CK-MB (CK-2) < 0.22 Troponin I < 0.012 < 0.012 Impressions: Chest X-Ray 12/11/18 15:13 IMPRESSION: No acute findings in the chest. Sacrum and Coccyx X-Ray 12/11/18 15:56 IMPRESSION: Question acute hairline nondisplaced fracture through the coccyx on lateral view Assessment and Plan - Diagnosis (1) Syncope Qualifiers: Syncope type: unspecified Qualified Code(s): R55 - Syncope and collapse Is this a current diagnosis for this admission?: Yes Plan: 73-year-old female came in with syncope and fall and has a hairline fracture in the coccyx. Physical therapy consult was requested. Her Sinemet had been discontinued by primary care provider because of hypotension. (2) Orthostatic hypotension Is this a current diagnosis for this admission?: Yes Plan: Complicated by Sinemet and UTI. CHERELLE stockings and education. Sinemet was discontinued yesterday. (3) Fractured coccyx Qualifiers: Encounter type: initial encounter Fracture type: closed Qualified Code(s): S32.2XXA - Fracture of coccyx, initial encounter for closed fracture Is this a current diagnosis for this admission?: Yes Plan: Symptomatic management with Toradol and Tylenol as needed 12/12/2018-patient came in with history of fall and hairline fracture of the coccyx. Patient is on conservative management. (4) UTI (urinary tract infection) Qualifiers: Urinary tract infection type: site unspecified Hematuria presence: with hematuria Qualified Code(s): N39.0 - Urinary tract infection, site not specified; R31.9 - Hematuria, unspecified Is this a current diagnosis for this admission?: Yes Plan: Urine culture is positive for E. coli and Proteus mirabilis. We will continue IV ceftriaxone today (5) Hyperlipidemia Qualifiers: Hyperlipidemia type: unspecified Qualified Code(s): E78.5 - Hyperlipidemia, unspecified Is this a current diagnosis for this admission?: Yes Plan: Continue statin. (6) Parkinson disease Is this a current diagnosis for this admission?: Yes Plan: She is taking amantadine at home. Patient and daughter are adamant that the Sinemet is causing hypotension and as per them it was discontinued by the neurologist few months ago. - Time Time Spent with patient: 25-34 minutes Total Critical Time (Minutes): 20 Medications reviewed and adjusted accordingly: Yes Anticipated discharge: Home with Homehealth Within: within 48 hours - Inpatient Certification Based on my medical assessment, after consideration of the patient's comorbiditi es, presenting symptoms, or acuity I expect that the services needed warrant INPATIENT care.: Yes I certify that my determination is in accordance with my understanding of [facility]'s requirements for reasonable and necessary INPATIENT services [42 CFR 412.3e].: Yes Medical Necessity: Risk of Complication if Not Cared For in Hospital
[2018-12-13] MEDS: GABAPENTIN 300 MG CAPSULE PO SCH (21:52)
[2018-12-13] MEDS: ATORVASTATIN CALCIUM 40 MG TABLET PO SCH (21:52)
[2018-12-13] MEDS: CETIRIZINE 10 MG TABLET PO SCH (21:53)
[2018-12-14] MEDS: HEPARIN SOD (PORCINE) 5,000 UNIT/ML 1 ML SYRINGE SUBCUT SCH (05:59)
[2018-12-14] MEDS: SUCRALFATE 1 GM TABLET PO SCH ×2 (08:54→10:46)
[2018-12-14] MEDS: CEFTRIAXONE SODIUM 1,500 MG in DEXTROSE 5%-WATER 100 ML IV SCH (09:21)
[2018-12-14] MEDS: DOCUSATE SODIUM 100 MG CAPSULE PO SCH (09:24)
[2018-12-14] MEDS: ASPIRIN 81 MG TABLET, ENT COATED PO SCH (09:25)
[2018-12-14] MEDS: POTASSIUM CHLORIDE 10 MEQ CAPSULE.ER PO SCH (09:25)
[2018-12-14] MEDS: AMANTADINE HCL 100 MG CAPSULE PO SCH (09:26)
[2018-12-14 11:12] VITALS: BP 119/62
--- NOTE | 2018-12-14 11:12 | PDOC DISCHARGE SUMMARY ---
General - Admit/Disc Date/PCP Admission Date/Primary Care Provider: 12/12/18 13:28 RENEA ZAPATA MD Discharge Date: 12/14/18 - Discharge Diagnosis (1) Syncope Is this a current diagnosis for this admission?: Yes (2) Orthostatic hypotension Is this a current diagnosis for this admission?: Yes (3) Fractured coccyx Is this a current diagnosis for this admission?: Yes (4) UTI (urinary tract infection) Is this a current diagnosis for this admission?: Yes (5) Hyperlipidemia Is this a current diagnosis for this admission?: Yes (6) Parkinson disease Is this a current diagnosis for this admission?: Yes - Additional Information Resuscitation Status: Full Code Discharge Diet: Regular Discharge Activity: Activity As Tolerated, Balance Activity w/Rest Prescriptions: Cefuroxime Axetil [Ceftin 500 mg Tablet] 500 mg PO BID #14 tablet Home Medications: Aspirin [Ecotrin 81 mg EC Tablet] 81 mg PO DAILY 01/16/18 Atorvastatin Calcium [Lipitor 40 mg Tablet] 40 mg PO QHS #30 tablet 01/16/18 Acetaminophen [Tylenol Extra Strength 500 mg Tablet] 1 tab PO QID 12/11/18 Amantadine HCl [Amantadine] 100 mg PO Q12 12/11/18 Celecoxib [Celebrex 200 mg Capsule] 200 mg PO DAILY 12/11/18 Cetirizine HCl [Zyrtec 10 mg Tablet] 10 mg PO QHS 12/11/18 Potassium Chloride 20 meq PO DAILY 12/11/18 Sucralfate [Carafate 1 gm Tablet] 1 gm PO ACHS 12/11/18 Acetaminophen [Tylenol 325 mg Tablet] 650 mg PO Q4HP PRN tablet 12/14/18 Cefuroxime Axetil [Ceftin 500 mg Tablet] 500 mg PO BID #14 tablet 12/14/18 History of Present Illness Patient complains of: Syncope History of Present Illness: JANETH MIRANDA is a 73 year old female with a past medical history of Parkinson's, GERD, hypertension and recurrent urinary tract infection. Patient presents 1 hour after the onset of the episode of dizziness followed by syncope with hypotension and bradycardia occurring at her primary care physician's office. She is brought to the emergency room after receiving IV fluids feeling largely improved without headache, blurred vision, nausea vomiting but complains of sacral pain. Patient has had several near syncopal episodes some resulting in fall recently. Work-up reveals pyuria and recurrence of orthostatic hypotension. She received IV fluids and empiric antibiotics referred to the hospitalist for admission. She denies recent change in medications. Hospital Course Hospital Course: Patient was admitted to telemetry. She was continued on IV fluids and broad- spectrum antibiotics. Blood cultures x2 and urine culture were present. Urine culture was positive for E. coli and Proteus mirabilis. Orthostatic hypotension was noted initially over the first 24 hours. This resolved with IV hydration. She was noted to have a sacral fracture on x-rays. Daughter states this is old. Initially had to have Norris catheter placed for urinary retention. Resolved. She is able to urinate after the Norris was discontinued. She ambulated with physical therapy and nursing staff with a walker. Physical Exam Vital Signs: Temp Pulse Resp BP Pulse Ox 97.7 F 110 H 18 109/68 98 12/14/18 09:11 12/14/18 09:11 12/14/18 09:11 12/14/18 09:11 12/14/18 09:11 Intake & Output 12/13/18 12/14/18 12/15/18 06:59 06:59 06:59 Intake Total 600 656 100 Output Total 3600 Balance -3000 656 100 Weight 76.5 kg 76.9 kg General appearance: PRESENT: no acute distress, well-developed, well-nourished Head exam: PRESENT: atraumatic, normocephalic Eye exam: PRESENT: conjunctiva pink, EOMI, PERRLA. ABSENT: scleral icterus Ear exam: PRESENT: normal external ear exam Mouth exam: PRESENT: moist, tongue midline Neck exam: ABSENT: carotid bruit, JVD, lymphadenopathy, thyromegaly Respiratory exam: PRESENT: clear to auscultation nakul. ABSENT: rales, rhonchi, wheezes Cardiovascular exam: PRESENT: RRR. ABSENT: diastolic murmur, rubs, systolic murmur Pulses: PRESENT: normal dorsalis pedis pul Vascular exam: PRESENT: normal capillary refill GI/Abdominal exam: PRESENT: normal bowel sounds, soft. ABSENT: distended, guarding, mass, organolmegaly, rebound, tenderness Rectal exam: PRESENT: deferred Extremities exam: PRESENT: full ROM. ABSENT: calf tenderness, clubbing, pedal edema Neurological exam: PRESENT: alert, awake, oriented to person, oriented to place, oriented to time, oriented to situation, CN II-XII grossly intact. ABSENT: motor sensory deficit Psychiatric exam: PRESENT: appropriate affect, normal mood. ABSENT: homicidal ideation, suicidal ideation Skin exam: PRESENT: dry, intact, warm. ABSENT: cyanosis, rash Results Laboratory Results: 12/13/18 04:30 12/13/18 04:30 12/11/18 16:45 Catheterized Urine Urine Culture - Final Escherichia Coli Proteus Mirabilis 12/11/18 12/11/18 12/11/18 15:05 15:05 20:30 Creatine Kinase 22 L CK-MB (CK-2) Troponin I < 0.012 < 0.012 12/12/18 12/12/18 12/12/18 02:45 02:50 08:19 Creatine Kinase 21 L CK-MB (CK-2) < 0.22 Troponin I < 0.012 < 0.012 Impressions: Chest X-Ray 12/11/18 15:13 IMPRESSION: No acute findings in the chest. Sacrum and Coccyx X-Ray 12/11/18 15:56 IMPRESSION: Question acute hairline nondisplaced fracture through the coccyx on lateral view Qualifiers - * PATIENT BEING DISCHARGED WITH ANY OF THE FOLLOWING DIAGNOSIS: No Plan Discharge Plan: Home with home health nursing and physical therapy Time Spent: Less than 30 Minutes
== END 2018-12-14 12:03 | disposition home health service (06) | DRG 312 ==
LOC: ER 14:56 → EH 18:45 → INTOOBSV 18:45 → 5 23:19 → OBSVTOIN 12-12 13:28
PROVIDERS: ADMIT Internal Medicine; ATTEND Internal Medicine
PROC: 3E0F73Z Introduction of Anti-inflammatory into Respiratory Tract, Via Natural or Artificial Opening (ICD-10-PCS; principal; 2018-12-12)
DX: I95.1 Orthostatic hypotension (principal); S32.2XXA Fracture of coccyx, initial encounter for closed fracture; N39.0 Urinary tract infection, site not specified; B96.20 Unspecified Escherichia coli [E. coli] as the cause of diseases classified elsewhere; B96.4 Proteus (mirabilis) (morganii) as the cause of diseases classified elsewhere; E78.5 Hyperlipidemia, unspecified; G20 Parkinson's disease; W19.XXXA Unspecified fall, initial encounter; K21.9 Gastro-esophageal reflux disease without esophagitis; Z79.82 Long term (current) use of aspirin; Z79.899 Other long term (current) drug therapy; Z85.3 Personal history of malignant neoplasm of breast; Z82.49 Family history of ischemic heart disease and other diseases of the circulatory system
CPT/HCPCS: 36415; 71045; 72220; 80048; 80053; 80307; 81001; 82550; 82553; 83735; 84443; 84484; 85025; 87086; 87088; 87186; 93005; 93010; 99285; J0696; J1644; J1885; J3490; J7030

== ENCOUNTER 2019-03-05 22:21 | Emergency (ER) | payer MEDICARE, OTHER ==
[2019-03-05 23:58] LABS: ALANINE AMINOTRANSFERASE 22 U/L (9-52); ALBUMIN 4.2 g/dL (3.5-5.0); ALKALINE PHOSPHATASE 123 U/L (38-126); ANION GAP 9 (5-19); ASPARTATE AMINO TRANSFERASE 21 U/L (14-36); BILIRUBIN,DIRECT 0.2 mg/dL (0.0-0.4); BILIRUBIN,TOTAL 1.2 mg/dL (0.2-1.3); BLOOD UREA NITROGEN 17 mg/dL (7-20); CALCIUM 9.4 mg/dL (8.4-10.2); CARBON DIOXIDE 25 mmol/L (22-30); CHLORIDE 104 mmol/L (98-107); GLUCOSE 132 mg/dL (75-110); POTASSIUM 4.3 mmol/L (3.6-5.0); SODIUM 138.2 mmol/L (137-145); TOTAL PROTEIN 7.1 g/dL (6.3-8.2)
[2019-03-06 00:05] LABS: ABSOLUTE LYMPHOCYTES (AUTO) 0.6 10^3/uL (0.5-4.7); ABSOLUTE MONOCYTES (AUTO) 0.2 10^3/uL (0.1-1.4); ABSOLUTE NEUT (AUTO) 6.6 10^3/uL (1.7-8.2); BASOPHILS % (AUTO) 0.2 % (0-2); HEMOGLOBIN 14.4 g/dL (12.0-15.5); LYMPHOCYTES % (AUTO) 7.6 % (13-45); MEAN CORPUSCULAR HEMOGLOBIN 32.3 pg (27.0-33.4); MEAN CORPUSCULAR HGB CONC 33.4 g/dL (32.0-36.0); MEAN CORPUSCULAR VOLUME 97 fl (80-97); MONOCYTES % (AUTO) 2.9 % (3-13); PLATELET COUNT 246 10^3/uL (150-450); RED BLOOD COUNT 4.45 10^6/uL (3.72-5.28); RED CELL DISTRIBUTION WIDTH 12.5 % (11.5-14.0); SEGMENTED NEUTROPHILS % (AUTO) 89.3 % (42-78); TOTAL CELLS COUNTED % (AUTO) 100 %; WHITE BLOOD COUNT 7.5 10^3/uL (4.0-10.5)
[2019-03-06] MEDS ORDERED: MORPHINE SULFATE 10 MG/ML INJ IV ONE ×4 (01:25→14:40)
[2019-03-06] MEDS ORDERED: ONDANSETRON HCL INJ/PF 4 MG/2 ML SDV IV ONE ×3 (01:26→14:40)
--- NOTE | 2019-03-06 01:43 | ER Document Report ---
ED General - General Chief Complaint: Flank Pain Stated Complaint: LOWER BACK PAIN Time Seen by Provider: 03/06/19 00:45 Primary Care Provider: RENEA ZAPATA MD [Primary Care Provider] - Follow up as needed TRAVEL OUTSIDE OF THE [place] IN LAST 30 DAYS: No - HPI Notes: Patient is a 74-year-old female who presents emergency department for evaluation of right-sided flank pain. It was onset at 1:00 this afternoon, patient cannot remember in particular what she was doing. She has had 4 episodes of nonbloody, nonbilious emesis with this. She states she has not had a bowel movement at all today. Her pain "just hurts" and she rates it an 8 out of 10. It is been constant since onset. It does not wax and wane in intensity. She denies any associated fevers or chills. She denies any dysuria, urinary frequency, or gross hematuria. She does not believe she has ever had pain like this in the past. - Related Data Allergies/Adverse Reactions: No Known Allergies Allergy (Unverified 06/19/15 10:58) Past Medical History - General Information source: Patient, Relative - Social History Smoking Status: Never Smoker Drug Abuse: None Family History: Hypertension - Past Medical History Cardiac Medical History: Reports: Hx Hypercholesterolemia Denies: Hx Congestive Heart Failure, Hx Heart Attack, Hx Hypertension Pulmonary Medical History: Reports: Hx Bronchitis - hx of, Hx Pneumonia - hx of Denies: Hx Asthma - sinuses, Hx COPD, Hx Tuberculosis Neurological Medical History: Reports: Hx Cerebrovascular Accident - Multiple TIAs, Other - Parkinson's disease. Denies: Hx Seizures Renal/ Medical History: Denies: Hx End Stage Renal Disease, Hx Kidney Stones, Hx Peritoneal Dialysis Malignancy Medical History: Reports: Hx Breast Cancer GI Medical History: Reports: Hx Gastroesophageal Reflux Disease, Hx Ulcer - No history of bleeding ulcers. Denies: Hx Cirrhosis Musculoskeletal Medical History: Reports Hx Arthritis, Denies Hx Multiple Sclerosis Psychiatric Medical History: Denies: Hx Bipolar Disorder, Hx Depression, Hx Schizophrenia Past Surgical History: Reports: Hx Breast Surgery - Right lumpectomy, Other - Port-A-Cath - Immunizations Hx Diphtheria, Pertussis, Tetanus Vaccination: No Review of Systems - Review of Systems Constitutional: No symptoms reported EENT: No symptoms reported Cardiovascular: No symptoms reported Respiratory: No symptoms reported Gastrointestinal: See HPI Genitourinary: See HPI Female Genitourinary: No symptoms reported Musculoskeletal: No symptoms reported Skin: No symptoms reported Neurological/Psychological: No symptoms reported Physical Exam - Vital signs Vitals: Temp Pulse Resp BP Pulse Ox 98.2 F 80 16 148/77 H 99 03/05/19 22:33 03/05/19 22:33 03/05/19 22:33 03/05/19 22:33 03/05/19 22:33 - Notes Notes: This is a 74-year-old female who appears her stated age, no acute distress. She is holding hot packs against her right lower abdomen. Vital signs reviewed, please refer to chart. Head is normocephalic, atraumatic. Pupils equal round, reactive to light. Neck is supple without meningismus. Heart is regular rate and rhythm. Lungs are clear to auscultation bilaterally. Abdomen is soft, moderate right lower quadrant tenderness without rebound or guarding, normoactive bowel sounds throughout. Extremities without cyanosis, clubbing. Posterior calves are nontender. Peripheral pulses are equal. Skin is warm and dry. Patient is awake, alert, some rigidity of the upper extremities consistent with her Parkinson's. Course - Re-evaluation Re-evalutation: 03/06/19 01:43 Patient presents emergency department for evaluation of right-sided flank pain. Laboratory investigations obtained, morphine, Zofran ordered. I am curious as to this patient's urinalysis findings. She is wearing a depends in the room, patient's daughter notes that she is incontinent. She does agree to a straight cath specimen. This is ordered. Awaiting results to determine CT with or without contrast of the abdomen and pelvis. 03/06/19 04:43 Patient is still having pain despite morphine. She is given a second dose. She is found to have 2 kidney stones. Her urine shows blood, but also an equivalent number of white blood cells. I am concerned about the possibility of a coexistent infection, particularly given the presence of 4+ bacteria and this c atheterized specimen. Contacting outside facilities for transfer. 03/06/19 04:46 Spoke with transfer center at [facility]. I am notified by Jan, who answered the transfer line, that it will likely be at least 12 hours before bed is available. We will attempt to contact [facility]. 03/06/19 04:49 I spoke with the coding coordinator at [facility]. I notified that they are on full medicine diversion. Given that this patient has multiple medical issues, they do not believe they will be able to accommodate this patient at this time. Will speak to [facility]. 03/06/19 05:09 Patient is excepted in [place]. Dr. Nassar, Internal Medicine, accepts, patient will have to wait for discharge is for a bed. Patient was also notified of the ovarian cyst noted on CT scan and the need for follow-up regarding this as well. 03/06/19 05:10 - Vital Signs Vital signs: Temp Pulse Resp BP Pulse Ox 98.2 F 80 16 148/77 H 99 03/05/19 22:33 03/05/19 22:33 03/05/19 22:33 03/05/19 22:33 03/05/19 22:33 - Laboratory Result Diagrams: 03/05/19 23:30 03/05/19 23:30 Laboratory results interpreted by me: 03/05/19 03/05/19 03/06/19 23:30 23:30 02:09 Seg Neutrophils % 89.3 H Lymphocytes % 7.6 L Monocytes % 2.9 L Glucose 132 H Lipase 22.0 L Urine Blood MODERATE H Ur Leukocyte Esterase TRACE H Discharge - Discharge Clinical Impression: Hydronephrosis with urinary obstruction due to ureteral calculus UTI (urinary tract infection) Qualifiers: Urinary tract infection type: site unspecified Ovarian cyst Qualifiers: Laterality: right Qualified Code(s): N83.201 - Unspecified ovarian cyst, right side Condition: Stable Disposition: [facility] Referrals: RENEA ZAPATA MD [Primary Care Provider] - Follow up as needed
[2019-03-06 02:27] LABS: APPEARANCE,URINE SLIGHTLY-CLOUDY; BILIRUBIN,URINE NEGATIVE (NEGATIVE); COLOR,URINE YELLOW; GLUCOSE, URINE NEGATIVE (NEGATIVE); KETONES,URINE NEGATIVE (NEGATIVE); LEUKOCYTE ESTERASE,URINE TRACE (NEGATIVE); NITRITE,URINE NEGATIVE (NEGATIVE); PROTEIN,URINE NEGATIVE (NEGATIVE); URINE SPECIFIC GRAVITY 1.015; UROBILINOGEN,URINE NEGATIVE mg/dL (<2.0)
[2019-03-06 02:32] LABS: ADD MANUAL MICROSCOPIC YES
[2019-03-06 02:33] LABS: BACTERIA,URINE 4+ /HPF; WHITE BLOOD CELL CASTS, URINE 0-1 /LPF
--- NOTE | 2019-03-06 03:54 | RADIOLOGY REPORT (SQ) ---
CT abdomen and pelvis without contrast on 03/06/2019 at 3:01 AM CLINICAL INDICATION: Right-sided back pain, history of right breast cancer TECHNIQUE: Multiple axial images are obtained throughout the abdomen and pelvis without the administration of contrast. This exam was performed according to our departmental dose-optimization program, which includes automated exposure control, adjustment of the mA and/or kV according to patient size and/or use of iterative reconstruction technique. Total DLP is 876.31 mGy*cm. COMPARISON: PET/CT from 01/11/2017 FINDINGS: Abdomen: There has been decrease in size of likely postoperative seroma or hematoma in the medial right breast presumably at lumpectomy site. There is minimal bibasilar atelectasis. The patient is status post cholecystectomy. Vascular calcifications are noted. There is moderate right hydronephrosis secondary to a couple of adjacent right UPJ stones at the L4 vertebral body level. The larger is the more proximal stone measuring 7 mm. The smaller more distal stone measures 4 mm. There is right perinephric stranding related to the obstruction. There is a 5 mm nonobstructing stone in the lower pole of the right kidney. No other renal or ureteral stone is noted. The unenhanced solid abdominal organs are otherwise unremarkable. There is no abdominal adenopathy. There is no free fluid or free air within the abdomen. The abdominal portion of the GI tract is unremarkable. Pelvis: Small amount of air in the bladder is most likely related to recent catheterization but please correlate clinically to exclude infection as a cause. The patient is status post right total hip arthroplasty which produces artifact limiting some of the evaluation of the pelvis. There is a small 2.9 x 2.4 x 2.6 cm simple appearing dominant follicle in the right ovary. Since this is an unenhanced exam and based upon its size and the patient's age would recommend prompt ultrasound follow-up. Pelvic organs otherwise appear unremarkable by CT. There is diverticulosis. Pelvic portion of the GI tract is otherwise unremarkable. There is no pelvic adenopathy. Degenerative changes are noted in the spine. IMPRESSION: 1. Moderate right hydronephrosis secondary to a couple of adjacent right UPJ stones with the largest being the more proximal stone measuring 7 mm. Recommend urology consultation. 2. Right nephrolithiasis. 3. 2.9 cm simple appearing dominant follicle in the right ovary favored to be benign but based upon the patient's age, this being an unenhanced exam and its size would recommend prompt ultrasound follow-up. 4. Diverticulosis.
[2019-03-06] MEDS ORDERED: CEFTRIAXONE 1 GM/D5W RTU 1 GM/50 ML RTUPB IV ONE (04:41)
[2019-03-06] MEDS ORDERED: (PENDING PHARMACY ID) (Acetaminophen [Tylenol Extra Strength 500 Mg Tablet] 1 TAB) PO PRN (11:41)
[2019-03-06] MEDS ORDERED: ACETAMINOPHEN 325 MG TABLET PO PRN (11:43)
[2019-03-06] MEDS ORDERED: BENZTROPINE MESYLATE 1 MG TABLET PO SCH ×2 (12:00→22:00)
[2019-03-06] MEDS ORDERED: CELECOXIB 200 MG CAPSULE PO SCH (13:00)
[2019-03-06] MEDS ORDERED: AMANTADINE HCL 100 MG CAPSULE PO SCH ×2 (13:00→22:00)
[2019-03-06] MEDS ORDERED: ASPIRIN 81 MG TABLET, ENT COATED PO SCH (13:00)
[2019-03-06] MEDS ORDERED: POTASSIUM CHLORIDE 10 MEQ CAPSULE.ER PO SCH (13:00)
[2019-03-06] MEDS: SUCRALFATE 1 GM TABLET PO SCH ×2 (14:01→17:17)
[2019-03-06] MEDS ORDERED: (PENDING PHARMACY ID) (Benztropine Mesylate [Benztropine Mesylate 0.5 Mg Tablet] 0.5 MG) PO SCH (18:00)
[2019-03-06] MEDS ORDERED: GABAPENTIN 300 MG CAPSULE PO SCH (22:00)
[2019-03-06] MEDS ORDERED: ATORVASTATIN CALCIUM 40 MG TABLET PO SCH (22:00)
[2019-03-06] MEDS ORDERED: CETIRIZINE 10 MG TABLET PO SCH (22:00)
[2019-03-07] MEDS ORDERED: CEFTRIAXONE 1 GM/D5W RTU 1 GM/50 ML RTUPB IV ONE (06:20)
[2019-03-07 08:22] VITALS: BP 104/56
--- NOTE | 2019-03-07 08:29 | ER Document Report ---
Doctor's Note Notes: 03/07/19 08:29 Transport is here to take the patient. She is sleeping at this time. She appears quite comfortable. Her vital signs are stable. Patient is stable for transport.
[2019-03-07] MEDS: SUCRALFATE 1 GM TABLET PO SCH (08:34)
== END 2019-03-07 08:52 | disposition short-term general hospital (02) ==
LOC: ER 22:21
DX: N13.2 Hydronephrosis with renal and ureteral calculous obstruction (principal); N39.0 Urinary tract infection, site not specified; R31.9 Hematuria, unspecified; N83.201 Unspecified ovarian cyst, right side; R10.9 Unspecified abdominal pain; R11.10 Vomiting, unspecified; R32 Unspecified urinary incontinence; G20 Parkinson's disease; Z85.3 Personal history of malignant neoplasm of breast
CPT/HCPCS: 96376; 99285; 96375; 96365; 36415; 87040; 87086; 83690; 85025; 87088; 80053; 81001; 87186; A9270; J0696; J2270; J2405; J3490

== ENCOUNTER 2019-03-12 13:22 | Emergency (ER) | payer MEDICARE, OTHER ==
--- NOTE | 2019-03-12 13:34 | ER Document Report ---
ED General - General Stated Complaint: FALL/NECK INJURY Time Seen by Provider: 03/12/19 13:32 Primary Care Provider: RENEA ZAPATA MD [Primary Care Provider] - Follow up as needed Mode of Arrival: Medic Information source: Patient TRAVEL OUTSIDE OF THE [place] IN LAST 30 DAYS: No - HPI Notes: 74-year-old female with a history of Parkinson's presents via EMS for evaluation after falling last night, states she was getting out of her chair and fell, un witnessed event. Daughter heard two thumps last night. Patient was not having any pain until this morning. Patient reports lower back, neck pain, headache and left shoulder pain. Patient states she is on an antibiotic for UTI, is unsure if she still has it or not. It has had episodes of syncopal events throughout the last 6 months, did have her Parkinson medication switched which did help somewhat with her syncopal events. Denies fevers, chills, chest pain,palpitations, shortness of breath, dyspnea, nausea, vomiting, diarrhea, abdominal pain, hematuria,blurred vision, double vision, loss of vision, speech changes, LH, dizziness, wheezing, ST, URI, neck pain, weakness, bowel or bladder dysfunction, saddle anesthesia, numbness or tingling in bilateral upper or lower extremities equally, muscle paralysis, weakness in bilateral upper or lower extremities equally or rash. - Related Data Allergies/Adverse Reactions: No Known Allergies Allergy (Unverified 06/19/15 10:58) Past Medical History - General Information source: Patient - Social History Smoking Status: Unknown if Ever Smoked Family History: Reviewed & Not Pertinent, Hypertension - Past Medical History Cardiac Medical History: Reports: Hx Hypercholesterolemia Denies: Hx Congestive Heart Failure, Hx Heart Attack, Hx Hypertension Pulmonary Medical History: Reports: Hx Bronchitis - hx of, Hx Pneumonia - hx of Denies: Hx Asthma - sinuses, Hx COPD, Hx Tuberculosis Neurological Medical History: Reports: Hx Cerebrovascular Accident - Multiple TIAs. Denies: Hx Seizures Renal/ Medical History: Denies: Hx End Stage Renal Disease, Hx Kidney Stones, Hx Peritoneal Dialysis Malignancy Medical History: Reports: Hx Breast Cancer GI Medical History: Reports: Hx Gastroesophageal Reflux Disease, Hx Ulcer - No history of bleeding ulcers. Denies: Hx Cirrhosis Musculoskeletal Medical History: Reports Hx Arthritis, Denies Hx Multiple Sclerosis Psychiatric Medical History: Denies: Hx Bipolar Disorder, Hx Depression, Hx Schizophrenia Past Surgical History: Reports: Hx Breast Surgery - Right lumpectomy, Other - Port-A-Cath - Immunizations Hx Diphtheria, Pertussis, Tetanus Vaccination: No Review of Systems - Review of Systems Constitutional: No symptoms reported EENT: No symptoms reported Cardiovascular: No symptoms reported Respiratory: No symptoms reported Gastrointestinal: No symptoms reported Genitourinary: Other - UTI Female Genitourinary: No symptoms reported Musculoskeletal: See HPI Skin: No symptoms reported Hematologic/Lymphatic: No symptoms reported Neurological/Psychological: No symptoms reported Physical Exam - Vital signs Vitals: Temp Pulse Resp BP 98.9 F 95 16 125/61 03/12/19 13:40 03/12/19 13:40 03/12/19 13:40 03/12/19 13:40 - Notes Notes: PHYSICAL EXAMINATION: GENERAL: Well-appearing, well-nourished and in no acute distress. HEAD: Atraumatic, normocephalic. EYES: Pupils equal round and reactive to light, extraocular movements intact, conjunctiva are normal. ENT: Nares patent, oropharynx clear without exudates. Moist mucous membranes. NECK: Normal range of motion, supple without lymphadenopathy LUNGS: Breath sounds clear to auscultation bilaterally and equal. No wheezes rales or rhonchi. HEART: Regular rate and rhythm without murmurs ABDOMEN: Soft, nontender, nondistended abdomen. No guarding, no rebound. No masses appreciated. Female : deferred Musculoskeletal: Normal range of motion, no pitting or edema. No cyanosis. left pain with abduction and flexion. no pain with supination, pronation, extension. negative , [employer] + 2 BUE equally. APROM in shoulder. DTR +2 in BUE equally. Noted crepitus with APROM in elbow. slightly positive impingement sign all on le ft. No vascular compromise. Neck with full APROM, noted cervical spinal tenderness to C5-C6. No tenderness over clavicles or step off noted bilaterally. Strength 5 out of 5 in bilateral upper extremities equally. positive straight leg test bilaterally. limited hip rotation bilaterally due to lumbar pain. DTR +2 in BLE equally. Strength 5 out of 5 both distally and proximally to bilateral lower extremities normal motor and sensory function in BLE equally. Distal pulses + 2 BLE equally. Noted paraspinal tenderness near L2 and L3. Tenderness to right hip on palpation, strength 5 out of 5 in bilateral lower extremities equally. noted L1-L3 spinal tenderness. No CVA tenderness bilaterally. Femoral pulses + 2 bilaterally and equally. No abrasions, scars, lacerations, ecchymosis of any recent trauma. NEUROLOGICAL: Cranial nerves grossly intact. Normal speech, normal gait. Normal sensory, motor exams PSYCH: Normal mood, normal affect. SKIN: Warm, Dry, normal turgor, no rashes or lesions noted. Course - Re-evaluation Re-evalutation: 03/12/19 18:11 Afebrile vitals stable no distress, c-collar in place. Patient is a poor historian, daughter will be coming in the next "couple of hours" per patient. CBC negative for leukocytosis or anemia, CMP negative for hepatic dysfunction. Patient has baseline incontinence. she does wear a diaper due to urinary issues with Parkinson's. Patient denies any bowel or bladder dysfunction, no saddle anesthesia. Patient reports pain in the lower back, cervical spine. Attempt for urinalysis, patient straight cath, no urine obtained from straight cath her PCT. CT readings delayed due to radiologist report, CT readings did come in approximately 1620, CT cervical spine, lumbar spine, right shoulder negative for any acute fracture, dislocation or soft tissue swelling. Discussed results with the patient, daughter present in the room, questions and concerns answered, conc erned about patient coming home due to her series of recent falls, feels that she does need to be placed in a rehab. Diet ordered for patient due to staying overnight. patient eating and drinking without any issues. consulted with social sciences instructor, Felix Washington did call and speak with patient. All the best approach for patient was to place on a social hold and have her reevaluated in the morning by social work for placement. Patient and daughter agree with this plan of care and felt it was appropriate. Disposition given to DENNYS Rider at 0810 at bedside - Vital Signs Vital signs: Temp Pulse Resp BP Pulse Ox 99.3 F 87 20 143/67 H 93 03/13/19 06:47 03/13/19 06:47 03/13/19 06:47 03/13/19 06:47 03/13/19 06:47 - Laboratory Result Diagrams: 03/12/19 14:40 03/12/19 14:40 Laboratory results interpreted by me: 03/12/19 03/12/19 14:40 14:40 APTT 23.1 L Carbon Dioxide 31 H Total Protein 5.8 L Albumin 3.2 L Discharge - Discharge Clinical Impression: Neck pain, Lower back pain, Left shoulder pain Disposition: HOME, SELF-CARE Referrals: RENEA ZAPATA MD [Primary Care Provider] - Follow up as needed
[2019-03-12 15:04] LABS: ABSOLUTE EOSINOPHILS # (AUTO) 0.1 10^3/uL (0.0-0.6); ABSOLUTE LYMPHOCYTES (AUTO) 0.9 10^3/uL (0.5-4.7); ABSOLUTE MONOCYTES (AUTO) 0.5 10^3/uL (0.1-1.4); ABSOLUTE NEUT (AUTO) 3.2 10^3/uL (1.7-8.2); BASOPHILS % (AUTO) 0.7 % (0-2); HEMATOCRIT 36.9 % (36.0-47.0); HEMOGLOBIN 12.6 g/dL (12.0-15.5); LYMPHOCYTES % (AUTO) 18.9 % (13-45); MEAN CORPUSCULAR HEMOGLOBIN 32.5 pg (27.0-33.4); MEAN CORPUSCULAR HGB CONC 34.2 g/dL (32.0-36.0); MEAN CORPUSCULAR VOLUME 95 fl (80-97); MONOCYTES % (AUTO) 11.1 % (3-13); PLATELET COUNT 183 10^3/uL (150-450); RED BLOOD COUNT 3.88 10^6/uL (3.72-5.28); RED CELL DISTRIBUTION WIDTH 12.2 % (11.5-14.0); SEGMENTED NEUTROPHILS % (AUTO) 67.3 % (42-78); TOTAL CELLS COUNTED % (AUTO) 100 %; WHITE BLOOD COUNT 4.8 10^3/uL (4.0-10.5)
[2019-03-12 15:08] LABS: PROTHROMBIN TIME 13.2 SEC (11.4-15.4)
[2019-03-12 15:09] LABS: PARTIAL THROMBOPLASTIN TIME 23.1 SEC (23.5-35.8)
[2019-03-12 15:23] LABS: ALANINE AMINOTRANSFERASE 32 U/L (9-52); ALBUMIN 3.2 g/dL (3.5-5.0); ALKALINE PHOSPHATASE 84 U/L (38-126); ASPARTATE AMINO TRANSFERASE 26 U/L (14-36); BILIRUBIN,DIRECT 0.2 mg/dL (0.0-0.4); BILIRUBIN,TOTAL 0.7 mg/dL (0.2-1.3); BLOOD UREA NITROGEN 12 mg/dL (7-20); CALCIUM 8.5 mg/dL (8.4-10.2); CREATINE KINASE 60 U/L (30-135); GLUCOSE 91 mg/dL (75-110); POTASSIUM 3.7 mmol/L (3.6-5.0); TOTAL PROTEIN 5.8 g/dL (6.3-8.2)
[2019-03-12 15:28] LABS: ANION GAP 6 (5-19); CARBON DIOXIDE 31 mmol/L (22-30); CHLORIDE 103 mmol/L (98-107)
[2019-03-12 15:33] LABS: CREATINE KINASE MB 0.74 ng/mL (<4.55)
[2019-03-12 15:34] LABS: TROPONIN I < 0.012 ng/mL
--- NOTE | 2019-03-12 16:20 | RADIOLOGY REPORT (SQ) ---
EXAM DESCRIPTION: CT HEAD WITHOUT COMPLETED DATE/TIME: 03/12/2019 3:34 pm REASON FOR STUDY: fell out of chair last night, unwitnessed COMPARISON: 01/15/2018 TECHNIQUE: Axial images acquired through the brain without intravenous contrast. Images reviewed wit h bone, brain and subdural windows. Images stored on PACS. All CT scanners at this facility use dose modulation, iterative reconstruction, and/or weight based d osing when appropriate to reduce radiation dose to as low as reasonably achievable (ALARA). [facility]: Dose Right [facility]: CareDose [facility]: Dose Right [facility]: Teradose 4D [facility]: [email or web address] RADIATION DOSE: CT Rad equipment meets quality standard of care and radiation dose reduction techniq ues were employed. CTDIvol: 53.2 mGy. DLP: 1070 mGy-cm.. LIMITATIONS: None. FINDINGS: VENTRICLES: Normal size and contour. CEREBRUM: No hemorrhage. No midline shift. Stable appearance of the white matter. No evidence for ac leo infarction. CEREBELLUM: No masses. No hemorrhage. No alteration of density. No evidence for acute infarction. EXTRA-AXIAL SPACES: No fluid collections. ORBITS AND GLOBE: No intra- or extraconal masses. Normal contour of globe without masses. CALVARIUM: No fracture. PARANASAL SINUSES: No fluid or mucosal thickening. SOFT TISSUES: No mass or hematoma. OTHER: No other significant finding. IMPRESSION: NO ACUTE INTRACRANIAL FINDINGS. EVIDENCE OF ACUTE STROKE: NO. TECHNICAL DOCUMENTATION: JOB ID: [id number] [id number] Quality ID # [id number]: Final reports with documentation of one or more dose reduction techniques (e.g., Au tomated exposure control, adjustment of the mA and/or kV according to patient size, use of iterative reconstruction technique) 2010 [employer]- All Rights Reserved Reading location - IP/workstation name: [employer]
--- NOTE | 2019-03-12 16:23 | RADIOLOGY REPORT (SQ) ---
EXAM DESCRIPTION: CT CERVICAL SPINE WITHOUT COMPLETED DATE/TIME: 03/12/2019 3:34 pm REASON FOR STUDY: fell out of chair last night, unwitnessed COMPARISON: None. TECHNIQUE: Axial images acquired through the cervical spine without intravenous contrast. Images re viewed with lung, soft tissue and bone windows. Reconstructed coronal and sagittal MPR images review ed. Images stored on PACS. All CT scanners at this facility use dose modulation, iterative reconstruction, and/or weight based d osing when appropriate to reduce radiation dose to as low as reasonably achievable (ALARA). [facility]: Dose Right [facility]: CareDose [facility]: Dose Right [facility]: Teradose 4D [facility]: [employer] RADIATION DOSE: CT Rad equipment meets quality standard of care and radiation dose reduction techniq ues were employed. CTDIvol: 15.8 mGy. DLP: 297 mGy-cm. mGy. LIMITATIONS: None. FINDINGS: ALIGNMENT: Anatomic. MINERALIZATION: Normal. VERTEBRAL BODIES: No fractures or dislocation. DISCS: Multilevel disc space narrowing with osteophytes. FACETS, LATERAL MASSES, POSTERIOR ELEMENTS: Facet arthropathy. No fractures. No dislocation. No ac leo findings. HARDWARE: None in the spine. VISUALIZED RIBS: No fractures. LUNG APICES AND SOFT TISSUES: No significant or acute findings. OTHER: No other significant finding. IMPRESSION: CHRONIC DEGENERATIVE CHANGES. NO ACUTE FINDINGS. TECHNICAL DOCUMENTATION: JOB ID: [id number] Quality ID # [id number]: Final reports with documentation of one or more dose reduction techniques (e.g., Au tomated exposure control, adjustment of the mA and/or kV according to patient size, use of iterative reconstruction technique) 2010 [employer]- All Rights Reserved Reading location - IP/workstation name: [email or web address]
--- NOTE | 2019-03-12 16:26 | RADIOLOGY REPORT (SQ) ---
EXAM DESCRIPTION: CT LUMBAR SPINE WITHOUT COMPLETED DATE/TIME: 03/12/2019 3:34 pm REASON FOR STUDY: fell out of chair last night, unwitnessed COMPARISON: None. TECHNIQUE: Axial images acquired through the lumbar spine without intravenous contrast. Images revi ewed with lung, soft tissue and bone windows. Reconstructed coronal and sagittal MPR images reviewed . All images stored on PACS. All CT scanners at this facility use dose modulation, iterative reconstruction, and/or weight based d osing when appropriate to reduce radiation dose to as low as reasonably achievable (ALARA). [facility]: Dose Right [facility]: CareDose [facility]: Dose Right [facility]: Teradose 4D [facility]: [employer] RADIATION DOSE: mGy. LIMITATIONS: None. FINDINGS: SEGMENTATION: Normal. No transitional anatomy. ALIGNMENT: Normal. VERTEBRAL BODIES: No fractures. No dislocation. No acute findings. DISCS: No significant extrusions. Mild annular bulging at L3-L4, L4-L5 and L5-S1. PEDICLES, TRANSVERSE PROCESSES: No fractures. No dislocation. No acute findings. FACETS, POSTERIOR ELEMENTS: No fractures. No dislocation. No spinal stenosis. HARDWARE: None in the spine. VISUALIZED RIBS: No fractures. SOFT TISSUES: No significant or acute finding in adjacent soft tissues. OTHER: No other significant finding. IMPRESSION: Mild degenerative changes. No acute findings. TECHNICAL DOCUMENTATION: JOB ID: [id number] Quality ID # [id number]: Final reports with documentation of one or more dose reduction techniques (e.g., Au tomated exposure control, adjustment of the mA and/or kV according to patient size, use of iterative reconstruction technique) 2010 [employer]- All Rights Reserved Reading location - IP/workstation name: [email or web address]
--- NOTE | 2019-03-12 16:30 | RADIOLOGY REPORT (SQ) ---
EXAM DESCRIPTION: CHEST SINGLE VIEW COMPLETED DATE/TIME: 03/12/2019 2:42 pm REASON FOR STUDY: fall with syncopal event COMPARISON: 12/11/2018 EXAM PARAMETERS: NUMBER OF VIEWS: One view. TECHNIQUE: Single frontal radiographic view of the chest acquired. RADIATION DOSE: NA LIMITATIONS: None. FINDINGS: LUNGS AND PLEURA: No opacities, masses or pneumothorax. No pleural effusion. MEDIASTINUM AND HILAR STRUCTURES: No masses. Contour normal. HEART AND VASCULAR STRUCTURES: Heart normal in size. Normal vasculature. BONES: No acute findings. HARDWARE: Injection port on the left. OTHER: No other significant finding. IMPRESSION: NO ACUTE RADIOGRAPHIC FINDING IN THE CHEST. TECHNICAL DOCUMENTATION: JOB ID: [id number] [employer]- All Rights Reserved Reading location - IP/workstation name: [email or web address]
--- NOTE | 2019-03-12 16:30 | RADIOLOGY REPORT (SQ) ---
EXAM DESCRIPTION: SHOULDER LEFT 2 OR MORE VIEWS COMPLETED DATE/TIME: 03/12/2019 2:42 pm REASON FOR STUDY: fell out of chair last night, unwitnessed COMPARISON: None. NUMBER OF VIEWS: Three views. TECHNIQUE: Internal rotation, external rotation, and Y view images acquired of the left shoulder. LIMITATIONS: None. FINDINGS: MINERALIZATION: Normal. BONES: No acute fracture. No worrisome bone lesions. JOINTS: No dislocation. VISUALIZED LUNGS AND RIBS: No pneumothorax. No rib fracture. SOFT TISSUES: No radiopaque foreign body. OTHER: No other significant finding. IMPRESSION: NEGATIVE STUDY OF THE LEFT SHOULDER. NO RADIOGRAPHIC EVIDENCE OF ACUTE INJURY. TECHNICAL DOCUMENTATION: JOB ID: [id number] [employer]- All Rights Reserved Reading location - IP/workstation name: [email or web address]
--- NOTE | 2019-03-12 17:36 | RADIOLOGY REPORT (SQ) ---
EXAM DESCRIPTION: HIP RIGHT AP/LATERAL COMPLETED DATE/TIME: 03/12/2019 5:22 pm REASON FOR STUDY: complaining of R hip pain COMPARISON: 09/30/2017 NUMBER OF VIEWS: Two views. TECHNIQUE: AP pelvis and additional frog-leg view of the right hip. LIMITATIONS: None. FINDINGS: MINERALIZATION: Normal. RIGHT HIP: Arthroplasty in good position. There is no dislocation. No acute fracture. LEFT HIP: No fracture or dislocation. No worrisome bone lesions. PUBIS AND ISCHIUM: No fracture. PELVIS: No fracture. SACRUM: No fracture or dislocation. No worrisome bone lesions. LOWER LUMBAR SPINE: No fracture or dislocation. No worrisome bone lesions. No significant disc disea se. SOFT TISSUES: No findings. OTHER: No other significant finding. IMPRESSION: Right hip arthroplasty in good position. No acute finding. TECHNICAL DOCUMENTATION: JOB ID: [id number] [employer]- All Rights Reserved Reading location - IP/workstation name: [email or web address]
[2019-03-12] MEDS ORDERED: ACETAMINOPHEN 325 MG TABLET PO ONE (18:17)
[2019-03-12] MEDS ORDERED: OXYCODONE HCL IR 5 MG TABLET PO ONE (21:02)
[2019-03-12] MEDS ORDERED: ONDANSETRON 4 MG TAB.RAPDIS PO ONE (21:02)
--- NOTE | 2019-03-12 23:15 | EKG REPORT ---
SEVERITY:- NORMAL ECG - SINUS RHYTHM : Confirmed by: Shaista Steen 12-Mar-2019 23:14:19
[2019-03-13] MEDS ORDERED: OXYCODONE HCL IR 5 MG TABLET PO ONE (03:30)
[2019-03-13] MEDS ORDERED: (PENDING PHARMACY ID) (Acetaminophen [Tylenol Extra Strength 500 Mg Tablet] 1 TAB) PO PRN (09:12)
[2019-03-13] MEDS ORDERED: LIDOCAINE 5% (700 MG) TRANSDERMAL ADH..PATCH TP ONE (09:21)
[2019-03-13] MEDS: BENZTROPINE MESYLATE 1 MG TABLET PO SCH ×2 (09:34→22:10)
[2019-03-13] MEDS ORDERED: (PENDING PHARMACY ID) (Potassium Chloride [K-Tab Er] 20 MEQ) PO SCH (10:00)
[2019-03-13] MEDS ORDERED: CETIRIZINE 10 MG TABLET PO SCH (10:00)
[2019-03-13] MEDS ORDERED: POTASSIUM CHLORIDE 10 MEQ CAPSULE.ER PO SCH (10:00)
[2019-03-13] MEDS ORDERED: (PENDING PHARMACY ID) (Benztropine Mesylate [Benztropine Mesylate 0.5 Mg Tablet] 0.5 MG) PO SCH (10:00)
[2019-03-13] MEDS ORDERED: ASPIRIN 81 MG TABLET, CHEWABLE PO SCH (10:00)
--- NOTE | 2019-03-13 10:12 | ER Document Report ---
Doctor's Note Notes: 03/13/19 10:12 74-year-old female presenting with her daughter for multiple falls. Imaging and labs as recorded. Family is requesting a facility secondary to multiple frequent falls. Behavioral health and social work are involved in the case. 03/13/19 13:24 Patient has a bed ready for tomorrow morning at [facility].
[2019-03-13] MEDS: AMANTADINE HCL 100 MG CAPSULE PO SCH ×2 (10:20→18:00)
[2019-03-13] MEDS: SUCRALFATE 1 GM TABLET PO SCH ×4 (10:20→22:10)
[2019-03-13] MEDS ORDERED: ACETAMINOPHEN 325 MG TABLET PO PRN (10:30)
[2019-03-13] MEDS ORDERED: ATORVASTATIN CALCIUM 40 MG TABLET PO SCH (22:00)
[2019-03-13] MEDS ORDERED: GABAPENTIN 300 MG CAPSULE PO SCH (22:00)
[2019-03-14 09:25] VITALS: BP 146/60
== END 2019-03-14 09:25 | disposition home or self-care (01) ==
LOC: ER 13:22
DX: M54.2 Cervicalgia (principal); M54.5 Low back pain; M25.512 Pain in left shoulder; R51 Headache; W07.XXXA Fall from chair, initial encounter; G20 Parkinson's disease; R55 Syncope and collapse; N39.0 Urinary tract infection, site not specified; Z79.899 Other long term (current) drug therapy; R32 Unspecified urinary incontinence
CPT/HCPCS: 93005; 36415; 82553; 82550; 85025; 85610; 85730; 80053; 84484; 71045; 73502; 73030; 70450; 72125; 72131; 93010; A9270 ×12; 99284; J3490; S0119

== ENCOUNTER 2019-06-19 10:32 | Observation (INO) | payer MEDICARE, OTHER ==
--- NOTE | 2019-06-19 11:12 | ER Document Report ---
ED General - General Chief Complaint: Syncope Stated Complaint: BLOOD PRESSURE ISSUE Time Seen by Provider: 06/19/19 11:07 Primary Care Provider: RENEA ZAPATA MD [Primary Care Provider] - Follow up as needed TRAVEL OUTSIDE OF THE [place] IN LAST 30 DAYS: Yes - HPI Notes: Patient presents after syncopal episode. She has a history of Parkinson's disease and probably 3 weeks ago she was started on carbidopa levodopa. In the past they state this medication use to cause her have syncopal episodes. When she has had them in the past her confusion phase lasted only approximately 15 minutes. Today when she has single episode she was confused and mildly responsive for over an hour. She has not had recent fevers or illnesses she is being treated for urinary tract infection with antibiotics. She denies any chest pain shortness of breath at this time. She is back to normal mental baseline she is alert oriented x3. - Related Data Allergies/Adverse Reactions: No Known Allergies Allergy (Verified 06/19/19 10:55) Home Medications: carvidopa, asa, atorvastatin,benztropine, gabapentin, nitrofurantoin, potassiu,, tylenol, zantac Past Medical History - Social History Smoking Status: Former Smoker Chew tobacco use (# tins/day): No Frequency of alcohol use: None Drug Abuse: None Family History: Reviewed & Not Pertinent, Hypertension Patient has suicidal ideation: No Patient has homicidal ideation: No - Past Medical History Cardiac Medical History: Reports: Hx Hypercholesterolemia Denies: Hx Congestive Heart Failure, Hx Heart Attack, Hx Hypertension Pulmonary Medical History: Reports: Hx Bronchitis - hx of, Hx Pneumonia - hx of Denies: Hx Asthma - sinuses, Hx COPD, Hx Tuberculosis Neurological Medical History: Reports: Hx Cerebrovascular Accident - Multiple TIAs, Hx Parkinson's Disease. Denies: Hx Seizures Renal/ Medical History: Denies: Hx End Stage Renal Disease, Hx Kidney Stones, Hx Peritoneal Dialysis Malignancy Medical History: Reports: Hx Breast Cancer GI Medical History: Reports: Hx Gastroesophageal Reflux Disease, Hx Ulcer - No history of bleeding ulcers. Denies: Hx Cirrhosis Musculoskeletal Medical History: Reports Hx Arthritis, Denies Hx Multiple Sclerosis Psychiatric Medical History: Denies: Hx Bipolar Disorder, Hx Depression, Hx Schizophrenia Past Surgical History: Reports: Hx Breast Surgery - Right lumpectomy, Other - Port-A-Cath - Immunizations Hx Diphtheria, Pertussis, Tetanus Vaccination: No Review of Systems - Review of Systems Constitutional: No symptoms reported EENT: No symptoms reported Cardiovascular: No symptoms reported Respiratory: No symptoms reported Gastrointestinal: No symptoms reported Genitourinary: No symptoms reported Female Genitourinary: No symptoms reported Musculoskeletal: No symptoms reported Skin: No symptoms reported Hematologic/Lymphatic: No symptoms reported Neurological/Psychological: See HPI Physical Exam - Vital signs Vitals: Resp Pulse Ox 16 100 06/19/19 10:39 06/19/19 10:39 - General General appearance: Appears well, Alert - HEENT Head: Normocephalic, Atraumatic Eyes: Normal Conjunctiva: Normal Extraocular movements intact: Yes Pupils: PERRL - Respiratory Respiratory status: No respiratory distress Chest status: Nontender Breath sounds: Normal Chest palpation: Normal - Cardiovascular Rhythm: Regular Heart sounds: Normal auscultation Murmur: No - Abdominal Inspection: Normal Distension: No distension Bowel sounds: Normal Tenderness: Nontender - Back Back: Normal - Neurological Neuro grossly intact: Yes Cognition: Normal Orientation: AAOx4 Speech: Normal Cranial nerves: Normal Cerebellar coordination: Normal Course - Re-evaluation Re-evalutation: 06/19/19 11:11 Well-appearing patient in normal mental baseline with no complaints at this time. She had a syncopal episode while taking a bowel movement today did not fall the toilet and it was by her side. No recent fevers or illnesses no black or red stools. She denies any chest pain or shortness of breath. Per EMS she was hypotensive upon arrival. Her signs and symptoms are consistent with a vasovagal episode. Will observe patient. Half liter fluid was provided. She is normotensive at this time. EKG pending. Based on physical and history not feel other labs or CT imaging is warranted. Of note, she is on carbidopa levodopa and states that in the past this is made her have syncopal episodes. She is restarted this medication approximately 4 months ago. Although this could be a reason she had a single episode occurred while she is having a bowel movement is most likely due to vasovagal episode. I do not hear any murmurs friction rub or gallops on auscultation of her heart 06/19/19 15:08 Admit for syncope versus seizure. 06/19/19 15:08 - Vital Signs Vital signs: Temp Pulse Resp BP Pulse Ox 97.2 F 88 16 127/59 H 97 06/19/19 10:42 06/19/19 10:42 06/19/19 12:46 06/19/19 12:46 06/19/19 12:46 - Laboratory Result Diagrams: 06/19/19 13:48 06/19/19 13:48 Laboratory results interpreted by me: 06/19/19 06/19/19 13:48 13:48 Lymph % (Auto) 7.7 L Seg Neutrophils % 87.2 H BUN 22 H Discharge - Discharge Clinical Impression: Syncope Qualifiers: Syncope type: unspecified Qualified Code(s): R55 - Syncope and collapse Condition: Good Disposition: ADMITTED OBSERVATION Admitting Provider: Rober (Hospitalist) Unit Admitted: Telemetry Referrals: RENEA ZAPATA MD [Primary Care Provider] - Follow up as needed
--- NOTE | 2019-06-19 12:42 | EKG REPORT ---
SEVERITY:- NORMAL ECG - SINUS RHYTHM : Confirmed by: Jesus Manuel Sosa MD 19-Jun-2019 12:41:29
[2019-06-19 13:59] LABS: ABSOLUTE LYMPHOCYTES (AUTO) 0.6 10^3/uL (0.5-4.7); ABSOLUTE MONOCYTES (AUTO) 0.3 10^3/uL (0.1-1.4); ABSOLUTE NEUT (AUTO) 6.3 10^3/uL (1.7-8.2); BASOPHILS % (AUTO) 0.4 % (0-2); EOSINOPHILS % (AUTO) 0.2 % (0-6); HEMOGLOBIN 13.9 g/dL (12.0-15.5); LYMPHOCYTES % (AUTO) 7.7 % (13-45); MEAN CORPUSCULAR HEMOGLOBIN 32.6 pg (27.0-33.4); MEAN CORPUSCULAR VOLUME 96 fl (80-97); MONOCYTES % (AUTO) 4.5 % (3-13); PLATELET COUNT 194 10^3/uL (150-450); RED BLOOD COUNT 4.28 10^6/uL (3.72-5.28); SEGMENTED NEUTROPHILS % (AUTO) 87.2 % (42-78); TOTAL CELLS COUNTED % (AUTO) 100 %; WHITE BLOOD COUNT 7.2 10^3/uL (4.0-10.5)
[2019-06-19 14:28] LABS: ALBUMIN 4.2 g/dL (3.5-5.0); ALKALINE PHOSPHATASE 105 U/L (38-126); ANION GAP 7 (5-19); ASPARTATE AMINO TRANSFERASE 20 U/L (14-36); BILIRUBIN,DIRECT 0.1 mg/dL (0.0-0.4); BILIRUBIN,TOTAL 0.7 mg/dL (0.2-1.3); BLOOD UREA NITROGEN 22 mg/dL (7-20); CALCIUM 9.3 mg/dL (8.4-10.2); CARBON DIOXIDE 29 mmol/L (22-30); CHLORIDE 106 mmol/L (98-107); GLUCOSE 102 mg/dL (75-110); POTASSIUM 4.2 mmol/L (3.6-5.0); TOTAL PROTEIN 7.1 g/dL (6.3-8.2)
[2019-06-19] MEDS ORDERED: ACETAMINOPHEN 325 MG TABLET PO PRN (16:09)
[2019-06-19] MEDS ORDERED: ONDANSETRON HCL INJ/PF 4 MG/2 ML SDV IV PRN (16:09)
[2019-06-19] MEDS ORDERED: TEMAZEPAM 7.5 MG CAPSULE PO PRN (16:09)
[2019-06-19] MEDS ORDERED: IPRATROPIUM/ALBUTEROL 0.5-2.5 MG/3 ML AMPUL NEB PRN (16:09)
[2019-06-19] MEDS ORDERED: NORMAL SALINE 1000 ML 1,000 ML IV PRN (16:09)
[2019-06-19] MEDS ORDERED: MORPHINE SULFATE 10 MG/ML INJ IV PRN (16:13)
[2019-06-19] MEDS ORDERED: LORAZEPAM INJ 2 MG/1 ML VIAL IV PRN (16:14)
[2019-06-19] MEDS ORDERED: LORAZEPAM INJ 2 MG/1 ML VIAL IV ONE (16:45)
[2019-06-19] MEDS: PANTOPRAZOLE SODIUM 40 MG TABLET.DR PO SCH (16:52)
[2019-06-19] MEDS: DOCUSATE SODIUM 100 MG CAPSULE PO SCH (17:51)
--- NOTE | 2019-06-19 18:53 | PDOC H&P ---
History of Present Illness Admission Date/PCP: 06/19/19 15:20 RENEA ZAPATA MD History of Present Illness: JANETH MIRANDA is a 74 year old female past medical history of orthostatic hypot ension, recurrent syncope, Parkinson's disease, hyperlipidemia brought to ED by EMS after syncopal episode. Patient has history of recurrent syncopes, orthostatic hypotension likely due to complication of her underlying Parkinson disease and adverse effect of antiparkinson meds. Patient is on carbidopa levodopa which was held due to recurrent syncopes and restarted 3 weeks ago due to worsening Parkinson symptoms. Patient living at home has an aid , who witnessed patient having a syncope, in t he past whenever she would have a syncope she would recover within 15 minutes but this time it took her longer than that. Patient was also reported to be confused post syncope. This time syncopal episode happened when patient was in the restroom and having a bowel movement, and had a syncope however did not fall or did not have any trauma able or by her side. Denies any fever, any recent illness, any shortness of breath, chest pain, nausea, vomiting, diarrhea, constipation or any urinary symptoms. In ED CBC CMP within normal limits, and EKG with no acute changes. Past Medical History Cardiac Medical History: Reports: Hyperlipidema Denies: Congestive Heart Failure, Myocardial Infarction, Hypertension Pulmonary Medical History: Reports: Bronchitis - hx of, Pneumonia - hx of Denies: Asthma - sinuses, Chronic Obstructive Pulmonary Disease (COPD), Tuberculosis Neurological Medical History: Denies: Seizures Renal/ Medical History: Denies: End Stage Renal Disease Malignancy Medical History: Reports: Breast Cancer GI Medical History: Reports: Gastroesophageal Reflux Disease Denies: Cirrhosis Musculoskeltal Medical History: Reports: Arthritis Psychiatric Medical History: Denies: Bipolar Disorder, Depression Hematology: Denies: Anemia, Bleeding Tendencies Past Surgical History Past Surgical History: Reports: Other - Port-A-Cath Social History Smoking Status: Former Smoker Electronic Cigarette use?: No Frequency of Alcohol Use: None Hx Recreational Drug Use: No Drugs: None Hx Prescription Drug Abuse: No - Advance Directive Resuscitation Status: Full Code Family History Family History: Reviewed & Not Pertinent, Hypertension Parental Family History Reviewed: Yes Children Family History Reviewed: Yes Sibling(s) Family History Reviewed.: Yes Medication/Allergy Allergies/Adverse Reactions: No Known Allergies Allergy (Unverified 06/19/19 16:30) Review of Systems Review of Systems: as per hpi Physical Exam Vital Signs: Temp Pulse Resp BP Pulse Ox 98.1 F 99 16 132/68 H 96 06/19/19 17:54 06/19/19 17:54 06/19/19 17:54 06/19/19 17:54 06/19/19 17:54 Intake & Output 06/18/19 06/19/19 06/20/19 06:59 06:59 06:59 Intake Total 0 Output Total 0 Balance 0 Weight 76.8 kg General appearance: PRESENT: no acute distress, well-developed, well-nourished Head exam: PRESENT: atraumatic, normocephalic Neck exam: ABSENT: carotid bruit, JVD, lymphadenopathy, thyromegaly Respiratory exam: PRESENT: clear to auscultation nakul. ABSENT: rales, rhonchi, wheezes Cardiovascular exam: PRESENT: RRR. ABSENT: diastolic murmur, rubs, systolic murmur GI/Abdominal exam: PRESENT: normal bowel sounds, soft. ABSENT: distended, guarding, mass, organolmegaly, rebound, tenderness Neurological exam: PRESENT: alert, awake, oriented to person, oriented to place, oriented to time, oriented to situation, CN II-XII grossly intact, motor sensory deficit, other - Upper and lower extremity spasticity. Psychiatric exam: PRESENT: flat affect Results Laboratory Results: 06/19/19 13:48 06/19/19 13:48 06/19/19 06/19/19 13:48 13:48 WBC 7.2 RBC 4.28 Hgb 13.9 Hct 41.0 MCV 96 MCH 32.6 MCHC 34.0 RDW 13.0 Plt Count 194 Seg Neutrophils % 87.2 H Sodium 142.1 Potassium 4.2 Chloride 106 Carbon Dioxide 29 Anion Gap 7 BUN 22 H Creatinine 0.63 Est GFR ( Amer) > 60 Glucose 102 Calcium 9.3 Total Bilirubin 0.7 AST 20 Alkaline Phosphatase 105 Total Protein 7.1 Albumin 4.2 Assessment and Plan - Diagnosis (1) Recurrent syncope Is this a current diagnosis for this admission?: Yes Plan: Likely due to postural hypotension due to complication of underlying Parkinson disease and resumption of antiparkinson meds. Patient stating that she does not want to continue levodopa carbidopa anymore. Admit to telemetry, cautious volume resuscitation, orthostatic vitals, seizure, fall and aspiration precautions. Consult PT OT. (2) Parkinson disease Is this a current diagnosis for this admission?: Yes Plan: Home meds are levodopa carbidopa and amantadine. Levodopa carbidopa was stopped by PCP due to recurrent syncope however it was restarted 3 weeks ago. Patient is stating that she does not want to resume her levodopa carbidopa anymore. Restart amantadine. Fall and seizure precaution. Consult PT. Patient and family are arranging for her to be transferred to assisted living at [facility], however they were told that she would not be able to go there until next Monday. We will consult farm planner if we could expedite her transfer to [facility]. (3) Hyperlipidemia Qualifiers: Is this a current diagnosis for this admission?: Yes Plan: Restart home meds. (4) Orthostatic hypotension Is this a current diagnosis for this admission?: Yes Plan: Likely due to complication of antihypertensive meds. Hold carbidopa levodopa. Plan as per #1.
[2019-06-19] MEDS: AMANTADINE 10 MG/ML SYRUP 60 ML PO SCH (21:19)
[2019-06-19] MEDS: FAMOTIDINE 20 MG TABLET PO SCH (22:49)
[2019-06-19] MEDS: HEPARIN SOD (PORCINE) 5,000 UNIT/ML 1 ML VIAL SUBCUT SCH (22:52)
[2019-06-20] MEDS ORDERED: CARBIDOPA/LEVODOPA 10-100 MG TABLET PO ONE (00:28)
[2019-06-20] MEDS ORDERED: CARBIDOPA/LEVODOPA 10-100 MG TABLET ONE (01:11)
[2019-06-20] MEDS: PANTOPRAZOLE SODIUM 40 MG TABLET.DR PO SCH ×2 (06:43→17:19)
[2019-06-20] MEDS: HEPARIN SOD (PORCINE) 5,000 UNIT/ML 1 ML VIAL SUBCUT SCH ×3 (06:44→23:04)
[2019-06-20] MEDS ORDERED: (PENDING PHARMACY ID) (Benztropine Mesylate [Benztropine Mesylate 0.5 Mg Tablet] 0.5 MG) PO SCH (10:00)
[2019-06-20] MEDS: DOCUSATE SODIUM 100 MG CAPSULE PO SCH ×2 (10:43→17:21)
[2019-06-20] MEDS: FAMOTIDINE 20 MG TABLET PO SCH ×2 (10:53→23:03)
[2019-06-20] MEDS: POTASSIUM CHLORIDE 10 MEQ CAPSULE.ER PO SCH (10:53)
[2019-06-20] MEDS: ASPIRIN 81 MG TABLET, ENT COATED PO SCH (10:53)
[2019-06-20] MEDS: BENZTROPINE MESYLATE 1 MG TABLET PO SCH ×2 (10:53→17:19)
[2019-06-20] MEDS: SUCRALFATE 1 GM TABLET PO SCH ×2 (10:58→17:20)
[2019-06-20] MEDS: AMANTADINE 10 MG/ML SYRUP 60 ML PO SCH ×2 (11:03→23:06)
--- NOTE | 2019-06-20 12:17 | PDOC PROGRESS REPORT ---
Subjective Progress Note for:: 06/20/19 Subjective:: JANETH MIRANDA is a 74 year old female past medical history of orthostatic hypotension, recurrent syncope, Parkinson's disease, hyperlipidemia brought to ED by EMS after syncopal episode. Patient has history of recurrent syncopes, orthostatic hypotension likely due to complication of her underlying Parkinson disease and adverse effect of antiparkinson meds. Patient is on carbidopa levodopa which was held due to recurrent syncopes and restarted 3 weeks ago due to worsening Parkinson symptoms. Patient living at home has an aid , who witnessed patient having a syncope, in the past whenever she would have a syncope she would recover within 15 minutes but this time it took her longer than that. Patient was also reported to be confused post syncope. This time syncopal episode happened when patient was in the restroom and having a bowel movement, and had a syncope however did not fall or did not have any trauma able or by her side. Denies any fever, any recent illness, any shortness of breath, chest pain, nausea, vomiting, diarrhea, constipation or any urinary symptoms. In ED CBC CMP within normal limits, and EKG with no acute changes. 06/20/2019. No acute events overnight. Patient denies any fever, chills, nausea, vomiting, diarrhea, constipation or any urinary symptoms. Patient's daughter at bedside stating that she was seen by her neurologist 3 weeks ago and she has been started on tapered dose of levodopa carbidopa. She supposed to be taking levodopa carbidopa 100 mg p.o. twice daily until Monday and then will be switched to 100 mg p.o. daily for another 3 days and then stop completely. Meanwhile daughters try to get her to go to rehab due to her overall worsening ADLs. Reason For Visit: SYNCOPE Physical Exam Vital Signs: Temp Pulse Resp BP Pulse Ox 97.4 F 92 20 141/56 H 99 06/20/19 09:16 06/20/19 09:16 06/20/19 09:16 06/20/19 09:16 06/20/19 09:16 Intake & Output 06/19/19 06/20/19 06/21/19 06:59 06:59 06:59 Intake Total 580 Output Total 0 Balance 580 Weight 76.9 kg General appearance: PRESENT: no acute distress, well-developed, well-nourished Respiratory exam: PRESENT: clear to auscultation nakul. ABSENT: rales, rhonchi, wheezes Cardiovascular exam: PRESENT: RRR. ABSENT: diastolic murmur, rubs, systolic murmur GI/Abdominal exam: PRESENT: normal bowel sounds, soft. ABSENT: distended, guarding, mass, organolmegaly, rebound, tenderness Neurological exam: PRESENT: alert, awake, oriented to person, oriented to place, oriented to time, oriented to situation, CN II-XII grossly intact, other - Cogwheel rigidity bilateral upper extremity, masked faces.. ABSENT: motor sensory deficit Results Laboratory Results: 06/19/19 13:48 06/19/19 13:48 06/19/19 06/19/19 13:48 13:48 WBC 7.2 RBC 4.28 Hgb 13.9 Hct 41.0 MCV 96 MCH 32.6 MCHC 34.0 RDW 13.0 Plt Count 194 Seg Neutrophils % 87.2 H Sodium 142.1 Potassium 4.2 Chloride 106 Carbon Dioxide 29 Anion Gap 7 BUN 22 H Creatinine 0.63 Est GFR ( Amer) > 60 Glucose 102 Calcium 9.3 Total Bilirubin 0.7 AST 20 Alkaline Phosphatase 105 Total Protein 7.1 Albumin 4.2 Assessment and Plan - Diagnosis (1) Recurrent syncope Is this a current diagnosis for this admission?: Yes Plan: No recurrence. Vitals WNL. Likely due to postural hypotension due to complication of underlying advanced Parkinson disease and side effect of levodopa carbidopa. As per my conversation with the daughter who is at the bedside stating that recently she was seen by her neurologist and has been placed on a tapered dose of levodopa carbidopa, levodopa carbidopa has been causing her recurrent postural hypotension and syncope. Currently she is on 100 mg p.o. levodopa carbidopa twice a day until 08/2018. After that she was placed on 100 mg p.o. daily for another 3 days and stopped completely. Continue telemetry, cautious volume resuscitation, orthostatic vitals, seizure, fall and aspiration precautions. Consult PT OT. (2) Parkinson disease Is this a current diagnosis for this admission?: Yes Plan: Home meds are levodopa carbidopa and amantadine and benztropine. As per my conversation with the daughter who is at the bedside stating that recently she was seen by her neurologist and has been placed on a tapered dose of levodopa carbidopa, levodopa carbidopa has been causing her recurrent postural hypotension and syncope. Currently she is on 100 mg p.o. levodopa carbidopa twice a day until 08/2018. After that she was placed on 100 mg p.o. daily for another 3 days and stopped completely. Restart amantadine and benztropine. Restart levodopa carbidopa 100 mg p.o. twice daily until 06/2019 then transition to 100 mg p.o. daily for another 3 days. Fall and seizure precaution. Consult PT. Patient and family are arranging for her to be transferred to assisted living at [facility], however they were told that she would not be able to go there until next Monday. We will consult [employer] fire support planner if we could expedite her transfer to [facility]. (3) Hyperlipidemia Qualifiers: Is this a current diagnosis for this admission?: Yes Plan: Restart home meds. (4) Orthostatic hypotension Is this a current diagnosis for this admission?: Yes Plan: Likely due to complication of antihypertensive meds. Hold carbidopa levodopa. Plan as per #1.
[2019-06-20] MEDS: ACETAMINOPHEN SOLN 325 MG/10.15 ML UDCUP PO SCH ×2 (14:28→23:01)
[2019-06-20] MEDS: NITROFURANTOIN MONOHYD/M-CRYST 100 MG CAPSULE PO SCH (17:20)
[2019-06-20] MEDS: CARVEDILOL 3.125 MG TABLET PO SCH (17:20)
[2019-06-20] MEDS ORDERED: (PENDING PHARMACY ID) (Nitrofurantoin Macrocrystal [Macrodantin] 100 MG) PO SCH (18:00)
[2019-06-20] MEDS ORDERED: ATORVASTATIN CALCIUM 40 MG TABLET PO SCH (18:00)
[2019-06-20] MEDS ORDERED: ENTACAPONE PO SCH (18:00)
[2019-06-20] MEDS ORDERED: CARBIDOPA PO SCH (18:00)
[2019-06-20] MEDS ORDERED: LEVODOPA PO SCH (18:00)
[2019-06-20] MEDS ORDERED: [UNRECOGNIZED DRUG - OTHER] PO SCH (18:00)
[2019-06-20] MEDS ORDERED: GABAPENTIN 300 MG CAPSULE PO SCH (22:00)
[2019-06-21 03:29] VITALS: BP 138/62
[2019-06-21] MEDS: CARVEDILOL 3.125 MG TABLET PO SCH (06:38)
[2019-06-21] MEDS: ACETAMINOPHEN SOLN 325 MG/10.15 ML UDCUP PO SCH (06:38)
[2019-06-21] MEDS: PANTOPRAZOLE SODIUM 40 MG TABLET.DR PO SCH (06:39)
[2019-06-21] MEDS: HEPARIN SOD (PORCINE) 5,000 UNIT/ML 1 ML VIAL SUBCUT SCH (06:39)
[2019-06-21] MEDS: SUCRALFATE 1 GM TABLET PO SCH (07:55)
[2019-06-21] MEDS: NITROFURANTOIN MONOHYD/M-CRYST 100 MG CAPSULE PO SCH (07:55)
[2019-06-21] MEDS: DOCUSATE SODIUM 100 MG CAPSULE PO SCH (10:23)
[2019-06-21] MEDS: BENZTROPINE MESYLATE 1 MG TABLET PO SCH (10:24)
[2019-06-21] MEDS: POTASSIUM CHLORIDE 10 MEQ CAPSULE.ER PO SCH (10:25)
[2019-06-21] MEDS: FAMOTIDINE 20 MG TABLET PO SCH (10:25)
[2019-06-21] MEDS: AMANTADINE 10 MG/ML SYRUP 60 ML PO SCH (10:25)
[2019-06-21] MEDS: ASPIRIN 81 MG TABLET, ENT COATED PO SCH (10:25)
--- NOTE | 2019-06-24 14:25 | PDOC DISCHARGE SUMMARY ---
Impression - Admit/DC Date/PCP Admission Date/Primary Care Provider: 06/19/19 15:20 RENEA ZAPATA MD Discharge Date: 06/21/19 - Discharge Diagnosis (1) Recurrent syncope Is this a current diagnosis for this admission?: Yes (2) Parkinson disease Is this a current diagnosis for this admission?: Yes (3) Hyperlipidemia Is this a current diagnosis for this admission?: Yes (4) Orthostatic hypotension Is this a current diagnosis for this admission?: Yes - Additional Information Resuscitation Status: Full Code Discharge Diet: Regular Discharge Activity: Activity As Tolerated Referrals: RENEA ZAPATA MD [Primary Care Provider] - 07/02/19 9:30 am Home Medications: Acetaminophen [Tylenol] 200 mg PO Q8 06/19/19 Amantadine HCl [Amantadine] 100 mg PO BID 06/19/19 Aspirin [Ecotrin 81 mg EC Tablet] 81 mg PO DAILY 06/19/19 Atorvastatin Calcium [Lipitor 40 mg Tablet] 40 mg PO QPM 06/19/19 Benztropine Mesylate [Benztropine Mesylate 0.5 mg Tablet] 0.5 mg PO BID 06/19/19 Carbidopa/Levodopa/Entacapone [Carbidopa-Levodopa 100 mg-Enta] 1 each PO BID 06/19/19 Carbidopa/Levodopa/Entacapone [Carbidopa-Levodopa 100 mg-Enta] 1 each PO DAILY 06/19/19 Cetirizine HCl [Zyrtec] 10 mg PO QHS 06/19/19 Gabapentin [Neurontin 300 mg Capsule] 300 mg PO QHS 06/19/19 Nitrofurantoin Macrocrystal [Macrodantin] 100 mg PO BID 06/19/19 Potassium Chloride 20 meq PO DAILY 06/19/19 Sucralfate [Carafate 1 gm Tablet] 1 gm PO BID 06/19/19 History of Present Illiness History of Present Illness: JANETH MIRANDA is a 74 year old female past medical history of orthostatic hypotension, recurrent syncope, Parkinson's disease, hyperlipidemia brought to ED by EMS after syncopal episode. Patient has history of recurrent syncopes, orthostatic hypotension likely due to complication of her underlying Parkinson disease and adverse effect of antiparkinson meds. Patient is on carbidopa levodopa which was held due to recurrent syncopes and restarted 3 weeks ago due to worsening Parkinson symptoms. Patient living at home has an aid , who witnessed patient having a syncope, in the past whenever she would have a syncope she would recover within 15 minutes but this time it took her longer than that. Patient was also reported to be confused post syncope. This time syncopal episode happened when patient was in the restroom and having a bowel movement, and had a syncope however did not fall or did not have any trauma able or by her side. Denies any fever, any recent illness, any shortness of breath, chest pain, nausea, vomiting, diarrhea, constipation or any urinary symptoms. In ED CBC CMP within normal limits, and EKG with no acute changes. Hospital Course Hospital Course: (1) Recurrent syncope No recurrence. Vitals WNL. Likely due to postural hypotension due to complication of underlying advanced Parkinson disease and side effect of levodopa carbidopa. As per my conversation with the daughter who is at the bedside stating that recently she was seen by her neurologist and has been placed on a tapered dose of levodopa carbidopa. Levodopa carbidopa has been causing her recurrent postural hypotension and syncope. Currently she is on 100 mg p.o. levodopa carbidopa twice a day until 08/2018. After that she was placed on 100 mg p.o. daily for another 3 days and stopped completely. Was admitted to telemetry, cautious volume resuscitation, orthostatic vitals, seizure, fall and aspiration precautions and consulted PT OT. Patient did not have any recurrence of her syncope, presyncope or dizziness. Patient's family would like to discharge him to inpatient rehab however she did not qualify as she was admitted for only observation. (2) Parkinson disease Home meds are levodopa carbidopa and amantadine and benztropine. As per my conversation with the daughter who is at the bedside stating that recently she was seen by her neurologist and has been placed on a tapered dose of levodopa carbidopa. Levodopa carbidopa has been causing her recurrent postural hypotension and syncope. Currently she is on 100 mg p.o. levodopa carbidopa twice a day until 08/2018. After that she was placed on 100 mg p.o. daily for another 3 days and stopped completely. Restart amantadine and benztropine. Restart levodopa carbidopa 100 mg p.o. twice daily until 06/2019 then transition to 100 mg p.o. daily for another 3 days. Fall and seizure precaution. Consulted PT/OT. Patient and family are arranging for her to be transferred to assisted living at [facility], however they were told that she would not be able to go there until next Monday. I consulted systems requirements planner if we could expedite her transfer to [facility] but unfortunately she did not qualify for inpatient rehab at this point. Pt was discharged home with home health, home pt/ot and nursing aid. (3) Hyperlipidemia Restarted home meds. (4) Orthostatic hypotension Likely due to complication of antihypertensive meds. Plan as per #1. Physical Exam Vital Signs: Temp Pulse Resp BP Pulse Ox 98.7 F 85 16 138/62 H 96 06/21/19 12:41 06/21/19 12:41 06/21/19 12:41 06/21/19 12:41 06/21/19 12:41 General appearance: PRESENT: no acute distress, well-developed, well-nourished Respiratory exam: PRESENT: clear to auscultation nakul. ABSENT: rales, rhonchi, wheezes Cardiovascular exam: PRESENT: RRR. ABSENT: diastolic murmur, rubs, systolic murmur GI/Abdominal exam: PRESENT: normal bowel sounds, soft. ABSENT: distended, guarding, mass, organolmegaly, rebound, tenderness Extremities exam: ABSENT: calf tenderness, clubbing, pedal edema Neurological exam: PRESENT: alert, awake, oriented to person, oriented to place, oriented to time, oriented to situation, CN II-XII grossly intact, other - Cogwheel rigidity of bilateral elbows and wrists.. ABSENT: motor sensory deficit Results Laboratory Results: WBC 7.2 10^3/uL (4.0-10.5) 06/19/19 13:48 RBC 4.28 10^6/uL (3.72-5.28) 06/19/19 13:48 Hgb 13.9 g/dL (12.0-15.5) 06/19/19 13:48 Hct 41.0 % (36.0-47.0) 06/19/19 13:48 MCV 96 fl (80-97) 06/19/19 13:48 MCH 32.6 pg (27.0-33.4) 06/19/19 13:48 MCHC 34.0 g/dL (32.0-36.0) 06/19/19 13:48 RDW 13.0 % (11.5-14.0) 06/19/19 13:48 Plt Count 194 10^3/uL (150-450) 06/19/19 13:48 Lymph % (Auto) 7.7 % (13-45) L 06/19/19 13:48 [place] % (Auto) 4.5 % (3-13) 06/19/19 13:48 Eos % (Auto) 0.2 % (0-6) 06/19/19 13:48 Baso % (Auto) 0.4 % (0-2) 06/19/19 13:48 Absolute Neuts (auto) 6.3 10^3/uL (1.7-8.2) 06/19/19 13:48 Absolute Lymphs (auto) 0.6 10^3/uL (0.5-4.7) 06/19/19 13:48 Absolute Monos (auto) 0.3 10^3/uL (0.1-1.4) 06/19/19 13:48 Absolute Eos (auto) 0.0 10^3/uL (0.0-0.6) 06/19/19 13:48 Absolute Basos (auto) 0.0 10^3/uL (0.0-0.2) 06/19/19 13:48 Seg Neutrophils % 87.2 % (42-78) H 06/19/19 13:48 Sodium 142.1 mmol/L (137-145) 06/19/19 13:48 Potassium 4.2 mmol/L (3.6-5.0) 06/19/19 13:48 Chloride 106 mmol/L (98-107) 06/19/19 13:48 Carbon Dioxide 29 mmol/L (22-30) 06/19/19 13:48 Anion Gap 7 (5-19) 06/19/19 13:48 BUN 22 mg/dL (7-20) H 06/19/19 13:48 Creatinine 0.63 mg/dL (0.52-1.25) 06/19/19 13:48 Est GFR ( Amer) > 60 (>60) 06/19/19 13:48 Est GFR (MDRD) Non-Af > 60 (>60) 06/19/19 13:48 Glucose 102 mg/dL (75-110) 06/19/19 13:48 Calcium 9.3 mg/dL (8.4-10.2) 06/19/19 13:48 Total Bilirubin 0.7 mg/dL (0.2-1.3) 06/19/19 13:48 Direct Bilirubin 0.1 mg/dL (0.0-0.4) 06/19/19 13:48 Neonat Total Bilirubin Not Reportable 06/19/19 13:48 Neonat Direct Bilirubin Not Reportable 06/19/19 13:48 Neonat Indirect Bili Not Reportable 06/19/19 13:48 AST 20 U/L (14-36) 06/19/19 13:48 ALT 15 U/L (<35) 06/19/19 13:48 Alkaline Phosphatase 105 U/L (38-126) 06/19/19 13:48 Total Protein 7.1 g/dL (6.3-8.2) 06/19/19 13:48 Albumin 4.2 g/dL (3.5-5.0) 06/19/19 13:48 Stroke Is this a Stroke Patient?: No Acute Heart Failure - Is this a Heart Failure Patient?: No
== END 2019-06-21 13:14 | disposition home health service (06) ==
LOC: ER 10:32 → EH 15:20 → 5 17:41
PROVIDERS: ADMIT Internal Medicine; ATTEND Internal Medicine
DX: R55 Syncope and collapse (principal); I95.1 Orthostatic hypotension; G20 Parkinson's disease; E78.5 Hyperlipidemia, unspecified; Z79.82 Long term (current) use of aspirin; Z79.899 Other long term (current) drug therapy; Z87.891 Personal history of nicotine dependence; Z85.3 Personal history of malignant neoplasm of breast; Z82.49 Family history of ischemic heart disease and other diseases of the circulatory system; Z95.828 Presence of other vascular implants and grafts; Z86.73 Personal history of transient ischemic attack (TIA), and cerebral infarction without residual deficits
CPT/HCPCS: 93005; 99285; 96374; 36415; 85025; 80053; 93010; 97116; 97163; 97535; 97167; G0378 ×4; A9270 ×26; J1644 ×3; J2060; J3490 ×3; J7030; J8499

== ENCOUNTER 2019-12-07 12:32 | Emergency (ER) | payer MEDICARE, OTHER ==
[2019-12-07 13:25] LABS: ABSOLUTE EOSINOPHILS # (AUTO) 0.1 10^3/uL (0.0-0.6); ABSOLUTE LYMPHOCYTES (AUTO) 0.9 10^3/uL (0.5-4.7); ABSOLUTE MONOCYTES (AUTO) 0.4 10^3/uL (0.1-1.4); ABSOLUTE NEUT (AUTO) 3.6 10^3/uL (1.7-8.2); EOSINOPHILS % (AUTO) 1.5 % (0-6); HEMATOCRIT 38.9 % (36.0-47.0); HEMOGLOBIN 13.5 g/dL (12.0-15.5); LYMPHOCYTES % (AUTO) 18.3 % (13-45); MEAN CORPUSCULAR HEMOGLOBIN 33.8 pg (27.0-33.4); MEAN CORPUSCULAR HGB CONC 34.8 g/dL (32.0-36.0); MEAN CORPUSCULAR VOLUME 97 fl (80-97); PLATELET COUNT 194 10^3/uL (150-450); RED BLOOD COUNT 4.01 10^6/uL (3.72-5.28); RED CELL DISTRIBUTION WIDTH 12.3 % (11.5-14.0); SEGMENTED NEUTROPHILS % (AUTO) 71.2 % (42-78); TOTAL CELLS COUNTED % (AUTO) 100 %
--- NOTE | 2019-12-07 13:33 | RADIOLOGY REPORT (SQ) ---
EXAM DESCRIPTION: CHEST SINGLE VIEW IMAGES COMPLETED DATE/TIME: 12/07/2019 12:08 pm REASON FOR STUDY: weakness COMPARISON: 03/12/2019 EXAM PARAMETERS: NUMBER OF VIEWS: One view. TECHNIQUE: Single frontal radiographic view of the chest acquired. RADIATION DOSE: NA LIMITATIONS: None. FINDINGS: LUNGS AND PLEURA: No opacities, masses or pneumothorax. No pleural effusion. MEDIASTINUM AND HILAR STRUCTURES: No masses. Contour normal. HEART AND VASCULAR STRUCTURES: Heart normal in size. Normal vasculature. BONES: No acute findings. HARDWARE: Left MediPort catheter with tip in the upper SVC unchanged. OTHER: No other significant finding. IMPRESSION: NO ACUTE RADIOGRAPHIC FINDING IN THE CHEST. TECHNICAL DOCUMENTATION: JOB ID: [id number] 2010 [employer]- All Rights Reserved Reading location - IP/workstation name: [email or web address]
[2019-12-07 13:41] LABS: INTERNATIONAL RATION (INR) 0.98
[2019-12-07 13:45] LABS: APPEARANCE,URINE CLEAR; BILIRUBIN,URINE NEGATIVE (NEGATIVE); COLOR,URINE YELLOW; GLUCOSE, URINE NEGATIVE (NEGATIVE); KETONES,URINE NEGATIVE (NEGATIVE); PROTEIN,URINE NEGATIVE (NEGATIVE); URINE SPECIFIC GRAVITY 1.008; UROBILINOGEN,URINE NEGATIVE mg/dL (<2.0)
[2019-12-07 13:48] LABS: ALBUMIN 3.7 g/dL (3.5-5.0); ALKALINE PHOSPHATASE 94 U/L (38-126); ANION GAP 5 (5-19); ASPARTATE AMINO TRANSFERASE 20 U/L (14-36); BLOOD UREA NITROGEN 15 mg/dL (7-20); CALCIUM 8.8 mg/dL (8.4-10.2); CARBON DIOXIDE 29 mmol/L (22-30); CHLORIDE 106 mmol/L (98-107); GLUCOSE 110 mg/dL (75-110); POTASSIUM 3.6 mmol/L (3.6-5.0); TOTAL PROTEIN 6.4 g/dL (6.3-8.2)
--- NOTE | 2019-12-07 15:22 | RADIOLOGY REPORT (SQ) ---
EXAM DESCRIPTION: CT HEAD WITHOUT IMAGES COMPLETED DATE/TIME: 12/07/2019 3:08 pm REASON FOR STUDY: parkinsons disease/unable to stand COMPARISON: 03/12/2019 TECHNIQUE: Axial images acquired through the brain without intravenous contrast. Images reviewed wi th bone, brain and subdural windows. Additional sagittal and coronal reconstructions were generated. Images stored on PACS. All CT scanners at this facility use dose modulation, iterative reconstruction, and/or weight based d osing when appropriate to reduce radiation dose to as low as reasonably achievable (ALARA). [facility]: Dose Right [facility]: CareDose [facility]: Dose Right [facility]: Teradose 4D [facility]: Smart A123 Systems RADIATION DOSE: CT Rad equipment meets quality standard of care and radiation dose reduction techniq ues were employed. CTDIvol: 53.2 mGy. DLP: 1177 mGy-cm.mGy. LIMITATIONS: None. FINDINGS: VENTRICLES: Mildly prominent, related atrophy. Stable. CEREBRUM: Patchy small vessel disease. Chronic right frontal infarct. No change. No hemorrhage or mass or shift. CEREBELLUM: No masses. No hemorrhage. No alteration of density. No evidence for acute infarction. EXTRAAXIAL SPACES: No extra-axial hemorrhage or mass. ORBITS AND GLOBE: No intra- or extraconal masses. Normal contour of globe without masses. CALVARIUM: No fracture. PARANASAL SINUSES: No fluid or mucosal thickening. SOFT TISSUES: No mass or hematoma. OTHER: No other significant finding. IMPRESSION: Chronic changes. No acute intracranial abnormality. EVIDENCE OF ACUTE STROKE: NO. TECHNICAL DOCUMENTATION: JOB ID: [id number] Quality ID # [id number]: Final reports with documentation of one or more dose reduction techniques (e.g., Au tomated exposure control, adjustment of the mA and/or kV according to patient size, use of iterative reconstruction technique) 2010 [employer]- All Rights Reserved Reading location - IP/workstation name: [email or web address]
--- NOTE | 2019-12-07 15:29 | RADIOLOGY REPORT (SQ) ---
EXAM DESCRIPTION: PELVIS AP IMAGES COMPLETED DATE/TIME: 12/07/2019 3:10 pm REASON FOR STUDY: pain in hips/right greater than left COMPARISON: 2015. FINDINGS: One view pelvis. Osteopenia. No displaced fracture. Left hip arthroplasty intact as assessed. Degenerative changes left hip. TECHNICAL DOCUMENTATION: JOB ID: [id number] Reading location - IP/workstation name: [email or web address]
[2019-12-07] MEDS ORDERED: ACETAMINOPHEN 325 MG TABLET PO ONE (17:41)
--- NOTE | 2019-12-07 19:08 | ER Document Report ---
Entered by LAUREN JAIN SCRIBE 12/07/19 1444 Acting as scribe for:LEA HENNESSY MD ED General - General Chief Complaint: General Weakness Stated Complaint: WEAKNESS Time Seen by Provider: 12/07/19 14:29 Primary Care Provider: RENEA ZAPATA MD [Primary Care Provider] - Follow up as needed Mode of Arrival: Medic Information source: Patient Notes: This 74 year old female patient presents to the emergency department today with complaints of pain in her groin area the past x3 days. Patient states she uses a walker to move around and has not been able to walk by herself because of the pain. Patient states she fell x1 month ago and broke her middle and pointer fingers on her right hand. Patient states she has a headache, but that it is normal, and a history of Parkinson's disease. Patient states she has had a cough the past x3 days. TRAVEL OUTSIDE OF THE [place] IN LAST 30 DAYS: No - Related Data Allergies/Adverse Reactions: amoxicillin Allergy (Intermediate, Verified 12/07/19 12:46) Urticaria Home Medications: fludrocort, gabapentin, amantadine, mitrofurantoin, atorvastatin, benztropine, K CL, asa, tylenol Past Medical History - General Information source: Patient - Social History Smoking Status: Unknown if Ever Smoked Chew tobacco use (# tins/day): No Frequency of alcohol use: None Drug Abuse: None Lives with: Family Family History: Reviewed & Not Pertinent, Hypertension Patient has suicidal ideation: No Patient has homicidal ideation: No - Past Medical History Cardiac Medical History: Reports: Hx Hypercholesterolemia Pulmonary Medical History: Reports: Hx Bronchitis, Hx Pneumonia Neurological Medical History: Reports: Hx Cerebrovascular Accident - Multiple TIAs, Hx Parkinson's Disease Malignancy Medical History: Reports: Hx Breast Cancer GI Medical History: Reports: Hx Gastroesophageal Reflux Disease, Hx Ulcer - No history of bleeding ulcers Musculoskeletal Medical History: Reports Hx Arthritis Past Surgical History: Reports: Hx Breast Surgery - Right lumpectomy, Other - Port-A-Cath - Immunizations Hx Diphtheria, Pertussis, Tetanus Vaccination: No Review of Systems - Review of Systems Constitutional: No symptoms reported EENT: No symptoms reported Cardiovascular: No symptoms reported Respiratory: See HPI, Cough Gastrointestinal: No symptoms reported Genitourinary: No symptoms reported Female Genitourinary: No symptoms reported Musculoskeletal: See HPI, Other - Pain in groin area. Skin: No symptoms reported Hematologic/Lymphatic: No symptoms reported Neurological/Psychological: See HPI, Headaches Physical Exam - Vital signs Vitals: Pulse Ox 99 12/07/19 12:32 - General General appearance: Appears well, Alert - HEENT Head: Normocephalic, Atraumatic Eyes: Normal Pupils: PERRL Pharynx: Normal Neck: Supple - Respiratory Respiratory status: No respiratory distress Chest status: Nontender Breath sounds: Normal Chest palpation: Normal - Cardiovascular Rhythm: Regular Heart sounds: Normal auscultation, S1 appreciated, S2 appreciated Murmur: No - Abdominal Inspection: Normal Distension: No distension Bowel sounds: Normal Tenderness: Nontender - Extremities General upper extremity: Other - Lymphedema RUE from breast cancer. General lower extremity: Edema - Nonpitting, Other - Hips are tender with movement of legs bilaterally R>L. Range of motion of left leg normal, right leg needs assistance to lift up fully. No crepitus. No abnormalities. - Neurological Neuro grossly intact: Yes Cognition: Normal Orientation: AAOx4 - Psychological Associated symptoms: Normal affect, Normal mood - Skin Skin Temperature: Warm Skin Moisture: Dry Skin Color: Normal Course - Re-evaluation Re-evalutation: 12/07/19 18:13 Patient resting in bed comfortably - Vital Signs Vital signs: Temp Pulse Resp BP Pulse Ox 98.7 F 14 166/91 H 97 12/07/19 12:36 12/07/19 18:01 12/07/19 18:01 12/07/19 18:01 12/07/19 18:13 Vital signs stable - Laboratory Result Diagrams: 12/07/19 13:00 12/07/19 13:00 Laboratory results interpreted by me: 12/07/19 12/07/19 13:00 13:00 MCH 33.8 H Creatinine 0.42 L 12/07/19 18:16 Laboratory results essentially within normal limits. - Diagnostic Test Radiology reviewed: Image reviewed, Reports reviewed - . Radiology results interpreted by me: 12/07/19 18:15 Pelvis x-ray right hip arthroplasty degenerative changes on left. no acute process. Osteopenia noted CT scan of her head chronic changes no acute process no acute stroke. Chest x-ray no acute process. 12/07/19 19:04 Discharge - Discharge Clinical Impression: Parkinsons disease, Right hip pain, Osteoarthritis of hip Condition: Stable Disposition: HOME, SELF-CARE Additional Instructions: Muscle Strain You have strained a muscle -- torn the fibers within the muscle. This often occurs with strenuous exertion, or during an injury that suddenly stretches the muscle. The seriousness of a strain varies. Some strains heal within days, others cause problems for months. X-rays cannot show a muscle strain. X-rays are taken only if symptoms suggest that a fracture could be present. The usual treatment of a muscle strain is rest and ice packs. Sometimes, a sling, splint, or crutches may be necessary to rest the muscle. The muscle can be used again once pain subsides. Severe strains require a special exercise and stretching program to prevent permanent stiffness and disability. Your doctor will advise you if this will be necessary. Call the doctor immediately if pain or swelling becomes severe, or if numbness or discoloration develop. Today's x-rays does not show any fracture or acute injury to your hips. You state you have pain in your right hip greater than left. You have x-rays it did not show any acute fracture or injury to your hips today most likely your pain is soft tissue or muscle related. We recommend you take Tylenol 1000 mg twice daily Osteoarthritis Your symptoms are due to osteoarthritis. Osteoarthritis is inflammation caused by "wear and tear" of the joints. There is no cure for osteoarthritis, but medicine can help the pain and stiffness. It's important to keep the joints moving. Move the joints through their full range daily. Light exercise helps, but if exercise hurts, switch to a non-impact exercise like swimming. Local warmth may help ease pain. Call or return if any joint becomes severely swollen or increasingly pain ful, or if you have fever or spreading redness. Osteoarthritis Referrals: RENEA ZAPATA MD [Primary Care Provider] - Follow up as needed I personally performed the services described in the documentation, reviewed and edited the documentation which was dictated to the scribe in my presence, and it accurately records my words and actions.
[2019-12-07 20:12] VITALS: BP 160/85
--- NOTE | 2019-12-07 20:42 | EKG REPORT ---
SEVERITY:- NORMAL ECG - SINUS RHYTHM : Confirmed by: Jesus Manuel Sosa MD 07-Dec-2019 20:41:50
== END 2019-12-07 20:00 | disposition home or self-care (01) ==
LOC: ER 12:32
DX: M16.10 Unilateral primary osteoarthritis, unspecified hip (principal); R10.30 Lower abdominal pain, unspecified; M25.551 Pain in right hip; R51 Headache; R05 Cough; R60.0 Localized edema; G20 Parkinson's disease; E78.00 Pure hypercholesterolemia, unspecified; Z86.73 Personal history of transient ischemic attack (TIA), and cerebral infarction without residual deficits; Z85.3 Personal history of malignant neoplasm of breast; Z79.899 Other long term (current) drug therapy; Z79.82 Long term (current) use of aspirin; Z79.2 Long term (current) use of antibiotics; Z88.0 Allergy status to penicillin
CPT/HCPCS: 93005; 99285; 51701; 36415; 87040; 83605; 85025; 85610; 80053; 81001; 71045; 72170; 70450; 93010; A9270

== ENCOUNTER 2019-12-18 11:44 | Emergency (ER) | payer MEDICARE, OTHER ==
[2019-12-18 11:58] VITALS: BP 140/67
--- NOTE | 2019-12-18 11:58 | ER Document Report ---
ED Medical Screen (RME) - General Chief Complaint: Shoulder Pain Stated Complaint: SHOULDER PAIN Time Seen by Provider: 12/18/19 11:54 Primary Care Provider: RENEA ZAPATA MD [Primary Care Provider] - Follow up as needed Notes: Patient is a 74-year-old female who presents emergency department with multiple falls. She was seen by her physical therapist and was referred to the emergency department. Alvarado Munoz, physical therapist called and spoke to this provider. [phone]. He states that the patient fell 3 days in a row per family. Patient has had multiple falls within the past month. Patient states that she has right shoulder pain. Patient states that she has a hard time lifting up her arm. Patient has a history of Parkinson's disease. Exam: Tenderness to right medial posterior shoulder. I have greeted and performed a rapid initial assessment of this patient. A comprehensive ED assessment and evaluation of the patient, analysis of test results and completion of medical decision making process will be conducted by an additional ED providers. TRAVEL OUTSIDE OF THE [place] IN LAST 30 DAYS: No - Related Data Allergies/Adverse Reactions: amoxicillin Allergy (Intermediate, Verified 12/07/19 12:46) Urticaria Past Medical History - Past Medical History Cardiac Medical History: Reports: Hx Hypercholesterolemia Denies: Hx Congestive Heart Failure, Hx Heart Attack, Hx Hypertension Pulmonary Medical History: Reports: Hx Bronchitis, Hx Pneumonia Denies: Hx Asthma - sinuses, Hx COPD, Hx Tuberculosis Neurological Medical History: Reports: Hx Cerebrovascular Accident - Multiple TIAs, Hx Parkinson's Disease. Denies: Hx Seizures Renal/ Medical History: Denies: Hx End Stage Renal Disease, Hx Kidney Stones, Hx Peritoneal Dialysis Malignancy Medical History: Reports: Hx Breast Cancer GI Medical History: Reports: Hx Gastroesophageal Reflux Disease, Hx Ulcer - No history of bleeding ulcers. Denies: Hx Cirrhosis Musculoskeltal Medical History: Reports Hx Arthritis, Denies Hx Multiple Sclerosis Psychiatric Medical History: Denies: Hx Bipolar Disorder, Hx Depression, Hx Schizophrenia Past Surgical History: Reports: Hx Breast Surgery - Right lumpectomy, Other - Port-A-Cath - Immunizations Hx Diphtheria, Pertussis, Tetanus Vaccination: No Doctor's Discharge - Discharge Referrals: RENEA ZAPATA MD [Primary Care Provider] - Follow up as needed
[2019-12-18 12:22] LABS: ABSOLUTE BASOPHILS # (AUTO) 0.1 10^3/uL (0.0-0.2); ABSOLUTE EOSINOPHILS # (AUTO) 0.1 10^3/uL (0.0-0.6); ABSOLUTE LYMPHOCYTES (AUTO) 0.8 10^3/uL (0.5-4.7); ABSOLUTE MONOCYTES (AUTO) 0.3 10^3/uL (0.1-1.4); ABSOLUTE NEUT (AUTO) 4.5 10^3/uL (1.7-8.2); EOSINOPHILS % (AUTO) 1.3 % (0-6); HEMATOCRIT 42.4 % (36.0-47.0); HEMOGLOBIN 14.9 g/dL (12.0-15.5); LYMPHOCYTES % (AUTO) 14.7 % (13-45); MEAN CORPUSCULAR VOLUME 97 fl (80-97); MONOCYTES % (AUTO) 4.9 % (3-13); PLATELET COUNT 262 10^3/uL (150-450); RED BLOOD COUNT 4.37 10^6/uL (3.72-5.28); RED CELL DISTRIBUTION WIDTH 12.7 % (11.5-14.0); SEGMENTED NEUTROPHILS % (AUTO) 78.1 % (42-78); TOTAL CELLS COUNTED % (AUTO) 100 %; WHITE BLOOD COUNT 5.8 10^3/uL (4.0-10.5)
--- NOTE | 2019-12-18 12:26 | ER Document Report ---
ED General - General Chief Complaint: Fall Stated Complaint: SHOULDER PAIN Time Seen by Provider: 12/18/19 11:54 Primary Care Provider: RENEA ZAPATA MD [Primary Care Provider] - Follow up as needed Mode of Arrival: Medic Information source: Patient Notes: Patient is a 74-year-old female presenting to the emergency department via EMS chief complaint of accidental fall with resulting right-sided shoulder pain. Patient states she has had several falls recently she has decreased mobility. Patient denies frequency urgency burning with urination denies any loss of consciousness. She states that the main reason for falling is generalized weakness and her baseline of Parkinson's disease. TRAVEL OUTSIDE OF THE [place] IN LAST 30 DAYS: No - HPI Onset: This morning Onset/Duration: Sudden, Intermittent Quality of pain: Achy Severity: Mild Pain Level: 2 Associated symptoms: Weakness Exacerbated by: Movement, Walking Relieved by: Denies Similar symptoms previously: Yes Recently seen / treated by doctor: No - Related Data Allergies/Adverse Reactions: amoxicillin Allergy (Intermediate, Verified 12/07/19 12:46) Urticaria Past Medical History - General Information source: Patient - Social History Smoking Status: Never Smoker Chew tobacco use (# tins/day): No Frequency of alcohol use: None Drug Abuse: None Lives with: Family Family History: Reviewed & Not Pertinent, Hypertension Patient has suicidal ideation: No Patient has homicidal ideation: No - Past Medical History Cardiac Medical History: Reports: Hx Hypercholesterolemia Denies: Hx Congestive Heart Failure, Hx Heart Attack, Hx Hypertension Pulmonary Medical History: Reports: Hx Bronchitis, Hx Pneumonia Denies: Hx Asthma - sinuses, Hx COPD, Hx Tuberculosis Neurological Medical History: Reports: Hx Cerebrovascular Accident - Multiple TIAs, Hx Parkinson's Disease. Denies: Hx Seizures Renal/ Medical History: Denies: Hx End Stage Renal Disease, Hx Kidney Stones, Hx Peritoneal Dialysis Malignancy Medical History: Reports: Hx Breast Cancer GI Medical History: Reports: Hx Gastroesophageal Reflux Disease, Hx Ulcer - No history of bleeding ulcers. Denies: Hx Cirrhosis Musculoskeletal Medical History: Reports Hx Arthritis, Denies Hx Multiple Sclerosis Psychiatric Medical History: Denies: Hx Bipolar Disorder, Hx Depression, Hx Schizophrenia Past Surgical History: Reports: Hx Breast Surgery - Right lumpectomy, Other - Port-A-Cath - Immunizations Hx Diphtheria, Pertussis, Tetanus Vaccination: No Review of Systems - Review of Systems Notes: REVIEW OF SYSTEMS: CONSTITUTIONAL : Per HPI EENT: Denies eye, ear, throat, or mouth pain or symptoms. Denies nasal or sinus congestion. CARDIOVASCULAR: Denies chest pain. RESPIRATORY: Denies cough, cold, or chest congestion. Denies shortness of breath, difficulty breathing, or wheezing. GASTROINTESTINAL: Denies abdominal pain. Denies nausea, vomiting, or diarrhea. Denies constipation. GENITOURINARY: Denies difficulty urinating, painful urination, burning, frequency, or blood in urine. MUSCULOSKELETAL: Per HPI SKIN: Denies rash or skin lesions. HEMATOLOGIC : Denies easy bruising or bleeding. NEUROLOGICAL: Denies altered mental status or loss of consciousness. Denies headache. Denies weakness or paralysis or loss of use of either side. Denies problems with gait or speech. Denies sensory or motor loss. PSYCHIATRIC: Denies suicidal or homicidal ideations 10 Systems are negative unless otherwise specified above Physical Exam - Vital signs Vitals: Temp 98.6 F 12/18/19 11:52 - Notes Notes: PHYSICAL EXAMINATION: GENERAL: Well-appearing, well-nourished and in no acute distress. HEAD: Atraumatic, normocephalic. EYES: Pupils equal round and reactive to light, extraocular movements intact, sclera anicteric, conjunctiva are normal. ENT: nares patent, oropharynx clear without exudates. Moist mucous membranes. NECK: Normal range of motion, supple without lymphadenopathy, no appreciable JVD LUNGS: Lungs clear to auscultation bilaterally and equal. No wheezes rales or rhonchi. HEART: Regular rate and rhythm without murmurs ABDOMEN: Soft, nontender, normal bowel sounds. No guarding, no rebound. No mas ses appreciated. EXTREMITIES: Active full range of motion, patient does have mild tenderness to the right shoulder and scapular region datapower consultant strength is equal bilateral no pitting or edema. No cyanosis. 2+ pulses x4 NEUROLOGICAL: No focal neurological deficits. Moves all extremities spontaneousl y and on command. SKIN: Warm, Dry, and intact. Normal turgor, no rashes or lesions noted. Course - Re-evaluation Re-evalutation: 12/18/19 13:33 Patient has been maintained on a nuclear monitoring technician while in the emergency department. Patient has remained stable. I have reviewed the patient's laboratory and radiologic results and there are no significant abnormalities identified. I did contact the hospitalist and discuss the patient's concerns about possible fci placement and he agreed with what I had already told the patient which is there is at this time no reason to admit the patient to the hospitalist and likewise does not believe that the patient would meet criteria for fci admission immediately. I discussed this with the patient she has requested that we contact her daughter and explain things to her. 12/18/19 14:32 Patient will be discharged home in stable condition. Patient is recommended to follow-up with her primary care provider in the next couple of days as needed. - Vital Signs Vital signs: Temp Pulse Resp BP Pulse Ox 98.6 F 101 H 20 140/67 H 97 12/18/19 11:57 12/18/19 11:57 12/18/19 11:57 12/18/19 11:57 12/18/19 11:57 - Laboratory Result Diagrams: 12/18/19 12:10 12/18/19 12:10 Laboratory results interpreted by me: 12/18/19 12/18/19 12:10 12:10 MCH 34.0 H Seg Neutrophils % 78.1 H Creatinine 0.40 L Glucose 123 H AST 72 H ALT 46 H - Diagnostic Test Radiology reviewed: Reports reviewed Discharge - Discharge Clinical Impression: Accidental fall Qualifiers: Encounter type: initial encounter Qualified Code(s): W19.XXXA - Unspecified fall, initial encounter Shoulder pain, right Qualifiers: Chronicity: acute Qualified Code(s): M25.511 - Pain in right shoulder Condition: Stable Disposition: HOME, SELF-CARE Additional Instructions: Recommend rest and ice to the right shoulder and scapular region. Tylenol or Motrin use as needed for pain. Recommend following up with your primary care provider in the next couple of days. Referrals: RENEA ZAPATA MD [Primary Care Provider] - Follow up as needed
--- NOTE | 2019-12-18 12:36 | RADIOLOGY REPORT (SQ) ---
EXAM DESCRIPTION: CT HEAD WITHOUT IMAGES COMPLETED DATE/TIME: 12/18/2019 12:26 pm REASON FOR STUDY: fall COMPARISON: 12/07/2019 TECHNIQUE: Axial images acquired through the brain without intravenous contrast. Images reviewed wi th bone, brain and subdural windows. Additional sagittal and coronal reconstructions were generated. Images stored on PACS. All CT scanners at this facility use dose modulation, iterative reconstruction, and/or weight based d osing when appropriate to reduce radiation dose to as low as reasonably achievable (ALARA). [facility]: Dose Right [facility]: CareDose [facility]: Dose Right [facility]: Teradose 4D [facility]: [employer] RADIATION DOSE: CT Rad equipment meets quality standard of care and radiation dose reduction techniq ues were employed. CTDIvol: 53.2 mGy. DLP: 1017 mGy-cm.mGy. LIMITATIONS: None. FINDINGS: VENTRICLES: Prominent. CEREBRUM: No masses. No hemorrhage. No midline shift. Old right frontal lobe watershed infarct. A reas of low density in the white matter most likely due to chronic micro-vascular ischemic change. N o evidence for acute infarction. CEREBELLUM: No masses. No hemorrhage. No alteration of density. No evidence for acute infarction. EXTRAAXIAL SPACES: Age-related involutional change. No fluid collections. No masses. ORBITS AND GLOBE: No intra- or extraconal masses. Normal contour of globe without masses. CALVARIUM: No fracture. PARANASAL SINUSES: No fluid or mucosal thickening. SOFT TISSUES: No mass or hematoma. OTHER: No other significant finding. IMPRESSION: CHRONIC CHANGES OF ATROPHY AND MICROVASCULAR ISCHEMIA. NO ACUTE PROCESS. EVIDENCE OF ACUTE STROKE: NO. TECHNICAL DOCUMENTATION: JOB ID: [id number] Quality ID # [id number]: Final reports with documentation of one or more dose reduction techniques (e.g., Au tomated exposure control, adjustment of the mA and/or kV according to patient size, use of iterative reconstruction technique) 2010 [employer]- All Rights Reserved Reading location - IP/workstation name: [email or web address]
[2019-12-18 12:38] LABS: INTERNATIONAL RATION (INR) 0.93; PROTHROMBIN TIME 12.5 SEC (11.4-15.4)
[2019-12-18 12:39] LABS: PARTIAL THROMBOPLASTIN TIME 24.7 SEC (23.5-35.8)
[2019-12-18 12:40] LABS: ALBUMIN 3.7 g/dL (3.5-5.0); ALKALINE PHOSPHATASE 84 U/L (38-126); ANION GAP 7 (5-19); ASPARTATE AMINO TRANSFERASE 72 U/L (14-36); BILIRUBIN,TOTAL 0.8 mg/dL (0.2-1.3); BLOOD UREA NITROGEN 17 mg/dL (7-20); CALCIUM 9.1 mg/dL (8.4-10.2); CARBON DIOXIDE 28 mmol/L (22-30); CHLORIDE 103 mmol/L (98-107); GLUCOSE 123 mg/dL (75-110); POTASSIUM 3.9 mmol/L (3.6-5.0); TOTAL PROTEIN 6.4 g/dL (6.3-8.2)
--- NOTE | 2019-12-18 12:45 | RADIOLOGY REPORT (SQ) ---
EXAM DESCRIPTION: CHEST SINGLE VIEW IMAGES COMPLETED DATE/TIME: 12/18/2019 12:37 pm REASON FOR STUDY: fall COMPARISON: 12/07/2019 EXAM PARAMETERS: NUMBER OF VIEWS: One view. TECHNIQUE: Single frontal radiographic view of the chest acquired. RADIATION DOSE: NA LIMITATIONS: None. FINDINGS: LUNGS AND PLEURA: Right apical pleural thickening. No opacities, masses or pneumothorax. No pleural effusion. MEDIASTINUM AND HILAR STRUCTURES: No masses. Contour normal. HEART AND VASCULAR STRUCTURES: Heart normal in size. Normal vasculature. BONES: No acute findings. HARDWARE: None in the chest. OTHER: Unchanged position of left-sided port. IMPRESSION: NO ACUTE RADIOGRAPHIC FINDING IN THE CHEST. TECHNICAL DOCUMENTATION: JOB ID: [id number] 2010 [employer]- All Rights Reserved Reading location - IP/workstation name: [email or web address]
--- NOTE | 2019-12-18 12:46 | RADIOLOGY REPORT (SQ) ---
EXAM DESCRIPTION: SHOULDER RIGHT 2 OR MORE VIEWS IMAGES COMPLETED DATE/TIME: 12/18/2019 12:37 pm REASON FOR STUDY: fall; right shoulder pain COMPARISON: None. NUMBER OF VIEWS: Three views. TECHNIQUE: Internal rotation, external rotation, and Y view images acquired of the right shoulder. LIMITATIONS: None. FINDINGS: MINERALIZATION: Osteopenia. BONES: No acute fracture. No worrisome bone lesions. JOINTS: No dislocation. VISUALIZED LUNGS AND RIBS: No pneumothorax. No rib fracture. SOFT TISSUES: No radiopaque foreign body. OTHER: No other significant finding. IMPRESSION: NO RADIOGRAPHIC EVIDENCE OF ACUTE INJURY. TECHNICAL DOCUMENTATION: JOB ID: [id number] 2010 [employer]- All Rights Reserved Reading location - IP/workstation name: [email or web address]
--- NOTE | 2019-12-18 22:02 | EKG REPORT ---
SEVERITY:- BORDERLINE ECG - SINUS TACHYCARDIA BORDERLINE T WAVE ABNORMALITIES : Confirmed by: Ellen Gibbs MD 18-Dec-2019 22:02:20
== END 2019-12-18 15:39 | disposition home or self-care (01) ==
LOC: ER 11:44
DX: M25.511 Pain in right shoulder (principal); W19.XXXA Unspecified fall, initial encounter; G20 Parkinson's disease; R53.1 Weakness; Z88.0 Allergy status to penicillin; Z85.3 Personal history of malignant neoplasm of breast
CPT/HCPCS: 36415; 70450; 71045; 80053; 83735; 85025; 85610; 85730; 93005; 93010; 99284

== ENCOUNTER 2020-02-05 17:14 | Emergency (ER) | payer MEDICARE, OTHER ==
[2020-02-05 17:23] VITALS: BP 149/75
--- NOTE | 2020-02-05 18:09 | RADIOLOGY REPORT (SQ) ---
EXAM DESCRIPTION: CT HEAD WITHOUT IMAGES COMPLETED DATE/TIME: 02/05/2020 5:53 pm REASON FOR STUDY: facial droop COMPARISON: 12/18/2019 TECHNIQUE: Axial images acquired through the brain without intravenous contrast. Images reviewed wi th bone, brain and subdural windows. Additional sagittal and coronal reconstructions were generated. Images stored on PACS. All CT scanners at this facility use dose modulation, iterative reconstruction, and/or weight based d osing when appropriate to reduce radiation dose to as low as reasonably achievable (ALARA). [facility]: Dose Right [facility]: CareDose [facility]: Dose Right [facility]: Teradose 4D [facility]: [employer] RADIATION DOSE: CT Rad equipment meets quality standard of care and radiation dose reduction techniq ues were employed. CTDIvol: 23.9 mGy. DLP: 481 mGy-cm. LIMITATIONS: None. FINDINGS: VENTRICLES: Prominent, stable finding. The cisterns are patent. CEREBRUM: Chronic small vessel ischemic changes. Hypoattenuated area in the right frontal lobe, sta ble finding, probably related prior old infarct. No masses. No hemorrhage. No midline shift. No e vidence for acute infarction. Normal hernandez/white matter differentiation. No areas of low density in th e white matter. CEREBELLUM: No masses. No hemorrhage. No alteration of density. No evidence for acute infarction. EXTRAAXIAL SPACES: Age related involutional change. No fluid collections. No masses. ORBITS AND GLOBE: No intra- or extraconal masses. Normal contour of globe without masses. CALVARIUM: No fracture. PARANASAL SINUSES: No fluid or mucosal thickening. SOFT TISSUES: No mass or hematoma. OTHER: No other significant finding. IMPRESSION: 1. No significant interval changes since the prior examination dated 12/18/2019. No acu te intracranial abnormality. 2. Chronic small vessel ischemic changes, old right frontal lobe infarct, and atrophy. EVIDENCE OF ACUTE STROKE: NO COMMENT: Quality ID # 436: Final reports with documentation of one or more dose reduction techniques (e.g., Automated exposure control, adjustment of the mA and/or kV according to patient size, use of iterative reconstruction technique) TECHNICAL DOCUMENTATION: JOB ID: [id number] 2010 [employer] [place]- All Rights Reserved Reading location - IP/workstation name: [email or web address]
[2020-02-05 18:19] LABS: INTERNATIONAL RATION (INR) 1.01; PARTIAL THROMBOPLASTIN TIME 25.8 SEC (23.5-35.8); PROTHROMBIN TIME 13.4 SEC (11.4-15.4)
[2020-02-05 18:24] LABS: ABSOLUTE EOSINOPHILS # (AUTO) 0.1 10^3/uL (0.0-0.6); ABSOLUTE MONOCYTES (AUTO) 0.4 10^3/uL (0.1-1.4); ABSOLUTE NEUT (AUTO) 4.5 10^3/uL (1.7-8.2); BASOPHILS % (AUTO) 0.6 % (0-2); EOSINOPHILS % (AUTO) 1.2 % (0-6); HEMATOCRIT 39.6 % (36.0-47.0); HEMOGLOBIN 13.3 g/dL (12.0-15.5); LYMPHOCYTES % (AUTO) 17.2 % (13-45); MEAN CORPUSCULAR HGB CONC 33.6 g/dL (32.0-36.0); MEAN CORPUSCULAR VOLUME 98 fl (80-97); MONOCYTES % (AUTO) 6.7 % (3-13); PLATELET COUNT 178 10^3/uL (150-450); RED BLOOD COUNT 4.03 10^6/uL (3.72-5.28); RED CELL DISTRIBUTION WIDTH 12.9 % (11.5-14.0); SEGMENTED NEUTROPHILS % (AUTO) 74.3 % (42-78); TOTAL CELLS COUNTED % (AUTO) 100 %; WHITE BLOOD COUNT 6.1 10^3/uL (4.0-10.5)
[2020-02-05 18:45] LABS: ALBUMIN 3.8 g/dL (3.5-5.0); ALKALINE PHOSPHATASE 95 U/L (38-126); ANION GAP 7 (5-19); ASPARTATE AMINO TRANSFERASE 21 U/L (14-36); BILIRUBIN,TOTAL 0.8 mg/dL (0.2-1.3); BLOOD UREA NITROGEN 19 mg/dL (7-20); CARBON DIOXIDE 29 mmol/L (22-30); CHLORIDE 104 mmol/L (98-107); CREATINE KINASE 152 U/L (30-135); GLUCOSE 106 mg/dL (75-110); POTASSIUM 3.4 mmol/L (3.6-5.0); TOTAL PROTEIN 6.5 g/dL (6.3-8.2)
[2020-02-05 18:55] LABS: CREATINE KINASE MB 2.38 ng/mL (<4.55)
[2020-02-05 18:56] LABS: TROPONIN I < 0.012 ng/mL
--- NOTE | 2020-02-05 21:35 | ER Document Report ---
ED General - General Chief Complaint: Facial Droop Stated Complaint: WEAKNESS Time Seen by Provider: 02/05/20 20:23 Primary Care Provider: RENEA ZAPATA MD [Primary Care Provider] - Follow up as needed Notes: 75-year-old female brought in by her daughter due to concern for possible stroke. Patient apparently sustained a fall on Monday or Monday, was seen at outside facility and then discharged home. Daughter states that the patient has had a slight left-sided facial droop since then and the patient is complaining of mid and low back pain. Patient has a history of Parkinson's. Is not a good historian. Patient's complaint is the back pain and that she feels like she has had tearing from her left eye for the past 3 to 4 years. TRAVEL OUTSIDE OF THE [place] IN LAST 30 DAYS: No - Related Data Allergies/Adverse Reactions: amoxicillin Allergy (Intermediate, Verified 12/07/19 12:46) Urticaria Home Medications: acetominophen, amantadine, benzotropine, asa, atorvastatin, benadryl, fludrocortisone, gabapentin, nitrofurantoin kcl, sucrafate Past Medical History - General Information source: Patient - Social History Smoking Status: Never Smoker Frequency of alcohol use: None Family History: Hypertension Patient has homicidal ideation: No - Past Medical History Cardiac Medical History: Reports: Hx Hypercholesterolemia Denies: Hx Congestive Heart Failure, Hx Heart Attack, Hx Hypertension Pulmonary Medical History: Reports: Hx Bronchitis, Hx Pneumonia Denies: Hx Asthma - sinuses, Hx COPD, Hx Tuberculosis Neurological Medical History: Reports: Hx Cerebrovascular Accident - Multiple TIAs, Hx Parkinson's Disease. Denies: Hx Seizures Renal/ Medical History: Denies: Hx End Stage Renal Disease, Hx Kidney Stones, Hx Peritoneal Dialysis Malignancy Medical History: Reports: Hx Breast Cancer GI Medical History: Reports: Hx Gastroesophageal Reflux Disease, Hx Ulcer - No history of bleeding ulcers. Denies: Hx Cirrhosis Musculoskeletal Medical History: Reports Hx Arthritis, Denies Hx Multiple Sclerosis Psychiatric Medical History: Denies: Hx Bipolar Disorder, Hx Depression, Hx Schizophrenia Past Surgical History: Reports: Hx Breast Surgery - Right lumpectomy, Other - Port-A-Cath - Immunizations Hx Diphtheria, Pertussis, Tetanus Vaccination: No Review of Systems - Review of Systems Constitutional: No symptoms reported EENT: See HPI - Possible facial droop, Tearing. denies: Eye discharge, Blurred vision Cardiovascular: No symptoms reported Musculoskeletal: See HPI Neurological/Psychological: See HPI -: Yes All other systems reviewed and negative Physical Exam - Vital signs Vitals: Temp Pulse Resp BP Pulse Ox 98.4 F 78 16 149/75 H 97 02/05/20 17:22 02/05/20 17:22 02/05/20 17:22 02/05/20 17:22 02/05/20 17:22 Interpretation: Hypertensive - Notes Notes: GENERAL: Alert, interacts well. No acute distress. HEAD: Normocephalic, atraumatic EYES: Pupils equal, round and reactive to light, extraocular movements intact. ENT: Oral mucosa moist, tongue midline. NECK: Full range of motion, supple, trachea midline. LUNGS: Clear to auscultation bilaterally, no wheezes, rales or rhonchi, no respiratory distress. HEART: Regular rate and rhythm, no murmurs, gallops, rubs. ABDOMEN: Soft, nontender, nondistended, bowel sounds present in all 4 quadrants. BACK: Complains of pain when we sit her up however there is no midline bony tenderness to palpation and there are no step-offs or deformities. EXTREMITIES: Moves all 4 extremities spontaneously, no edema, radial and dorsalis pedis pulses 2/4 bilaterally. No cyanosis. NEUROLOGICAL: Alert and oriented x2, thinks she is in the location where "they fixed taxis", normal speech, cranial nerves II through XII grossly intact, biceps and patellar DTRs 2+ bilaterally. PSYCH: Normal mood, normal affect. SKIN: Warm, Dry, normal turgor. Course - Re-evaluation Re-evalutation: 02/06/20 02:23 CBC unremarkable, coags normal, CMP unremarkable, cardiac enzymes negative, urinalysis shows positive nitrates, trace leukocyte esterase, 3+ bacteria, this was catheterized and sent for culture. Head CT 02/05/20 17:41 IMPRESSION: 1. No significant interval changes since the prior examination dated 12/18/2019. No acute intracranial abnormality. 2. Chronic small vessel ischemic changes, old right frontal lobe infarct, and atrophy. EVIDENCE OF ACUTE STROKE: NO Head MRI 02/05/20 20:24 IMPRESSION: 1. No abnormal increased signal intensity is present on diffusion-weighted imaging to suggest restricted diffusion/acute infarction. 2. T2/flair weighted imaging reveals multifocal areas of patchy increased signal intensity present in a subcortical and periventricular deep white matter distribution, a nonspecific finding however may be seen with small vessel ischemic change. Lumbar Spine X-Ray 02/05/20 21:30 IMPRESSION: Mild compression fracture deformity involving the L3 vertebral body, approximately 30% height loss. Mild multilevel lumbar spondylosis. copyright 2010 [employer]- All Rights Reserved Thoracic Spine X-Ray 02/05/20 21:30 IMPRESSION: No definite acute osseous anomaly. copyright 2010 [employer]- All Rights Reserved Patient was sent for CT scan that did not show a subacute infarct, she was also sent for MRI as they are complaining that she has persistent left-sided facial droop that I do not see on physical examination since she had a fall a few days ago. There is no evidence of subacute infarct or acute infarct on there either. Patient does have a compression fracture although it is less than 50%. Likely will not benefit from kyphoplasty, however patient will be referred to Dr. Alvarado Hill for possible intervention. The patient's urinary tract infection could contribute to her frequent falls. 02/06/20 02:25 Patient does not meet admission criteria at this time. Patient will be started on Keflex. She has had cephalosporins in the past without difficulty. Called and spoke with the patient's daughter Alia Corral, Ms. Corral is concerned because the patient does not seem to be improving with physical therapy at home and is having frequent falls. The daughter is concerned that 1 of these days she may fall and seriously hurt herself. Patient's daughter would like to see if the patient could be transferred to inpatient physical therapy/physical rehabilitation. Discussed with her that patient does not have any condition requiring admission and the only way I know to accomplish inpatient physical therapy is a 3-day qualifying stay. I did however place a consult for discharge planning/social work to see if they could call and speak with the patient and her family members tomorrow to discuss if they have any other ideas on how she may be able to qualify for inpatient physical therapy. - Vital Signs Vital signs: Temp Pulse Resp BP Pulse Ox 98.4 F 78 16 149/75 H 97 02/05/20 17:23 02/05/20 17:41 02/05/20 17:41 02/05/20 17:41 02/05/20 17:41 - Laboratory Result Diagrams: 02/05/20 18:00 02/05/20 18:00 Laboratory results interpreted by me: 02/05/20 02/05/20 02/06/20 18:00 18:00 01:02 MCV 98 H Potassium 3.4 L Creatine Kinase 152 H Urine Ketones 20 H Urine Nitrite POSITIVE H Ur Leukocyte Esterase TRACE H Discharge - Discharge Clinical Impression: UTI (urinary tract infection) Qualifiers: Urinary tract infection type: acute cystitis Hematuria presence: without hematuria Qualified Code(s): N30.00 - Acute cystitis without hematuria Compression fx, lumbar spine Qualifiers: Encounter type: initial encounter Lumbar vertebra fracture level: L3 Qualified Code(s): S32.030A - Wedge compression fracture of third lumbar vertebra, initial encounter for closed fracture Condition: Stable Disposition: HOME, SELF-CARE Additional Instructions: Today we did not find any signs of a stroke. She does have a compression fracture of L3. It is approximately 30%. These can be quite painful. I have prescribed Lidoderm patches to help with the pain. Narcotic level pain medication will likely increase her confusion and increase her falls and is not a good idea. If she is having significant pain from it please consider calling Dr. Alvarado Hill to discuss the possibility of kyphoplasty or other surgery that may help to re-inflate her lumbar vertebrae. She may or may not be a candidate as frequently they will only do it if there is more than a 50% compression and her's is only 30%. She does have a urinary tract infection. There is no no evidence of overwhelming infection. If she develops fevers, confusion, worsening falls or any new or concerning symptoms please return to the emergency department. Prescriptions: Cephalexin Monohydrate [Keflex 500 mg Capsule] 500 mg PO BID 5 Days capsule Referrals: RENEA ZAPATA MD [Primary Care Provider] - Follow up as needed ALVARADO HILL MD [ACTIVE STAFF] - Follow up as needed
--- NOTE | 2020-02-05 22:15 | RADIOLOGY REPORT (SQ) ---
EXAM DESCRIPTION: MR BRAIN WITHOUT IV CONTRAST COMPLETED DATE/TME: 02/05/2020 20:24 CLINICAL INDICATION: 75-year-old female with left-sided facial droop and altered mental status. COMPARISON: MRI brain 06/20/2014. TECHNIQUE: Multiplanar, multi-sequence MR imaging of the brain without intravenous administration of contrast. FINDINGS: No abnormal increased signal intensity is present on diffusion-weighted imaging to suggest restricted diffusion/acute infarction. T2/flair weighted imaging reveals multifocal areas of patchy increased signal intensity present in a subcortical and periventricular deep white matter distribution, a nonspecific finding however may be seen with small vessel ischemic change. Subcentimeter focus of increased T2 signal intensity within the lateral LEFT cerebellum compatible with sequela of prior infarction. Gliosis and encephalomalacia at the level of the anterior RIGHT frontal lobe compatible with sequela of prior infarction. There is no evidence of intracranial hemorrhage, mass or edema. Midline structures are within normal limits. The ventricles and sulci are enlarged compatible with underlying volume loss. Major intracranial flow voids are identified. The paranasal sinuses and mastoid air cells are patent. IMPRESSION: 1. No abnormal increased signal intensity is present on diffusion-weighted imaging to suggest restricted diffusion/acute infarction. 2. T2/flair weighted imaging reveals multifocal areas of patchy increased signal intensity present in a subcortical and periventricular deep white matter distribution, a nonspecific finding however may be seen with small vessel ischemic change.
--- NOTE | 2020-02-05 22:17 | RADIOLOGY REPORT (SQ) ---
EXAM DESCRIPTION: XR THORACIC SPINE 2 VIEWS COMPLETED DATE/TME: 02/05/2020 21:30 CLINICAL HISTORY: 75 years, Female, fall, back pain COMPARISON: None. NUMBER OF VIEWS: 2 TECHNIQUE: Frontal and lateral radiograph were acquired LIMITATIONS: None. FINDINGS: Left carotid approach central venous catheter tip is located in the upper SVC. Visualized portions of the lungs are clear. Surgical clips project over the right upper quadrant, suggesting prior cholecystectomy. There is mild rightward curvature of the thoracic spine. Thoracic vertebral body heights and alignments appear overall maintained. Only mild multilevel thoracic spondylosis is noted, designated by intervertebral space narrowing, hypertrophic endplate spurring, and facet hypertrophy. No definite acute fracture or malalignment. IMPRESSION: No definite acute osseous anomaly. copyright 2010 [employer]- All Rights Reserved
--- NOTE | 2020-02-05 22:19 | RADIOLOGY REPORT (SQ) ---
EXAM DESCRIPTION: XR LUMBAR SPINE ANTEROPOSTERIOR, LATERAL, AND OBLIQUES COMPLETED DATE/TME: 02/05/2020 21:30 CLINICAL HISTORY: 75 years, Female, fall, back pain COMPARISON: Prior study from 03/12/2019. NUMBER OF VIEWS: 4 TECHNIQUE: Frontal, lateral, and oblique radiographs were acquired LIMITATIONS: None. FINDINGS: 5 nonrib-bearing lumbar type vertebral bodies are evident. There is mild compression deformity involving the L3 vertebral body with approximately 30% height loss. Otherwise, mild multilevel lumbar spondylosis is evident, designated by multilevel facet arthropathy. Arterial calcinosis is evident. Partially imaged postsurgical changes of right hip arthroplasty are noted. IMPRESSION: Mild compression fracture deformity involving the L3 vertebral body, approximately 30% height loss. Mild multilevel lumbar spondylosis. copyright 2010 [employer]- All Rights Reserved
[2020-02-06 01:22] LABS: APPEARANCE,URINE SLIGHTLY-CLOUDY; BILIRUBIN,URINE NEGATIVE (NEGATIVE); COLOR,URINE YELLOW; GLUCOSE, URINE NEGATIVE (NEGATIVE); KETONES,URINE 20 mg/dL (NEGATIVE); LEUKOCYTE ESTERASE,URINE TRACE (NEGATIVE); NITRITE,URINE POSITIVE (NEGATIVE); PROTEIN,URINE NEGATIVE (NEGATIVE); UROBILINOGEN,URINE NEGATIVE mg/dL (<2.0)
[2020-02-06] MEDS ORDERED: CEPHALEXIN 500 MG CAPSULE PO ONE (02:18)
[2020-02-06] MEDS ORDERED: LIDOCAINE 5% (700 MG) TRANSDERMAL ADH..PATCH TP ONE (02:18)
== END 2020-02-06 03:23 | disposition home or self-care (01) ==
LOC: ER 17:14
DX: N30.00 Acute cystitis without hematuria (principal); S32.030A Wedge compression fracture of third lumbar vertebra, initial encounter for closed fracture; W19.XXXA Unspecified fall, initial encounter; M47.816 Spondylosis without myelopathy or radiculopathy, lumbar region; G20 Parkinson's disease; R29.6 Repeated falls; E78.00 Pure hypercholesterolemia, unspecified; Z79.899 Other long term (current) drug therapy; Z79.82 Long term (current) use of aspirin; Z79.52 Long term (current) use of systemic steroids; Z85.3 Personal history of malignant neoplasm of breast; Z88.0 Allergy status to penicillin; Z86.73 Personal history of transient ischemic attack (TIA), and cerebral infarction without residual deficits
CPT/HCPCS: 99285; 51701; 36415; 82553; 82550; 85025; 85610; 85730; 80053; 81001; 84484; 70551; 72110; 72070; 70450; A9270 ×2; 87086; 87088